=== PATIENT | female | born 1980 | race African-American/Black ===

== ENCOUNTER 2017-07-27 04:04 | Emergency (ER) | payer MEDICAID ==
[~2017-07-27] VITALS: Ht 165.1 cm; Wt 59.9 kg
[2017-07-27 05:16] LABS: Basophils # (auto) 0.1 uL; Basophils % (auto) 0.6 % (0.0-2.0); Eosinophils # (auto) 0 uL; Eosinophils % (auto) 0.2 % (0.0-7.0); Hematocrit 33.6 % (36.0-46.0); Hemoglobin 11.3 g/dL (12.2-16.2); Lymphocytes # (auto) 1.9 uL; Lymphocytes % (auto) 20.9 % (10.0-50.0); Mean Corpuscular Hemoglobin 33.9 pg (28.0-32.0); Mean Corpuscular Hgb Conc. 33.5 g/dL (32.0-36.0); Monocytes # (auto) 0.5 uL; Neutrophils # (auto) 6.5 uL; Neutrophils % (auto) 72.3 % (37.0-80.0); Nucleated Red Blood Cells % 0.1 %; Platelet Count (auto) 380 10^3/uL (140-450); Red Cell Distribution Width 13.4 % (11.8-14.3); White Blood Cell 8.9 10^3/uL (4.4-10.8)
[2017-07-27 05:35] LABS: Albumin 2.3 g/dL (3.4-5.0); BUN/Creatinine Ratio 16.2; Calcium 8.5 mg/dL (8.5-10.1); Magnesium 2.1 mg/dL (1.6-2.6); Potassium 3.5 mmol/L (3.5-5.1)
[2017-07-27 05:38] LABS: Total Protein 7.6 g/dL (6.4-8.2)
[2017-07-27 08:01] VITALS: BP 123/88
[2017-07-27] MEDS ORDERED: KETOROLAC TROMETH 30 MG/ML 1ML VIAL ONE (08:18)
[2017-07-27] MEDS ORDERED: ONDANSETRON HCL 4 MG/2 ML VIAL ONE (08:19)
[2017-07-27] MEDS ORDERED: ONDANSETRON HCL 4 MG/2 ML VIAL IV ONE (08:30)
[2017-07-27] MEDS ORDERED: KETOROLAC TROMETH 30 MG/ML 1ML VIAL IV ONE (08:30)
[2017-07-27] MEDS ORDERED: SODIUM CHLORIDE 0.9% 1,000 ML IV ONE (08:30)
== END 2017-07-27 11:28 | disposition home or self-care (01) ==
LOC: ER 04:13
DX: E43 Unspecified severe protein-calorie malnutrition (principal); Z68.22 Body mass index [BMI] 22.0-22.9, adult; R11.2 Nausea with vomiting, unspecified; R19.7 Diarrhea, unspecified; Z98.890 Other specified postprocedural states
CPT/HCPCS: 36415; 74176; 80053; 82150; 83690; 83735; 84702; 85025; 96361; 96374; 96375; 99285; J1885; J2405; J7030

== ENCOUNTER 2020-01-27 12:23 | Emergency (ER) | payer MEDICAID ==
[~2020-01-27] VITALS: Ht 162.6 cm; Wt 49.9 kg
[2020-01-27 12:48] LABS: Basophils # (auto) 0.1 10 ^3/uL (0-0.2); Basophils % (auto) 0.5 % (0.0-2.0); Eosinophils # (auto) 0.1 10 ^3/uL (0-0.8); Eosinophils % (auto) 0.5 % (0.0-7.0); Hemoglobin 9.6 g/dL (12.2-16.2); Lymphocytes # (auto) 2.3 10 ^3/uL (0.4-5.4); Lymphocytes % (auto) 20.1 % (10.0-50.0); Mean Corpuscular Hgb Conc. 32.1 g/dL (32.0-36.0); Mean Corpuscular Volume 96.6 fL (80.0-100.0); Monocytes # (auto) 0.8 10 ^3/uL (0-1.3); Monocytes % (auto) 6.7 % (0.0-12.0); Neutrophils # (auto) 8.2 10 ^3/uL (1.6-8.6); Neutrophils % (auto) 72.2 % (37.0-80.0); Platelet Count (auto) 382 10^3/uL (140-450); Red Blood Cells 3.11 10^6/uL (4.0-5.20); Red Cell Distribution Width 17.3 % (11.8-14.3); White Blood Cell 11.3 10^3/uL (4.4-10.8)
[2020-01-27 13:08] LABS: Alanine Aminotransferase 40 U/L (13-56); Albumin 2.7 g/dL (3.4-5.0); Anion Gap 9 (5-15); Blood Alcohol < 3.0 mg/dL (0-5); Blood Urea Nitrogen 4 mg/dL (7-18); Calcium 8.5 mg/dL (8.5-10.1); Carbon Dioxide 26 mmol/L (21-32); Chloride 102 mmol/L (98-107); Glucose 84 mg/dL (74-106); Potassium 3.9 mmol/L (3.5-5.1); Sodium 137 mmol/L (136-145)
[2020-01-27 13:10] LABS: Acetaminophen 4.6 ug/mL (10-30); Salicylate < 1.7 mg/dL (2.8-20.0)
[2020-01-27 13:11] LABS: Alkaline Phosphatase 153 U/L (45-117); Aspartate Aminotransferase 143 U/L (15-37); BUN/Creatinine Ratio 6.3; Bilirubin, Total 1.3 mg/dL (0.2-1.0); GFR African American 134 mL/min; GFR Non-African American 110 mL/min; Total Protein 7.9 g/dL (6.4-8.2)
[2020-01-27 17:00] VITALS: BP 98/63
== END 2020-01-27 19:36 | disposition home or self-care (01) ==
LOC: EDBD 12:23 → ER 12:23
DX: R45.851 Suicidal ideations (principal)
CPT/HCPCS: 36415; 80053; 80320; 80329; 85025

== ENCOUNTER 2020-07-01 15:50 | Inpatient (IN) | payer OTHER, MEDICAID ==
[~2020-07-01] VITALS: Ht 170.2 cm; Wt 93.8 kg
[2020-07-01] MEDS ORDERED: SODIUM CHLORIDE 0.9% 1,000 ML IVB ONE (16:15)
[2020-07-01] MEDS ORDERED: cefTRIAXone 1GM/50ML D5W 50 ML IV ONE (16:15)
[2020-07-01 17:00] LABS: Basophils # (auto) 0 10 ^3/uL (0-0.2); Eosinophils # (auto) 0 10 ^3/uL (0-0.8); Hemoglobin 7.3 g/dL (12.2-16.2); Monocytes # (auto) 1.4 10 ^3/uL (0-1.3); Monocytes % (auto) 9.6 % (0.0-12.0)
[2020-07-01 17:01] LABS: Basophils % (auto) 0.3 % (0.0-2.0); Hematocrit 23.3 % (36.0-46.0); Lymphocytes # (auto) 2.6 10 ^3/uL (0.4-5.4); Lymphocytes % (auto) 17.3 % (10.0-50.0); Mean Corpuscular Hemoglobin 35.1 pg (28.0-32.0); Mean Corpuscular Hgb Conc. 31.6 g/dL (32.0-36.0); Mean Corpuscular Volume 111.1 fL (80.0-100.0); Neutrophils # (auto) 10.8 10 ^3/uL (1.6-8.6); Neutrophils % (auto) 72.8 % (37.0-80.0); Nucleated Red Blood Cells % 0.2 %; Platelet Count (auto) 318 10^3/uL (140-450); Red Blood Cells 2.09 10^6/uL (4.0-5.20); White Blood Cell 14.8 10^3/uL (4.4-10.8)
[2020-07-01 17:05] LABS: Red Cell Distribution Width 27.1 % (11.8-14.3)
[2020-07-01 17:07] LABS: Alanine Aminotransferase 18 U/L (13-56); Albumin 1.4 g/dL (3.4-5.0); Anion Gap 12 (5-15); Blood Urea Nitrogen 10 mg/dL (7-18); Calcium 6.9 mg/dL (8.5-10.1); Carbon Dioxide 19 mmol/L (21-32); Chloride 104 mmol/L (98-107); Glucose 116 mg/dL (74-106); Potassium 3.5 mmol/L (3.5-5.1); Sodium 135 mmol/L (136-145)
[2020-07-01 17:10] LABS: Lactic Acid w/Reflex 7.4 mmol/L (0.4-2.0)
[2020-07-01 17:15] LABS: Alkaline Phosphatase 131 U/L (45-117); Aspartate Aminotransferase 115 U/L (15-37); Bilirubin, Total 3.5 mg/dL (0.2-1.0); GFR African American 44 mL/min; GFR Non-African American 37 mL/min; Total Protein 6.9 g/dL (6.4-8.2)
[2020-07-01] MEDS ORDERED: SODIUM CHLORIDE 0.9% 1,000 ML IV ONE (17:45)
[2020-07-01] MEDS: NOREPINEPHRINE 8 MG/250ML KIT 250 ML IV SCH (19:20)
[2020-07-01 22:27] LABS: Urine Bacteria NONE SEEN /hpf (None Seen); Urine Blood 2+ /uL (Negative); Urine Hyaline Cast MANY /lpf (0 - 2); Urine Mucus FEW (None Seen); Urine Specific Gravity 1.023 (1.001-1.035); Urine WBC 28 /hpf (0 - 5); Urine WBC Clumps PRESENT /hpf (None Seen)
[2020-07-01 22:34] LABS: Amphetamine Screen, Urine NEGATIVE (NEGATIVE); Barbiturate Scree,Urine NEGATIVE (NEGATIVE); Benzodiazephine Screen, Urine NEGATIVE (NEGATIVE); Cannabinoid Screen, Urine NEGATIVE (NEGATIVE); Cocaine Screen, Urine NEGATIVE (NEGATIVE); Opiate Scree,Urine NEGATIVE (NEGATIVE); Phencyclidine Screen, Urine NEGATIVE (NEGATIVE)
[2020-07-02] VITALS (66 sets, daily range): BP systolic 84–111; BP diastolic 44–63
[2020-07-02] MEDS ORDERED: MORPHINE SULF INJ 2 MG/ML SYRINGE 1ML IV PRN (00:45)
[2020-07-02] MEDS ORDERED: SODIUM CHLORIDE 0.9% 1,000 ML IV SCH (00:45)
[2020-07-02] MEDS ORDERED: NITROGLYCERIN 0.4 MG SL TAB SL PRN (00:45)
--- NOTE | 2020-07-02 02:45 | NUR ---
RECIEVED PATIENT BY SEAN FROM ER. PLACED IN ICU BED 107. NEW EKG PADS AND LEADS APPLIED. O2 SAT HOOKED UP. LEVOPHED AT 8 MCG. NS AT 100CC/HR. HAS 2 PERIPHERAL IVS. 20G IN RAC AND 20G IN LEFT FOREARM. BOTH SHOW NO REDNESS, SWELLING OR DRNG. BLACK INDEPENDENTLY. AMELIA. SPEECH SLOW. ORIENTED TO SELF AND FAMILY. ANSWERING YES TO ALL QUIESTIONS ASKED OF HER. SHE IS NOT GIVING DETAILS OF DATES , TIMES AND HOW SHE GOT HERE. SHE JUST REMEMBERS BEING WEAK. LACTIC ACID IS HIGH AND IS COMING DOWN. HISTORY OF ANEMIA, HG IS 7.3. CALLED CHRISTIANO TO INFORM HIM OF WHERE SHE WAS AND HER CURRENT CONDITION. PASSWORD SET UP. SOME HISTORY AND CURRENT MEDICATION LIST OBTAINED FROM HIM.
[2020-07-02] MEDS ORDERED: SUCR1TAB22 OR (03:53)
[2020-07-02] MEDS ORDERED: GABA250S2 PO (03:56)
[2020-07-02] MEDS ORDERED: AMIT25TA9 PO (03:57)
[2020-07-02] MEDS ORDERED: CYCL7.5T45 PO (03:58)
--- NOTE | 2020-07-02 04:00 | NUR ---
ORIENTED TO HERSELF, THE FACT THAT SHE IS IN THE HOSPITAL. KEEPS SAYING "YES " TO EVERYTHING. SOFIA
--- NOTE | 2020-07-02 04:07 | NUR ---
AM LABS DRAWN
[2020-07-02 04:19] LABS: Basophils # (auto) 0.1 10 ^3/uL (0-0.2); Basophils % (auto) 0.5 % (0.0-2.0); Eosinophils # (auto) 0 10 ^3/uL (0-0.8); Eosinophils % (auto) 0.2 % (0.0-7.0); Hematocrit 23.6 % (36.0-46.0); Hemoglobin 7.3 g/dL (12.2-16.2); Lymphocytes # (auto) 5.5 10 ^3/uL (0.4-5.4); Mean Corpuscular Hemoglobin 35.4 pg (28.0-32.0); Mean Corpuscular Hgb Conc. 30.8 g/dL (32.0-36.0); Mean Corpuscular Volume 114.9 fL (80.0-100.0); Monocytes # (auto) 1.3 10 ^3/uL (0-1.3); Monocytes % (auto) 7.5 % (0.0-12.0); Neutrophils # (auto) 10.8 10 ^3/uL (1.6-8.6); Neutrophils % (auto) 60.8 % (37.0-80.0); Nucleated Red Blood Cells % 0.2 %; Platelet Count (auto) 311 10^3/uL (140-450); Red Blood Cells 2.05 10^6/uL (4.0-5.20); Red Cell Distribution Width 27.4 % (11.8-14.3); White Blood Cell 17.7 10^3/uL (4.4-10.8)
[2020-07-02 04:42] LABS: Albumin 1.4 g/dL (3.4-5.0); Calcium 6.6 mg/dL (8.5-10.1); Magnesium 2.1 mg/dL (1.6-2.6); Potassium 3.5 mmol/L (3.5-5.1)
[2020-07-02 04:45] LABS: BUN/Creatinine Ratio 9.4; Bilirubin, Total 3.5 mg/dL (0.2-1.0); Phosphorus 3.1 mg/dL (2.5-4.90)
[2020-07-02] MEDS: PIPERACILLIN-TAZOB 3.375GM 100 ML IV SCH ×3 (05:28→21:33)
--- NOTE | 2020-07-02 05:30 | NUR ---
ORIENTED TO SELF AND THAT SHE IS IN THE HOSPITAL. SPIT A SMALL AMOUNT OF COFFEE GROUND ON TO THE RAIL OF THE BED AND FLOOR.
[2020-07-02] MEDS: ONDANSETRON HCL 4 MG/2 ML VIAL IV PRN (06:38)
--- NOTE | 2020-07-02 06:50 | NUR ---
ZOFRAN FOR NAUSEA. VOMITED A SMALL AMOUNT OF COFFEE GROUND
[2020-07-02] MEDS ORDERED: HEPARIN SODIUM (PORCINE) 5000 UNITS/ML 1ML VIAL IV SCH (10:00)
[2020-07-02] MEDS: PANTOPRAZOLE 40 MG/10 ML VIAL INJ IV SCH ×2 (10:12→21:33)
[2020-07-02] MEDS: D5W/LACTATED RINGERS 1,000 ML IV SCH ×2 (10:13→18:29)
--- NOTE | 2020-07-02 10:26 | NUR ---
Resumed care at 0725, orders reviewed and ongoing assessments being done. Upon arrival in bed asleep but easily awaken. Was able to state name only and not speaking in sentences. Only answering yes to all questions. Very weak and lethargic. Oriented to staff, place, situation and plan of care. Dr. Martinez phoned in at 0827. Discussed case and reviewed data. New orders obtained. Collected urine and sent to lab. for culture. Dr. Shafer in for GI consult. At bedside and discussed case. Lab work ordered. Maintaining NPO at this time and IVF running at 150/hour. PICC line nurse at bedside to insert a Midline. Spoke with Jose earlier and updated on plan of care.
--- NOTE | 2020-07-02 10:40 | NUR ---
Midline Placement: Patient educated on need for midline placement. All risks and benefits explained and all questions and concerns addresses prior to procedure. 18g/10cm midline inserted via left brachial vein using Ultrasound. Sterile technique utilized. Blood return obtained from the single lumen and flushed easily with NS using proper technique. Midline secured with saline lock; biodisc and occlusive dressing applied. Primary RN notified. Midline lot # [id number]
[2020-07-02 11:29] LABS: % Iron Saturation 88.3 % (15-50)
[2020-07-02 11:54] LABS: Folate (Folic Acid) 3.01 ng/mL (5.38-24)
[2020-07-02] MEDS ORDERED: CYANOCOBALAMIN (B-12) 1000 MCG/1 ML VIAL SUBCUT ONE (12:00)
[2020-07-02] MEDS ORDERED: FOLIC ACID 1 MG in D5W 5% 50 ML INJ ONE (12:00)
[2020-07-02] MEDS ORDERED: THIAMINE 100mg/ml INJ (200mg/2ml VIAL) IV ONE (12:15)
[2020-07-02] MEDS: SODIUM FERR GLUC 62.5MG/5ML 125 MG in SODIUM CHL 0.9% 100 ML IV SCH (12:30)
[2020-07-02] MEDS: NOREPINEPHRINE 8 MG/250ML KIT 250 ML IV SCH (14:12)
[2020-07-02] MEDS: MORPHINE SULF INJ 2 MG/ML SYRINGE 1ML IV PRN (14:18)
--- NOTE | 2020-07-02 14:57 | NUR ---
Dr. Allison resumed care and rounded at 1159 am. Discussed case at bedside and reviewed plan of care. Dr. Allison called and spoke to Jose. New orders obtained and carried out. Midline was inserted to left upper arm by Beth DOSHI, tolerated procedure well. Has been sleeping most of the shift. Medicated with Morphine 1 mg IVP at 1414. Moaning and guarding abdomen. When asked if in pain she shook her head yes. Still no speaking in sentences, only a few words at a time.
[2020-07-02 17:24] LABS: Beta HCG, Quantitative < 1 mlU/mL (1-3); Thyroid Stimulating Hormone 0.58 uIU/mL (0.358-3.74)
--- NOTE | 2020-07-02 18:38 | NUR ---
Was transported to radiology at [address] scan of the abdomen secondary to pain. Escorted by Edna DOSHI. Returned to unit at 1546 without incident. Is now awake and able to make needs known. Remains weak but is able to hold a conversation and able to use the call light. Reviewed the need for hospitalization and plan of care. No nausea at this time and remains on Levophed for hemodynamic stability. She expressed that she does not want us speaking with her Jose Johnson and would prefer us to contact her sister Elsy Aranda [phone]. Jose just phoned and made him aware of her wishes.
--- NOTE | 2020-07-02 19:40 | NUR ---
OPENING NOTE REPORT RECEIVED FROM OCTAVIA DOSHI. PATIENT IS A/OX4 AT THIS TIME, ABLE TO ANSWER ALL QUESTIONS APPROPRIATELY. PATIENT IS CONNECTED TO CONTINUOUS BEDSIDE MONITORS. HEART RATE IN LOW 100'S, SPO2 95% ON ROOM AIR. IV TO LEFT UPPER ARM MIDLINE RUNNING D5WLR @150ML/HR AND LEVOPHED AT 8MCG/MIN. PERIPHERAL IV TO LEFT FOREARM RUNNING NS TKO @10ML/HR. PHYSICAL ASSESSMENT DONE-SEE INTERVENTIONS. LEUNG DRAINING DARK HUY URINE TO GRAVITY. PATIENT DENIES ANY PAIN OR DISTRESS AT THIS TIME. POC DISCUSSED WITH PATIENT. WILL MONITOR BP CLOSELY.
--- NOTE | 2020-07-02 20:46 | NUR ---
AM SERUM GLUCOSE 66 - FINGER STICK 168
[2020-07-03] VITALS (96 sets, daily range): BP systolic 89–115; BP diastolic 51–78
[2020-07-03] MEDS: D5W/LACTATED RINGERS 1,000 ML IV SCH ×3 (00:44→14:36)
--- NOTE | 2020-07-03 00:52 | NUR ---
PAGED HOSPITALIST HOSPITALIST PAGED REGARDING: PATIENT C/O ITCHING. PATIENT STATES, "IT FEELS LIKE SOMETHING IS CRAWLING ON MY HEAD AND CHEST". PATIENT IS RESTLESS AND KEEPS SCRATCHING HEAD AND ABDOMINAL AREA. PATIENT REQUESTS, "CAN I HAVE SOMETHING TO HELP THE ITCHING?". NO CURRENT ORDERS. AWAITING CALL BACK FROM .
--- NOTE | 2020-07-03 00:55 | NUR ---
MD CALLED BACK SPOKE WITH HOSPITALIST . UPDATED MD ON PATIENT STATUS AND PATIENT C/O CONSTANT ITCHING. NEW TELEPHONE ORDER RECEIVED FOR BENADRYL 50MG PO ONE TIME. ORDER READ BACK AND VERIFIED, WILL CARRY OUT ORDER.
[2020-07-03] MEDS ORDERED: diphenhdrAMINE HCL 25 MG CAP PO ONE (01:00)
[2020-07-03] MEDS: ONDANSETRON HCL 4 MG/2 ML VIAL IV PRN ×2 (01:07→15:30)
--- NOTE | 2020-07-03 01:37 | NUR ---
BLADDER SCAN PATIENT URINE IS DARK HUY IN COLOR, VERY LITTLE URINE NOTED IN LEUNG BAG. BLADDER SCAN PERFORMED, ONLY 41ML DETECTED. PATIENT DENIES ANY FEELINGS OF FULLNESS OR DISTENTION. WILL CONTINUE TO MONITOR CLOSELY.
--- NOTE | 2020-07-03 01:51 | NUR ---
ROUNDED: COVERING ASSIGNED RN FOR BREAK. PATIENT DENIES ANY NEEDS AT THIS TIME. DENIES PAIN, NO PAIN BEHAVIORS IDENTIFIED. DOES NOT WANT THE LIGHTS TURNED OFF. EVEN AND UNLABORED BREATHING. NO SIGNS OF DISTRESS, VSS. WILL ENDORSE CARE BACK TO ASSIGNED RN
--- NOTE | 2020-07-03 02:46 | NUR ---
HOSPITALIST PAGED HOSPITALIST PAGED REGARDING: PATIENT STILL FEELING ITCHY, SCRATCHING NON STOP. WILL WAIT FOR MD TO CALL BACK.
--- NOTE | 2020-07-03 02:51 | NUR ---
MD CALLED BACK SPOKE WITH MD GEORGE. MD UPDATED ON PATIENT STATUS AND PATIENT COMPLAINT OF CONSTANT ITCHING. NEW ORDER TO RESTART PATIENT HOME DOSE OF GABAPENTIN 600MG TID, STARTING NOW. ORDER READ BACK AND VERIFIED, WILL CARRY OUT ORDER.
[2020-07-03] MEDS: GABAPENTIN 300 MG CAP PO SCH ×4 (03:09→21:53)
--- NOTE | 2020-07-03 04:30 | NUR ---
AM CARE PATIENT GIVEN COMPLETE BED BATH USING CHG WIPES. ALL NEW LINEN AND GOWN PROVIDED TO PATIENT. PATIENT WAS ABLE TO ASSIST WITH TURNING. SKIN REASSESSED AT THIS TIME, NO CHANGES NOTED, SKIN ALL INTACT.
[2020-07-03 04:35] LABS: Basophils # (auto) 0.1 10 ^3/uL (0-0.2); Basophils % (auto) 0.4 % (0.0-2.0); Eosinophils # (auto) 0.1 10 ^3/uL (0-0.8); Mean Corpuscular Hemoglobin 35.3 pg (28.0-32.0); Monocytes # (auto) 1.5 10 ^3/uL (0-1.3); Monocytes % (auto) 8.8 % (0.0-12.0); Neutrophils % (auto) 59.7 % (37.0-80.0); Nucleated Red Blood Cells % 0.1 %; White Blood Cell 17.2 10^3/uL (4.4-10.8)
[2020-07-03 04:37] LABS: Eosinophils % (auto) 0.9 % (0.0-7.0); Hematocrit 20.6 % (36.0-46.0); Lymphocytes # (auto) 5.2 10 ^3/uL (0.4-5.4); Lymphocytes % (auto) 30.2 % (10.0-50.0); Mean Corpuscular Hgb Conc. 31.7 g/dL (32.0-36.0); Mean Corpuscular Volume 111.6 fL (80.0-100.0); Neutrophils # (auto) 10.3 10 ^3/uL (1.6-8.6); Platelet Count (auto) 287 10^3/uL (140-450); Red Blood Cells 1.84 10^6/uL (4.0-5.20)
[2020-07-03 04:43] LABS: Hemoglobin 6.5 g/dL (12.2-16.2); Red Cell Distribution Width 26.6 % (11.8-14.3)
[2020-07-03 04:54] LABS: Lactic Acid w/Reflex 3.4 mmol/L (0.4-2.0)
[2020-07-03 04:55] LABS: Potassium 2.6 mmol/L (3.5-5.1)
[2020-07-03 04:58] LABS: Albumin 1.3 g/dL (3.4-5.0); BUN/Creatinine Ratio 15.2; Bilirubin, Total 3.3 mg/dL (0.2-1.0); Calcium 6.6 mg/dL (8.5-10.1); Total Protein 6.8 g/dL (6.4-8.2)
--- NOTE | 2020-07-03 05:08 | NUR ---
PAGED PAGED HOSPITALIST REGARDING CRITICAL HEMOGLOBIN AND POTASSIUM LEVELS. AWAITING CALL BACK.
[2020-07-03] MEDS: PIPERACILLIN-TAZOB 3.375GM 100 ML IV SCH ×3 (05:36→21:53)
--- NOTE | 2020-07-03 06:07 | NUR ---
MEDICATION HELD 0600 GABAPENTIN HELD. PATIENT WAS RESTARTED ON GABAPENTIN AT 0300 THIS AM.
--- NOTE | 2020-07-03 06:11 | NUR ---
RE-PAGED HOSPITALIST REGARDING PATIENTS CRITICAL HGB AND POTASSIUM LEVELS. STILL AWAITING FOR A CALL BACK.
--- NOTE | 2020-07-03 06:19 | NUR ---
HOSPITALIST CALLED BACK SPOKE WITH . UPDATED MD ON CRITICAL LAB VALUES. MD AWARE THAT PATIENT IS A JEHOVAH WITNESS AND HAS REFUSED ANY BLOOD PRODUCT. PATIENT SIGNED BLOOD PRODUCT REFUSAL FORM, WITNESSED BY GLENDA JACKSON. MD MADE AWARE OF CRITICAL POTASSIUM LEVEL OF 2.6. NEW ORDER RECEIVED FOR 80MEQ K-RIDER IV. ORDER READ BACK AND VERIFIED. ALSO MENTIONED TO MD THAT TOTAL URINE OUTPUT FOR SHIFT WAS 200ML. PER MD, "LET'S WAIT UNTIL HER ELECTROLYTES ARE REPLACED AND SEE IF OUTPUT IMPROVES".
[2020-07-03] MEDS: POTASSIUM CHL 20MEQ/100ML 100 ML IV SCH ×4 (06:42→13:25)
--- NOTE | 2020-07-03 07:15 | NUR ---
CLOSING REPORT ENDORSED TO OCTAVIA COWAN PATIENT ON 2MCG/MIN OF LEVO, D5WLR AT 150ML/HR. K RIDER RUNNING THROUGH LEFT FOREARM IV. PATIENT SLEEPING, NO SIGNS OF DISTRESS.
--- NOTE | 2020-07-03 08:00 | NUR ---
Opening Shift Note Assumed care of patient, laying in bed, eyes closed, arousable to shaking, patient was given Benadryl IV at 0100. No S/S of distress/SOB or pain. See interventions for complete assessment. Bed locked on low position, side rails up x2, bed alarms on at all times, call trimble within reach, instructed on POC and to call for assist PRN, will continue to monitor for changes Q1hr and PRN.
[2020-07-03] MEDS: PANTOPRAZOLE 40 MG/10 ML VIAL INJ IV SCH ×2 (09:25→21:53)
[2020-07-03] MEDS: THIAMINE 100mg/ml INJ (200mg/2ml VIAL) IV SCH (09:26)
[2020-07-03] MEDS: CYANOCOBALAMIN (B-12) 1000 MCG/1 ML VIAL SUBCUT SCH ×2 (10:00→10:14)
[2020-07-03] MEDS: FOLIC ACID 1 MG in D5W 5% 50 ML INJ SCH (10:11)
--- NOTE | 2020-07-03 10:26 | NUR ---
Patient refused B12 injection, unable to waste med on the pyxiNoreen hamm [facility] ED informed.
--- NOTE | 2020-07-03 11:43 | NUR ---
Dr Shafer at bedside, updated on patient's status. Patient seen and examined. Will carry our new orders.
[2020-07-03] MEDS ORDERED: POTASSIUM CHL 20 Meq TABLET PO ONE (12:30)
--- NOTE | 2020-07-03 12:50 | NUR ---
Dr Clemons at bedside. Updated on patient's status. Patient seen and examined. Will carry out new orders.
--- NOTE | 2020-07-03 12:55 | NUR ---
Per Dr Clemons patient can be transferred to TRAE once off Levophed drip.
[2020-07-03] MEDS: SODIUM FERR GLUC 62.5MG/5ML 125 MG in SODIUM CHL 0.9% 100 ML IV SCH (13:26)
--- NOTE | 2020-07-03 15:00 | NUR ---
Patient started throwing up after finishing lunch at 1400, will keep patient NPO at this time and give Zofran PRN. Will continue to monitor.
--- NOTE | 2020-07-03 16:00 | NUR ---
Levophed turned off, will continue to monitor.
--- NOTE | 2020-07-03 18:45 | NUR ---
Patient's urine output 150ml for the past 12 hours, paged Dr Goode and called back, will carry out new orders.
[2020-07-03] MEDS ORDERED: ALBUMIN 25% 50 ML IV ONE (19:00)
[2020-07-03 19:11] LABS: BUN/Creatinine Ratio 18.9; Potassium 3.9 mmol/L (3.5-5.1)
--- NOTE | 2020-07-03 19:30 | NUR ---
OPENING NOTE REPORT RECEIVED FROM OCTAVIA DOSHI PATIENT IS A/OX4 CONNECTED TO CONTINUOUS MONITORS. PATIENT IS ON ROOM AIR WITH SPO2 >95%, NO SIGNS OF DISTRESS NOTED. MIDLINE TO LEFT UPPER ARM RUNNING D5WLR AT 100ML/HR. IV TO LEFT FOREARM RUNNING NS TKO AT 10ML/HR. BOTH IV SITES ARE PATENT AND ASYMPTOMATIC. LEUNG DRAINING DARK HUY URINE TO GRAVITY. PHYSICAL ASSESSMENT DONE-SEE INTERVENTIONS. CALL LIGHT WITHIN REACH.
[2020-07-04] VITALS (42 sets, daily range): BP systolic 93–112; BP diastolic 49–73
[2020-07-04] MEDS: D5W/LACTATED RINGERS 1,000 ML IV SCH ×2 (00:25→11:44)
[2020-07-04] MEDS: ALBUMIN 25% 50 ML IV SCH ×3 (03:16→21:09)
--- NOTE | 2020-07-04 04:30 | NUR ---
AM CARE PATIENT WAS GIVEN COMPLETE BED BATH AND LINEN CHANGE. PATIENT CLEANED WITH CHG WIPES. FACE CLEANED WITH WARM SOAPY WASH CLOTH. COMPLETE LINEN CHANGE PROVIDED ALONG WITH GOWN. PATIENT ABLE TO ASSIST WITH TURNS. SKIN REASSESSED AT THIS TIME, NO CHANGE AT THIS TIME.
[2020-07-04 04:57] LABS: Basophils # (auto) 0 10 ^3/uL (0-0.2); Eosinophils # (auto) 0.1 10 ^3/uL (0-0.8); Hematocrit 18.1 % (36.0-46.0); Neutrophils # (auto) 7.2 10 ^3/uL (1.6-8.6); Nucleated Red Blood Cells % 0.3 %; Red Blood Cells 1.67 10^6/uL (4.0-5.20)
[2020-07-04 04:59] LABS: Basophils % (auto) 0.3 % (0.0-2.0); Eosinophils % (auto) 0.6 % (0.0-7.0); Lymphocytes # (auto) 2.7 10 ^3/uL (0.4-5.4); Lymphocytes % (auto) 24.3 % (10.0-50.0); Mean Corpuscular Hemoglobin 35.2 pg (28.0-32.0); Mean Corpuscular Hgb Conc. 32.6 g/dL (32.0-36.0); Mean Corpuscular Volume 108.2 fL (80.0-100.0); Monocytes # (auto) 1.2 10 ^3/uL (0-1.3); Monocytes % (auto) 10.4 % (0.0-12.0); Neutrophils % (auto) 64.4 % (37.0-80.0); Platelet Count (auto) 240 10^3/uL (140-450); White Blood Cell 11.2 10^3/uL (4.4-10.8)
[2020-07-04 05:01] LABS: Hemoglobin 5.9 g/dL (12.2-16.2); Red Cell Distribution Width 25.3 % (11.8-14.3)
[2020-07-04 05:15] LABS: Albumin 1.6 g/dL (3.4-5.0); Calcium 7.1 mg/dL (8.5-10.1); Potassium 3.4 mmol/L (3.5-5.1)
[2020-07-04 05:17] LABS: BUN/Creatinine Ratio 17.3; Bilirubin, Total 3.3 mg/dL (0.2-1.0); Total Protein 6.4 g/dL (6.4-8.2)
--- NOTE | 2020-07-04 05:21 | NUR ---
CRITICAL HGB PATIENT HAS A CRITICAL HEMOGLOBIN LEVEL OF 5.9. PATIENT IS A JEHOVAH WITNESS WITH A SIGNED REFUSAL FOR ANY BLOOD PRODUCTS. NO ACTIVE BLEED NOTED, VITALS STABLE.
[2020-07-04] MEDS: PIPERACILLIN-TAZOB 3.375GM 100 ML IV SCH ×3 (05:28→21:08)
[2020-07-04] MEDS: GABAPENTIN 300 MG CAP PO SCH ×3 (05:29→21:12)
--- NOTE | 2020-07-04 05:50 | NUR ---
REPORT/SBAR CALLED AND GAVE REPORT TO GLENAD REGAN TO ASSUME CARE OF PATIENT. ALL QUESTIONS ANSWERED.
--- NOTE | 2020-07-04 06:03 | NUR ---
ICU patient trans to TRAE URSULA MONTOYA transferred to room 264 via gurney on campus monitor and portable 02. All patient medications and personal belongings transferred with patient to receiving floor. Patient care transferred to GLENDA Fulton.
--- NOTE | 2020-07-04 06:10 | NUR ---
Received report from Fabiola DOSHI. Pt brought to room 264 and connected to unit monitor. Pt introduced to Primary RN Kirstin and CHEVY Harman. No S/S of distress at this time. Will continue to monitor.
[2020-07-04] MEDS: MORPHINE SULF INJ 2 MG/ML SYRINGE 1ML IV PRN (07:07)
--- NOTE | 2020-07-04 07:07 | NUR ---
Pt states pain 8/10 to lower back. Morphine given. Will continue to monitor.
--- NOTE | 2020-07-04 07:15 | NUR ---
START OF SHIFT RECEIVED PATIENT AWAKE AND PREPARED FOR BREAKFAST SITTING UP IN BED, PAIN RELIEVED BY MEDICATION; STILL SLIGHT ITCHY FEELING NO RASH, TRAY GIVEN AND STARTED EATING. O2 SAT GOOD ON ROOM AIR, ALERT AND COOPERATIVE.
--- NOTE | 2020-07-04 07:30 | NUR ---
Pt remains stable. Resting in bed watching TV. Report given to AM shift, care endorsed.
[2020-07-04] MEDS: PANTOPRAZOLE 40 MG/10 ML VIAL INJ IV SCH ×2 (10:17→21:08)
[2020-07-04] MEDS: THIAMINE 100mg/ml INJ (200mg/2ml VIAL) IV SCH (10:23)
[2020-07-04] MEDS: FOLIC ACID 1 MG in D5W 5% 50 ML INJ SCH (10:39)
[2020-07-04] MEDS ORDERED: POTASSIUM EFFERVESENT TAB 25 MEQ PO ONE (10:45)
[2020-07-04] MEDS ORDERED: diphenhdrAMINE HCL 25 MG CAP PO SCH (11:30)
[2020-07-04] MEDS: Ensure HIGH Protein Chocolate 8oz Bottle PO SCH ×3 (12:00→22:00)
[2020-07-04] MEDS: SODIUM FERR GLUC 62.5MG/5ML 125 MG in SODIUM CHL 0.9% 100 ML IV SCH (12:44)
[2020-07-04] MEDS: diphenhdrAMINE HCL 50 MG/1 ML VL IV SCH ×2 (13:45→17:32)
--- NOTE | 2020-07-04 15:00 | NUR ---
RN NOTES PATIENT RESTING COMFORTABLY AFTER BENADRYL GIVEN IV ORDERED FOR ITCHING, NO RASH NOTED ON SKIN, PATIENT ALLOWED TO SLEEP, ATE LITTLE AT LUNCH.
--- NOTE | 2020-07-04 18:30 | NUR ---
SHIFT SUMMARY PATIENT RESTING MOSTLY AFTER BENADRYL FOR ITCHING, REMAINS TO HAVE POOR APPETITE AND WOULD ONLY TAKE ICE CHIPS, TURNS TO SIDE WITH SOME HELP, MONITOR SHOW SINUS TACHYCARDIA 110-120 EVEN WHEN ASLEEP, O2 SATURATION GOOD ON ROOM AIR, IV'S INTACT AND PATENT.
[2020-07-05] VITALS: BP 103/52
[2020-07-05] MEDS: ONDANSETRON HCL 4 MG/2 ML VIAL IV PRN ×2 (01:30→03:16)
[2020-07-05] MEDS: guaiFENesin-DM 100/10mg/5ml SYR PO PRN ×2 (02:00→03:16)
[2020-07-05 04:00] VITALS: BP 90/46
[2020-07-05] MEDS: D5W/LACTATED RINGERS 1,000 ML IV SCH ×3 (04:30→12:54)
[2020-07-05 05:58] LABS: Albumin 1.9 g/dL (3.4-5.0); Calcium 7.2 mg/dL (8.5-10.1); Potassium 3.4 mmol/L (3.5-5.1)
[2020-07-05] MEDS: diphenhdrAMINE HCL 50 MG/1 ML VL IV SCH ×4 (06:00→18:00)
[2020-07-05] MEDS: Ensure HIGH Protein Chocolate 8oz Bottle PO SCH ×4 (06:00→21:30)
[2020-07-05 06:02] LABS: BUN/Creatinine Ratio 15.4; Bilirubin, Total 4.7 mg/dL (0.2-1.0); Total Protein 6.4 g/dL (6.4-8.2)
[2020-07-05] MEDS: PIPERACILLIN-TAZOB 3.375GM 100 ML IV SCH ×3 (06:26→21:30)
[2020-07-05] MEDS: GABAPENTIN 300 MG CAP PO SCH ×3 (06:26→21:42)
[2020-07-05 07:16] LABS: Basophils # (auto) 0.1 10 ^3/uL (0-0.2); Basophils % (auto) 0.4 % (0.0-2.0); Eosinophils # (auto) 0.1 10 ^3/uL (0-0.8); Eosinophils % (auto) 0.7 % (0.0-7.0); Lymphocytes # (auto) 2.6 10 ^3/uL (0.4-5.4); Lymphocytes % (auto) 18.7 % (10.0-50.0); Mean Corpuscular Hemoglobin 35.8 pg (28.0-32.0); Mean Corpuscular Hgb Conc. 33.4 g/dL (32.0-36.0); Mean Corpuscular Volume 107.3 fL (80.0-100.0); Monocytes # (auto) 1.4 10 ^3/uL (0-1.3); Monocytes % (auto) 9.9 % (0.0-12.0); Neutrophils # (auto) 9.9 10 ^3/uL (1.6-8.6); Neutrophils % (auto) 70.3 % (37.0-80.0); Nucleated Red Blood Cells % 0.5 %; Platelet Count (auto) 260 10^3/uL (140-450); Red Blood Cells 1.68 10^6/uL (4.0-5.20)
[2020-07-05 07:17] LABS: Red Cell Distribution Width 25.4 % (11.8-14.3)
[2020-07-05 08:00] VITALS: BP 99/50
--- NOTE | 2020-07-05 08:00 | NUR ---
OPENING SHIFT NOTE Received report from NOC RNKirstin. Assume care of patient. Received patient lying in bed, connected to bedside monitor with alarms in place. Patient is A&Ox4, but slow to respond. Patient c/o pain 7/10 to back and will medicate appropriately. Patient with no other s/s of distress noted. Patient on 2L NC with O2 sats 100%. Left upper arm midline #18 patent with IV antibiotics infusing. Guthrie draining clear wayne urine. Bed in lowest position, rails x3 up and call light within reach. Updated on plan of care. Will continue to monitor.
--- NOTE | 2020-07-05 08:13 | NUR ---
Pt remains flat affect during this shift. Emesis at 0115 100ml bile. Pt bathed and linens changed. Denied nausea but was coughing so much she vomited. MD paged for orders, cough medicine ordered. Pt refusing Benadryl stating something happens to her when she gets it but does not say what is happening. Pt also refused PM gabapentin and ensure drink. Report given to AM shift, care endorsed.
[2020-07-05] MEDS: MORPHINE SULF INJ 2 MG/ML SYRINGE 1ML IV PRN ×2 (09:23→18:28)
[2020-07-05] MEDS: FOLIC ACID 1 MG in D5W 5% 50 ML INJ SCH (10:37)
[2020-07-05] MEDS: THIAMINE 100mg/ml INJ (200mg/2ml VIAL) IV SCH (10:38)
[2020-07-05] MEDS: PANTOPRAZOLE 40 MG/10 ML VIAL INJ IV SCH ×2 (10:38→21:30)
[2020-07-05 12:00] VITALS: BP 102/56
[2020-07-05] MEDS: SODIUM FERR GLUC 62.5MG/5ML 125 MG in SODIUM CHL 0.9% 100 ML IV SCH (12:02)
--- NOTE | 2020-07-05 12:23 | NUR ---
MD Dr Clemons at bedside to see patient.
[2020-07-05] MEDS ORDERED: PARoxetine 20 MG TAB PO ONE (12:30)
[2020-07-05] MEDS ORDERED: POTASSIUM CHL 20 Meq TABLET PO ONE (12:30)
[2020-07-05] MEDS ORDERED: POTASSIUM EFFERVESENT TAB 25 MEQ PO ONE (13:00)
--- NOTE | 2020-07-05 14:00 | NUR ---
MEDICATIONS Held 1400 Gabapentin. Patient sleeping and difficult to wake. Previous dose taken late. Patient still with effervescent potassium at bedside that she hasn't completed. Will continue to monitor.
--- NOTE | 2020-07-05 14:10 | NUR ---
Nutrition Assessment Notes Please refer to link for full assessment notes. Est Energy needs: 9207-0258 kcals (23-25 kcal/kgBW) Est Protein needs: 57-71 gms/day (0.8-1.0 gm/kgBW) Will continue to monitor and reassess prn. Addendum: 07/05/20 at [address] Amended: Links added.
[2020-07-05 16:00] VITALS: BP 93/50
--- NOTE | 2020-07-05 19:00 | NUR ---
RECEIVED REPORT FROM NURSE SOLORIO TO RESUME CARE OF PATIENT. PATIENT HAS BEEN DOWNGRADED TO TELEMETRY TODAY AWAITING BED PLACEMENT.
--- NOTE | 2020-07-05 19:01 | NUR ---
CLOSING SHIFT NOTE Patient sitting up in bed finishing up dinner tray. Patient is tele downgrade, awaiting bed placement. HSS/CN aware. Patient has been receiving Morphine prn for pain throughout shift. Patient with no c/o emesis/nausea during day. Patient has orders to discontinue gaxiola, but patient refused until physical therapy starts working with her. PT attempted but patient declined due to sleepiness. Will endorse removal to PETROS RN. Report to be given to Jessica MORRELL RN.
--- NOTE | 2020-07-05 19:45 | NUR ---
Opening Shift Note Assumed care of patient, awake and alert and oriented x4 in bed lying comfortably. No S/S of distress/SOB or pain 0/10. Instructed on POC and that she is downgraded to telemetry awaiting bed placement and to call for assist PRN, will continue to monitor for changes Q1hr and PRN.
[2020-07-05 20:00] VITALS: BP 102/53
--- NOTE | 2020-07-05 22:10 | NUR ---
GAVE REPORT TO NURSE BIRCH TO RESUME CARE OF PATIENT. TRANSFERRED PATIENT TO TELEMETRY BED AND PLACED PATIENT ON TELE BOX #63. PATIENT IN NO APPARENT CARDIAC OR RESPIRATORY DISTRESS OR COMPLAINTS OF PAIN OR ANY DISCOMFORT. PATIENT HAS LEUNG DRAINING TEA COLORED URINE TO GRAVITY. SALINE LOCK PATIENT IV ACCESS MIDLINE TO FRITZ. ALL BELONGINGS WITH PATIENT. PATIENT TRANSFERRED TO ROOM 272B ACCOMPANIED WITH BRADLEY.
--- NOTE | 2020-07-05 22:30 | NUR ---
TRAE pt transferred to floor URSULA MONTOYA transfered to 272B via rney on bias cutting machine operator #[id number]. All patient medications and personal belongings transfered with patient to receiving floor. Patient care transfered to QUETA DOSHI.
[2020-07-06] MEDS: diphenhdrAMINE HCL 50 MG/1 ML VL IV SCH ×3 (00:48→11:41)
[2020-07-06 05:00] VITALS: BP 98/59
[2020-07-06] MEDS: D5W/LACTATED RINGERS 1,000 ML IV SCH ×2 (05:21→22:18)
[2020-07-06] MEDS: MORPHINE SULF INJ 2 MG/ML SYRINGE 1ML IV PRN ×4 (05:55→22:57)
[2020-07-06] MEDS: PIPERACILLIN-TAZOB 3.375GM 100 ML IV SCH ×3 (06:29→22:19)
[2020-07-06] MEDS: GABAPENTIN 300 MG CAP PO SCH ×3 (06:29→22:19)
[2020-07-06] MEDS: Ensure HIGH Protein Chocolate 8oz Bottle PO SCH ×4 (07:05→22:19)
[2020-07-06 09:00] VITALS: BP 99/59
[2020-07-06] MEDS: PANTOPRAZOLE 40 MG/10 ML VIAL INJ IV SCH (09:09)
[2020-07-06] MEDS: THIAMINE 100mg/ml INJ (200mg/2ml VIAL) IV SCH (09:09)
[2020-07-06] MEDS: PARoxetine 20 MG TAB PO SCH (09:10)
--- NOTE | 2020-07-06 09:10 | NUR ---
Scheduled medications given per order. Patient requested medication for back pain. Will medicate. Addendum: 07/06/20 at 09 by ELIESER OSPINA RN RN Patient medicated for 03/17 back pain. Patient stable at this time.
[2020-07-06] MEDS ORDERED: LACTULOSE 20Gm/30ML SOLN PO PRN (10:00)
[2020-07-06] MEDS: FOLIC ACID 1 MG in D5W 5% 50 ML INJ SCH (11:41)
--- NOTE | 2020-07-06 12:05 | NUR ---
Patient resting comfortably in bed with eyes closed. No distress noted. Patient stable.
--- NOTE | 2020-07-06 12:25 | NUR ---
Patient stable with Dr. Clemons at bedside.
[2020-07-06 13:00] VITALS: BP 100/59
--- NOTE | 2020-07-06 14:05 | NUR ---
Scheduled medications given per order. Patient stable at this time.
--- NOTE | 2020-07-06 16:00 | NUR ---
Patient resting comfortably in bed with no distress noted. Patient stable.
[2020-07-06 17:00] VITALS: BP 89/56
--- NOTE | 2020-07-06 18:24 | NUR ---
Patient medicated for 6/10 back pain. Patient stable at this time.
--- NOTE | 2020-07-06 18:47 | NUR ---
Patient resting quietly in bed; states pain is slowly subsiding. Patient stable throughout shift.
[2020-07-06 22:00] VITALS: BP 108/66
[2020-07-07 05:00] VITALS: BP 99/45
[2020-07-07] MEDS: MORPHINE SULF INJ 2 MG/ML SYRINGE 1ML IV PRN ×2 (05:37→09:28)
[2020-07-07] MEDS: PIPERACILLIN-TAZOB 3.375GM 100 ML IV SCH ×3 (05:55→21:57)
[2020-07-07] MEDS: GABAPENTIN 300 MG CAP PO SCH ×3 (05:56→21:58)
[2020-07-07] MEDS: Ensure HIGH Protein Chocolate 8oz Bottle PO SCH ×4 (05:56→21:57)
[2020-07-07 07:01] LABS: Hematocrit 19.1 % (36.0-46.0); Mean Corpuscular Hgb Conc. 32.8 g/dL (32.0-36.0); Mean Corpuscular Volume 109.9 fL (80.0-100.0); Platelet Count (auto) 315 10^3/uL (140-450); Red Blood Cells 1.74 10^6/uL (4.0-5.20); White Blood Cell 20.3 10^3/uL (4.4-10.8)
[2020-07-07 07:16] LABS: Potassium 3.3 mmol/L (3.5-5.1)
[2020-07-07 07:21] LABS: Albumin 1.6 g/dL (3.4-5.0); BUN/Creatinine Ratio 14.6; Bilirubin, Total 4.8 mg/dL (0.2-1.0); Calcium 7.2 mg/dL (8.5-10.1); Total Protein 6.5 g/dL (6.4-8.2)
[2020-07-07 07:23] LABS: Red Cell Distribution Width 25.9 % (11.8-14.3)
[2020-07-07 07:27] LABS: Hemoglobin 6.3 g/dL (12.2-16.2)
[2020-07-07 07:28] LABS: Basophils % (manual) 0 (0.0-2.0); Blast Cells 0; Myelocytes % 0; Promyelocytes % 0; Reactive Lymphocytes 0
--- NOTE | 2020-07-07 07:50 | NUR ---
Patient eating breakfast at this time. Requested medication for back pain. Explained that pain med was given at 0537; due prn q4h. Patient stable at this time.
[2020-07-07 08:00] VITALS: BP 110/60
[2020-07-07 08:05] LABS: Band Neutrophils % (manual) 1; Eosinophils % (manual) 2 (0-7); Lymphocytes % (manual) 19 (10.0-50.0); Metamyelocytes % 1; Monocytes % (manual) 5 (0-12)
[2020-07-07] MEDS: FOLIC ACID 1 MG TAB PO SCH (09:26)
[2020-07-07] MEDS: PARoxetine 20 MG TAB PO SCH (09:26)
[2020-07-07] MEDS: PANTOPRAZOLE 40 MG TAB PO SCH (09:26)
[2020-07-07] MEDS: THIAMINE HCL 100 MG TAB PO SCH (09:27)
--- NOTE | 2020-07-07 09:29 | NUR ---
Scheduled medications and pain medication given per order. Patient resting quietly in bed at this time. Stable.
--- NOTE | 2020-07-07 10:40 | NUR ---
Received call back from Dr. Clemons. Doctor informed of critical lab: hgb 6.3. No new order given (pt is [facility]).
[2020-07-07 12:00] VITALS: BP 104/57
[2020-07-07] MEDS ORDERED: SODIUM FERR GLUC 62.5MG/5ML 125 MG in SODIUM CHL 0.9% 100 ML IV ONE (12:15)
[2020-07-07] MEDS ORDERED: MORPHINE SULF INJ 2 MG/ML SYRINGE 1ML IV PRN (12:15)
--- NOTE | 2020-07-07 12:15 | NUR ---
Patient stable with Dr. Clemons at bedside.
[2020-07-07] MEDS: D5W/LACTATED RINGERS 1,000 ML IV SCH (14:30)
--- NOTE | 2020-07-07 14:44 | NUR ---
Scheduled IV abx and po medications given per order. Patient resting comfortably in bed at this time.
--- NOTE | 2020-07-07 15:42 | NUR ---
assessment Patient is a 39 year old female who is alert and oriented. Prior to admission patient lived home with family and functioned with assistance. Per patient she will return home to her prior living arrangements post discharge and family will transport her home. Patient informed me her Prosper helps her when needed. Patient has no safety concerns regarding returning home on discharge. I will continue to monitor and follow up as appropriate for any post discharge needs. I informed patient she has a right to speak to a social security assessor regarding all care. I informed patient she has a right to participate in any and all discharge planning. Patient does not have a POA and advanced directive. I have offered patient information on POA and advanced directives. I informed the patient the advantages and benefits of having an Advanced Directive. Patient verbalized understanding and agreed to discharge plan. Addendum: 07/07/20 at 1544 by Kimberlee WHALEN Amended: Links added.
[2020-07-07 16:00] VITALS: BP 95/54
[2020-07-07] MEDS ORDERED: IOHEXOL 300 MG/ML 100ML BOTTLE IJ ONE (16:03)
--- NOTE | 2020-07-07 18:00 | NUR ---
Scheduled medication given per order. Patient resting comfortably in bed with no distress noted. Patient stable throughout shift.
[2020-07-07] MEDS: DOCUSATE SOD 100 MG CAP PO SCH (21:58)
[2020-07-07] MEDS: traMADol HCL 50 MG TAB PO PRN (21:59)
[2020-07-07 22:00] VITALS: BP 92/61
[2020-07-08 05:30] VITALS: BP 104/55
[2020-07-08 05:57] LABS: Hematocrit 20.1 % (36.0-46.0); Mean Corpuscular Hemoglobin 35.2 pg (28.0-32.0); Mean Corpuscular Hgb Conc. 32.1 g/dL (32.0-36.0); Mean Corpuscular Volume 109.6 fL (80.0-100.0); Platelet Count (auto) 389 10^3/uL (140-450); Red Blood Cells 1.83 10^6/uL (4.0-5.20); White Blood Cell 24.1 10^3/uL (4.4-10.8)
[2020-07-08] MEDS: Ensure HIGH Protein Chocolate 8oz Bottle PO SCH ×4 (06:07→21:42)
[2020-07-08] MEDS: PIPERACILLIN-TAZOB 3.375GM 100 ML IV SCH ×2 (06:07→14:06)
[2020-07-08] MEDS: D5W/LACTATED RINGERS 1,000 ML IV SCH (06:07)
[2020-07-08 06:08] LABS: Red Cell Distribution Width 25.1 % (11.8-14.3)
[2020-07-08] MEDS: GABAPENTIN 300 MG CAP PO SCH ×3 (06:08→21:42)
[2020-07-08 06:10] LABS: Hemoglobin 6.5 g/dL (12.2-16.2)
[2020-07-08 06:17] LABS: Albumin 1.5 g/dL (3.4-5.0); Calcium 7.3 mg/dL (8.5-10.1); Potassium 3.1 mmol/L (3.5-5.1)
[2020-07-08 06:20] LABS: BUN/Creatinine Ratio 10.6; Bilirubin, Total 4.4 mg/dL (0.2-1.0); Total Protein 6.5 g/dL (6.4-8.2)
[2020-07-08 07:08] LABS: Basophils % (manual) 0 (0.0-2.0); Blast Cells 0; Eosinophils % (manual) 0 (0-7); Metamyelocytes % 0; Promyelocytes % 0; Reactive Lymphocytes 0
[2020-07-08 07:17] LABS: Band Neutrophils % (manual) 4; Lymphocytes % (manual) 30 (10.0-50.0); Monocytes % (manual) 4 (0-12); Myelocytes % 1
--- NOTE | 2020-07-08 08:00 | NUR ---
OPENING SHIFT NOTE ASSUMED CARE OF PATIENT AWAKE AND ALERT. NO S/S OF DISTRESS NOTED OR COMPLAINTS OF PAIN. PATIENT UPDATED ON POC FOR THE DAY AND ALL QUESTIONS ANSWERED. BED IS IN LOWEST, LOCKED POSITION WITH SIDE RAILS UP X2 AND CALL LIGHT WITHIN REACH. WILL CONTINUE TO MONITOR Q1H AND PRN.
[2020-07-08 08:51] VITALS: BP 94/51
[2020-07-08] MEDS: THIAMINE HCL 100 MG TAB PO SCH (09:52)
[2020-07-08] MEDS: FOLIC ACID 1 MG TAB PO SCH (09:52)
[2020-07-08] MEDS: DOCUSATE SOD 100 MG CAP PO SCH ×2 (09:52→21:42)
[2020-07-08] MEDS: PANTOPRAZOLE 40 MG TAB PO SCH (09:52)
[2020-07-08] MEDS: PARoxetine 20 MG TAB PO SCH (09:52)
--- NOTE | 2020-07-08 11:54 | NUR ---
Nutrition Followup Note Wt: 70.3 kg Pt`s sleeping with no family by bedside. per records pt with septic shock on ABX. pt with no distress noted currently on regular diet with ensure HP qid with inadequate PO of 50% x 3 per RN doc Est Energy needs: 3713-3795 kcals (23-25 kcal/kgBW), Est Protein needs: 57-71 gms/day (1.0-1.3gm/kgBW r/t hypoalb). Will continue to monitor and reassess prn. Reassessed Labs: CA 7.3 L, YIFAN 4.4 H ALB 1.5 L, CA 7.3 L BM: Pt has no BM reported per Rn note Skin: BS 17 mod risk, full details in residential caregiver note PES: 1) Inadequate oral intake aeb ave 42% PO intake r/t pt with a poor appetite 2) Altered nutrition related lab values aeb hypocalcemia, hyperbilirubinemia, elev LFTs, severe hypoalbuminemia r/t current medical condition Comments: Will continue to monitor PO intake, skin status. F/u mod 3-5 days Rec: 1) If albumin continues trending down consider Prostat 1 pkt BID. 2) Continue current plan of care
[2020-07-08] MEDS ORDERED: POTASSIUM CHL 20 Meq TABLET PO ONE (12:00)
[2020-07-08] MEDS ORDERED: SODIUM FERR GLUC 62.5MG/5ML 125 MG in SODIUM CHL 0.9% 100 ML IV SCH (12:00)
[2020-07-08 13:00] VITALS: BP 104/56
[2020-07-08] MEDS ORDERED: MEROPENEM 1GM IVPB 100 ML IV ONE (16:15)
[2020-07-08 16:28] VITALS: BP 100/57
[2020-07-08] MEDS: MEROPENEM 1GM IVPB 100 ML IV SCH (21:41)
[2020-07-08] MEDS: traMADol HCL 50 MG TAB PO PRN (21:51)
[2020-07-08 22:00] VITALS: BP 98/53
[2020-07-09 05:00] VITALS: BP 109/58
[2020-07-09] MEDS: MEROPENEM 1GM IVPB 100 ML IV SCH ×3 (06:19→21:07)
[2020-07-09] MEDS: GABAPENTIN 300 MG CAP PO SCH ×3 (06:19→21:07)
[2020-07-09] MEDS: Ensure HIGH Protein Chocolate 8oz Bottle PO SCH ×4 (06:19→21:08)
[2020-07-09] MEDS: traMADol HCL 50 MG TAB PO PRN ×2 (06:20→13:11)
[2020-07-09 06:55] LABS: Red Blood Cells 1.85 10^6/uL (4.0-5.20)
[2020-07-09 06:58] LABS: Calcium 7.7 mg/dL (8.5-10.1); Potassium 3.2 mmol/L (3.5-5.1)
[2020-07-09 06:59] LABS: Hematocrit 20.7 % (36.0-46.0); Mean Corpuscular Hgb Conc. 31.3 g/dL (32.0-36.0); Mean Corpuscular Volume 111.8 fL (80.0-100.0); Platelet Count (auto) 310 10^3/uL (140-450); White Blood Cell 28.5 10^3/uL (4.4-10.8)
[2020-07-09 07:01] LABS: INR 1.77 (0.9-1.15); Partial Thromboplastin Time 53.2 sec (23.0-31.2)
[2020-07-09 07:02] LABS: BUN/Creatinine Ratio 9.3
[2020-07-09 07:05] LABS: % Iron Saturation 112.5 % (15-50)
[2020-07-09 07:35] LABS: Red Cell Distribution Width 24.5 % (11.8-14.3)
[2020-07-09 07:46] LABS: Hemoglobin 6.5 g/dL (12.2-16.2)
[2020-07-09 07:48] LABS: Basophils % (manual) 0 (0.0-2.0); Blast Cells 0; Promyelocytes % 0
--- NOTE | 2020-07-09 08:00 | NUR ---
Opening Shift Note Assumed care of patient, awake, alert and oriented X4. No S/S of distress/SOB or pain. Tele# [id number], sinus tachycardia @ 104 bpm. Left upper arm midline patent, saline locked, with dressing clean, dry and intact. Patient has a flat affect, but responds to questions appropriately. Instructed on POC and to call for assist PRN, verbalized understanding. Bed locked, in lowest position, call light within reach, will continue to monitor for changes Q1hr and PRN
[2020-07-09 09:04] VITALS: BP 104/59
[2020-07-09 09:11] LABS: Band Neutrophils % (manual) 8; Eosinophils % (manual) 1 (0-7); Lymphocytes % (manual) 14 (10.0-50.0); Metamyelocytes % 2; Monocytes % (manual) 5 (0-12); Myelocytes % 3; Reactive Lymphocytes 2
[2020-07-09] MEDS: SPIRONOLACTONE 25 MG TAB PO SCH (10:58)
[2020-07-09] MEDS: THIAMINE HCL 100 MG TAB PO SCH (10:59)
[2020-07-09] MEDS: PANTOPRAZOLE 40 MG TAB PO SCH (10:59)
[2020-07-09] MEDS: PARoxetine 20 MG TAB PO SCH (10:59)
[2020-07-09] MEDS: DOCUSATE SOD 100 MG CAP PO SCH ×2 (10:59→21:07)
--- NOTE | 2020-07-09 11:30 | NUR ---
ROUNDS Dr Janey Grande at bedside for rounds, new orders received and followed through. Patient updated on plan of care, verbalized understanding.
[2020-07-09] MEDS ORDERED: POTASSIUM CHL 20 Meq TABLET PO ONE (11:45)
--- NOTE | 2020-07-09 11:55 | NUR ---
WOUND CARE NOTE: PATIENT RECENTLY OBTAINED A SKIN TEAR TO EACH LOWER BUTTOCK AFTER USING BED LUNA. PATIENT HAS A 0.5 X 0.5 CM PARTIAL THICKNESS SKIN TEAR TO EACH LOWER BUTTOCK, WITH PINK WOUND BED, LIGHT RED PERIWOUND, SCANT SEROUS DRAINAGE. PATIENT HAS CURRENT KRISTIN SCORE OF 18. PATIENT CAN SELF TURN/REPOSITION SELF, AMBULATE WITH NO ASSISTANCE BY STAFF. RECOMMEND: BID APPLICATION WITH ZGUARD, OPTIFOAM GENTLE DRESSINGS TO COVER AN PROTECT, GENTLE USE OF BEDPAN, PATIENT UP ON COMMODE OR BATHROOM OVER BEDPAN USE. SKIN/WOUND CARE PLAN IMPLEMENTED. WOUND CARE TEAM WILL CONTINUE TO MONITOR. Addendum: 07/09/20 at 1717 by Vicenta Trevizo RN Amended: Links added.
[2020-07-09 12:33] VITALS: BP 92/66
[2020-07-09] MEDS: FOLIC ACID 1 MG in D5W 5% 50 ML INJ SCH (12:55)
[2020-07-09 16:43] VITALS: BP 92/57
--- NOTE | 2020-07-09 19:12 | NUR ---
Care endorsed to GLENDA Raman, night nurse.
--- NOTE | 2020-07-09 19:15 | NUR ---
Opening note Assumed care of patient, patient is alert and orientated x4. No sob or distress noted. Bed is locked in lowest position, Side rails up x2. Patient is laying in bed watching TV. spoke to patient regarding her urine output. Patient has not voided any urine since this morning per day shift report. Did an assessment on patient, bladder is non distended, no pain or uncomfortableness for patient. Performed a bladder scan patient has 375 ml in bladder. Will report to hospitalist. Will continue to monitor q1hr and PRN.
[2020-07-09] MEDS: ONDANSETRON HCL 4 MG/2 ML VIAL IV PRN (19:51)
--- NOTE | 2020-07-09 20:00 | NUR ---
Per patient last bowel movement was on 06/30 Spoke to patient regarding her bowel movement. Patient states last bowel movement was on 06/30. Patient is currently taking colace bid. Offered patient lactoluse scheduled Q6HR. Patient stated she does not want right now, maybe tomorrow she will want take it. Will continue to monitor patient q1hr and PRN.
--- NOTE | 2020-07-09 21:30 | NUR ---
Paged hospitalist Paged hospitalist regarding bladder scan 375 mls. patient is asymptomatic no bladder distention or complaints of pain. Will await call back, and continue to monitor patient.
--- NOTE | 2020-07-09 21:58 | NUR ---
Hospitalist paged back Hospitalist paged back and ordered a gaxiola to be inserted. Will carry out new orders, and continue to monitor patient.
[2020-07-09 22:00] VITALS: BP 103/51
--- NOTE | 2020-07-09 22:00 | NUR ---
Spoke to patient regarding gaxiola catheter Patient was asleep, Woke her up and explained that the doctor ordered a gaxiola catheter due to her lack of urine production, patient states "I want to sleep right now, lets do it in the morning." Educated patient on importance of a gaxiola catheter, Patient states she is not in pain, and states "her bladder is fine" Will retry again after she gets some rest. Patient shows no signs of distress and is asymptomatic. Will continue to monitor q1hr and PRN.
--- NOTE | 2020-07-10 00:56 | NUR ---
Repositioned patient Repositioned patient to right side, with a pillow to her left side. Offered patient the bedpan at this time. Patient states she has no need to use the bedpan right now. Answered more questions about possible insertion of Guthrie catheter. Patient says she will think about it some more. Patient does not want Guthrie at this time. Patient states no pain or discomfort in her blader. No bladder distention noted. No tenderness or swelling during palpation of bladder. Will continue to monitor.
--- NOTE | 2020-07-10 04:30 | NUR ---
Patient voided Patient informed about gaxiola catheter, patient stated she wanted to void using the bedpan. Put patient on the bed martinez. Patient voided 455 mls of dark yellow urine. No bladder distention noted. Patient tolerated well. Patient states she does not need or want a gaxiola at this time. Will let day shift RN know. Will continue to monitor.
--- NOTE | 2020-07-10 04:33 | NUR ---
Urine specimen collected Urine specimen collected and sent through bullet to Lab.
[2020-07-10 04:50] LABS: Urine Bacteria NONE SEEN /hpf (None Seen); Urine Blood TRACE /uL (Negative); Urine Specific Gravity 1.021 (1.001-1.035); Urine WBC 5 /hpf (0 - 5)
[2020-07-10 05:00] VITALS: BP 98/55
[2020-07-10] MEDS: Ensure HIGH Protein Chocolate 8oz Bottle PO SCH ×4 (06:07→21:59)
[2020-07-10] MEDS: MEROPENEM 1GM IVPB 100 ML IV SCH ×3 (06:07→22:04)
[2020-07-10] MEDS: GABAPENTIN 300 MG CAP PO SCH ×3 (06:08→22:04)
--- NOTE | 2020-07-10 07:18 | NUR ---
closing note endorsed care to day shift RN. no sob or distress noted.
[2020-07-10 07:22] LABS: Hematocrit 20.5 % (36.0-46.0); Mean Corpuscular Hemoglobin 35.3 pg (28.0-32.0); Mean Corpuscular Hgb Conc. 31.7 g/dL (32.0-36.0); Mean Corpuscular Volume 111.3 fL (80.0-100.0); Platelet Count (auto) 122 10^3/uL (140-450); Red Blood Cells 1.85 10^6/uL (4.0-5.20); White Blood Cell 29.4 10^3/uL (4.4-10.8)
[2020-07-10 07:29] LABS: Red Cell Distribution Width 23.2 % (11.8-14.3)
[2020-07-10 07:30] LABS: Hemoglobin 6.5 g/dL (12.2-16.2)
[2020-07-10 07:31] LABS: Basophils % (manual) 0 (0.0-2.0); Blast Cells 0; Promyelocytes % 0; Reactive Lymphocytes 0
--- NOTE | 2020-07-10 07:35 | NUR ---
Critical lab of HB 6.5. However, patient has been refusing blood in the past 3 days.
[2020-07-10 07:51] LABS: Potassium 3.5 mmol/L (3.5-5.1)
[2020-07-10 07:59] LABS: Albumin 1.3 g/dL (3.4-5.0); BUN/Creatinine Ratio 14.3; Bilirubin, Total 4.1 mg/dL (0.2-1.0); Calcium 7.6 mg/dL (8.5-10.1); Total Protein 6.4 g/dL (6.4-8.2)
[2020-07-10 08:12] LABS: Band Neutrophils % (manual) 1; Eosinophils % (manual) 1 (0-7); Lymphocytes % (manual) 21 (10.0-50.0); Metamyelocytes % 2; Monocytes % (manual) 3 (0-12); Myelocytes % 2
[2020-07-10 09:00] VITALS: BP 100/65
[2020-07-10] MEDS: SPIRONOLACTONE 25 MG TAB PO SCH (10:06)
[2020-07-10] MEDS: DOCUSATE SOD 100 MG CAP PO SCH ×2 (10:06→22:04)
[2020-07-10] MEDS: PANTOPRAZOLE 40 MG TAB PO SCH (10:06)
[2020-07-10] MEDS: PARoxetine 20 MG TAB PO SCH (10:07)
[2020-07-10] MEDS: THIAMINE HCL 100 MG TAB PO SCH (10:07)
[2020-07-10] MEDS: FOLIC ACID 1 MG in D5W 5% 50 ML INJ SCH (10:08)
[2020-07-10 13:00] VITALS: BP 106/62
[2020-07-10 17:00] VITALS: BP 102/65
--- NOTE | 2020-07-10 19:06 | NUR ---
Opening Shift Note Assumed care of patient after receiving report from GLENDA Walden. Patient is awake and alert with no S/S of distress/SOB or pain. Call light within reach, bed in lowest locked position x2 side rails, HOB semi fowlers. Instructed on POC and to call for assist PRN, will continue to monitor for changes Q1hr and PRN.
--- NOTE | 2020-07-10 22:00 | NUR ---
Ensure given to patient. Patient wanted it left on table and stated she would drink it later.
[2020-07-10 22:07] VITALS: BP 93/48
[2020-07-11 04:38] VITALS: BP 103/61
[2020-07-11] MEDS: GABAPENTIN 300 MG CAP PO SCH ×3 (05:51→21:33)
[2020-07-11] MEDS: MEROPENEM 1GM IVPB 100 ML IV SCH ×3 (05:51→21:33)
[2020-07-11] MEDS: Ensure HIGH Protein Chocolate 8oz Bottle PO SCH (06:12)
[2020-07-11 06:42] LABS: Basophils # (auto) 0.1 10 ^3/uL (0-0.2); Eosinophils # (auto) 0.1 10 ^3/uL (0-0.8)
[2020-07-11 06:45] LABS: Basophils % (auto) 0.5 % (0.0-2.0); Eosinophils % (auto) 0.5 % (0.0-7.0); Hematocrit 20.8 % (36.0-46.0); Lymphocytes # (auto) 4.5 10 ^3/uL (0.4-5.4); Lymphocytes % (auto) 20.4 % (10.0-50.0); Mean Corpuscular Hemoglobin 34.9 pg (28.0-32.0); Mean Corpuscular Hgb Conc. 31.4 g/dL (32.0-36.0); Mean Corpuscular Volume 111.1 fL (80.0-100.0); Monocytes # (auto) 1.9 10 ^3/uL (0-1.3); Monocytes % (auto) 8.3 % (0.0-12.0); Neutrophils # (auto) 15.7 10 ^3/uL (1.6-8.6); Neutrophils % (auto) 70.3 % (37.0-80.0); Nucleated Red Blood Cells % 0.1 %; Red Blood Cells 1.88 10^6/uL (4.0-5.20); White Blood Cell 22.3 10^3/uL (4.4-10.8)
[2020-07-11 06:57] LABS: Hemoglobin 6.6 g/dL (12.2-16.2)
[2020-07-11 07:01] LABS: Potassium 3.5 mmol/L (3.5-5.1)
--- NOTE | 2020-07-11 07:02 | NUR ---
Critical Hgb received from Katia from lab, Hgb now 6.6.
[2020-07-11 07:10] LABS: Albumin 1.3 g/dL (3.4-5.0); BUN/Creatinine Ratio 16.7; Bilirubin, Total 4.4 mg/dL (0.2-1.0); Calcium 7.6 mg/dL (8.5-10.1); Total Protein 6.7 g/dL (6.4-8.2)
[2020-07-11 08:47] LABS: Platelet Count (auto) 298 10^3/uL (140-450)
--- NOTE | 2020-07-11 08:49 | NUR ---
LAB CORRECTION FE FROM LAB CALLED, CORRECTED PLATELET DRAW, VERBALIZED TO USE BLUE TOP TUBE FOR PLATELET DRAW. CORRECT PLATELET COUNT 298
[2020-07-11 09:00] VITALS: BP 103/55
--- NOTE | 2020-07-11 09:25 | NUR ---
REASSESSED BP BP 103/55 HEART RATE 55 Addendum: 07/11/20 at 0957 by KAROLINA HUFFMAN RN HEART RATE 105
[2020-07-11] MEDS: PARoxetine 20 MG TAB PO SCH (09:35)
[2020-07-11] MEDS: DOCUSATE SOD 100 MG CAP PO SCH ×2 (09:35→21:34)
[2020-07-11] MEDS: THIAMINE HCL 100 MG TAB PO SCH (09:35)
[2020-07-11] MEDS: SPIRONOLACTONE 25 MG TAB PO SCH (09:35)
[2020-07-11] MEDS: PANTOPRAZOLE 40 MG TAB PO SCH (09:35)
[2020-07-11] MEDS: FOLIC ACID 1 MG in D5W 5% 50 ML INJ SCH (10:52)
[2020-07-11 11:55] VITALS: BP 100/59
--- NOTE | 2020-07-11 15:20 | NUR ---
Nutrition Followup Note Wt: 72.1 kg Pt`s sleeping with no family by bedside. Per records pt with septic shock on ABX. Pt with no distress noted currently on regular diet with ensure HP qid with inadequate PO of ave 14% x 8 per RN doc. Recommendation: If pt PO intake remains poor, consider supplemental nutrition support Vital AF 1.2 @ 60ml/hr goal rate as tolerated and per MD approval. Est Energy needs: 3914-5252 kcals (23-25 kcal/kgBW), Est Protein needs: 57-71 gms/day (1.0-1.3gm/kgBW r/t hypoalb). Will continue to monitor and reassess prn. Reassessed Labs: CA 7.6 L, YIFAN 4.4 H ALB 1.3 L, Gluc 64 L BM: Pt has no BM today per RN note Skin: BS 13 mod risk, full details in pet care worker note PES: 1) Inadequate oral intake aeb ave 42% PO intake r/t pt with a poor appetite 2) Altered nutrition related lab values aeb hypocalcemia, hyperbilirubinemia, elev LFTs, severe hypoalbuminemia r/t current medical condition Comments: Will continue to monitor PO intake, skin status. F/u mod 3-5 days Rec: 1) If albumin continues trending down consider Prostat 1 pkt BID. 2) Continue current plan of care
[2020-07-11 16:55] VITALS: BP 103/65
--- NOTE | 2020-07-11 19:30 | NUR ---
Opening Shift Note Assumed care of patient, awake and alert. No S/S of distress/SOB or pain. Instructed on POC and to call for assist PRN, will continue to monitor for changes Q1hr and PRN. Patient in the lowest possible position with call light within reach.
--- NOTE | 2020-07-11 19:52 | NUR ---
Patient had a bowel movement. Was cleaned and dressings to sacrum changed and patient was turned to her right side. Will continue to monitor patient.
[2020-07-11 22:00] VITALS: BP 100/55
[2020-07-12 05:00] VITALS: BP 98/67
[2020-07-12] MEDS: MEROPENEM 1GM IVPB 100 ML IV SCH (05:47)
[2020-07-12] MEDS: GABAPENTIN 300 MG CAP PO SCH ×3 (05:47→21:05)
[2020-07-12 06:20] LABS: Mean Corpuscular Hemoglobin 34.6 pg (28.0-32.0); Mean Corpuscular Hgb Conc. 31.4 g/dL (32.0-36.0); Mean Corpuscular Volume 110.5 fL (80.0-100.0); Monocytes # (auto) 1.3 10 ^3/uL (0-1.3); White Blood Cell 22.9 10^3/uL (4.4-10.8)
[2020-07-12 06:46] LABS: Potassium 3.6 mmol/L (3.5-5.1)
[2020-07-12 06:56] LABS: Albumin 1.2 g/dL (3.4-5.0); BUN/Creatinine Ratio 18.4; Bilirubin, Total 4.8 mg/dL (0.2-1.0); Calcium 7.8 mg/dL (8.5-10.1); Platelet Count (auto) 291 10^3/uL (140-450); Red Cell Distribution Width 20.9 % (11.8-14.3); Total Protein 6.4 g/dL (6.4-8.2)
[2020-07-12 06:57] LABS: Eosinophils % (auto) 0.1 % (0.0-7.0); Lymphocytes % (auto) 16.5 % (10.0-50.0); Monocytes % (auto) 6.7 % (0.0-12.0); Neutrophils % (auto) 75.7 % (37.0-80.0)
[2020-07-12 06:58] LABS: Basophils # (auto) 0.2 10 ^3/uL (0-0.2); Eosinophils # (auto) 0 10 ^3/uL (0-0.8); Lymphocytes # (auto) 3.1 10 ^3/uL (0.4-5.4)
[2020-07-12 07:01] LABS: Hemoglobin 6.6 g/dL (12.2-16.2)
[2020-07-12 08:00] VITALS: BP 100/43
--- NOTE | 2020-07-12 10:07 | NUR ---
BED BATH DONE NEW BEDDING APPLIED PATIENT TOLERATED WELL WILL CONTINUE TO MONITOR
[2020-07-12] MEDS: SPIRONOLACTONE 25 MG TAB PO SCH (10:21)
[2020-07-12] MEDS: THIAMINE HCL 100 MG TAB PO SCH (10:21)
[2020-07-12] MEDS: DOCUSATE SOD 100 MG CAP PO SCH ×2 (10:21→21:04)
[2020-07-12] MEDS: PANTOPRAZOLE 40 MG TAB PO SCH (10:22)
[2020-07-12] MEDS: PARoxetine 20 MG TAB PO SCH (10:22)
[2020-07-12] MEDS: FOLIC ACID 1 MG in D5W 5% 50 ML INJ SCH (10:47)
[2020-07-12 12:24] VITALS: BP 92/53
[2020-07-12] MEDS: metroNIDAZOLE 500 MG TAB PO SCH ×2 (14:12→21:05)
[2020-07-12 17:24] VITALS: BP 97/58
[2020-07-12] MEDS: FERROUS SULFATE 325 MG TAB PO SCH (18:31)
[2020-07-12 22:00] VITALS: BP 98/61
[2020-07-13 05:00] VITALS: BP 95/54
[2020-07-13] MEDS: GABAPENTIN 300 MG CAP PO SCH ×3 (05:35→22:15)
[2020-07-13] MEDS: metroNIDAZOLE 500 MG TAB PO SCH ×3 (05:35→22:15)
[2020-07-13 06:01] LABS: Basophils # (auto) 0.2 10 ^3/uL (0-0.2); Basophils % (auto) 0.7 % (0.0-2.0); Eosinophils # (auto) 0.1 10 ^3/uL (0-0.8); Eosinophils % (auto) 0.4 % (0.0-7.0); Neutrophils # (auto) 18.9 10 ^3/uL (1.6-8.6)
[2020-07-13 06:04] LABS: Lymphocytes # (auto) 4.3 10 ^3/uL (0.4-5.4); Lymphocytes % (auto) 17.2 % (10.0-50.0); Mean Corpuscular Hemoglobin 34.7 pg (28.0-32.0); Mean Corpuscular Hgb Conc. 31.3 g/dL (32.0-36.0); Monocytes # (auto) 1.6 10 ^3/uL (0-1.3); Monocytes % (auto) 6.2 % (0.0-12.0); Neutrophils % (auto) 75.5 % (37.0-80.0); Nucleated Red Blood Cells % 0.1 %; Platelet Count (auto) 74 10^3/uL (140-450); White Blood Cell 25.1 10^3/uL (4.4-10.8)
[2020-07-13 06:13] LABS: Red Cell Distribution Width 20.3 % (11.8-14.3)
[2020-07-13 06:16] LABS: Hemoglobin 6.2 g/dL (12.2-16.2)
--- NOTE | 2020-07-13 06:21 | NUR ---
Critical Lab Value Lab notified that patient's hemoglobin is now 6.2. Zaheer hospitalist at this time. Addendum: 07/13/20 at 0631 by ANGELES ELENA RN RN Spoke to hospitalist and made aware of critical lab value at this time.
--- NOTE | 2020-07-13 08:00 | NUR ---
Opening Shift Note Assumed care of patient, awake, alert and sitting in a high-fowlers position eating breakfast upon entering the room. No S/S of distress/SOB or pain. Patient presents lethargic with a flat affect. Sclera's are yellow and skin is warm and dry to the touch. Bruising noted on the abdomen. Patient states that the markings "were not there before", pain noted on the left side upon palpation. Non-pitting edema noted bilaterally on the feet. Patient instructed on POC and to call for assist PRN. Patient verbalized understanding. Bed is in lowest position and the call light is within reach. Will continue to monitor for changes Q1hr and PRN.
[2020-07-13] MEDS: FERROUS SULFATE 325 MG TAB PO SCH ×2 (08:05→18:53)
[2020-07-13 09:00] VITALS: BP 100/51
[2020-07-13] MEDS: PANTOPRAZOLE 40 MG TAB PO SCH (09:52)
[2020-07-13] MEDS: levoFLOXacin 500 MG TAB PO SCH (09:52)
[2020-07-13] MEDS: PARoxetine 20 MG TAB PO SCH (09:52)
[2020-07-13] MEDS: FOLIC ACID 1 MG TAB PO SCH (09:52)
[2020-07-13] MEDS: SPIRONOLACTONE 25 MG TAB PO SCH (09:52)
[2020-07-13] MEDS: DOCUSATE SOD 100 MG CAP PO SCH ×2 (09:52→22:14)
[2020-07-13] MEDS: THIAMINE HCL 100 MG TAB PO SCH (09:53)
[2020-07-13] MEDS ORDERED: FLUCONAZOLE 100 MG TAB PO ONE (11:15)
--- NOTE | 2020-07-13 11:15 | NUR ---
Dr. Clemons at bedside Dr. Clemons at bedside discussing the plan of care with the patient. Doctor encouraged the patient to work with PT and advised that if she was unable to walk he would have to send her to a rehab facility. Patient verbalized understanding. Doctor reported he would call the to update him on the patient's status. Will continue to monitor.
--- NOTE | 2020-07-13 11:30 | NUR ---
Tele Box Sent to ICU
[2020-07-13 12:23] LABS: Hematocrit 20.3 % (36.0-46.0); Mean Corpuscular Hgb Conc. 30.3 g/dL (32.0-36.0)
[2020-07-13 12:25] LABS: Mean Corpuscular Hemoglobin 33.8 pg (28.0-32.0); Mean Corpuscular Volume 111.3 fL (80.0-100.0); Red Blood Cells 1.82 10^6/uL (4.0-5.20)
[2020-07-13 12:26] LABS: Red Cell Distribution Width 20.7 % (11.8-14.3)
[2020-07-13 12:30] LABS: Platelet Count (auto) 215 10^3/uL (140-450)
[2020-07-13 12:32] LABS: White Blood Cell 25.9 10^3/uL (4.4-10.8)
[2020-07-13 12:36] LABS: Basophils % (manual) 0 (0.0-2.0); Blast Cells 0; Eosinophils % (manual) 0 (0-7); Hemoglobin 6.2 g/dL (12.2-16.2); Metamyelocytes % 0; Myelocytes % 0; Promyelocytes % 0; Reactive Lymphocytes 0
[2020-07-13 13:00] VITALS: BP 101/65
[2020-07-13 13:18] LABS: Band Neutrophils % (manual) 6; Lymphocytes % (manual) 11 (10.0-50.0); Monocytes % (manual) 2 (0-12)
--- NOTE | 2020-07-13 14:34 | NUR ---
Pt would benefit from discharge home with FWW, 3-in-1 commode and home health PT upon discharge from hospital.
--- NOTE | 2020-07-13 15:28 | NUR ---
RE-ASSESSMENT Per consult DC planning. Patient has informed me she has been depressed. Patient informed me she was depressed about her weight so she had a gastric bypass. After the surgery she started having complications and has had medical problems since. Patient stated that all her medical problems is affecting her quality of life and that makes her depressed. i have given patient some therapy exercises for depression. I have provided patient with a list of local therapist. Patient has agreed to see a therapist on discharge. Patient wants to return home with her family on discharge. Patient verbalized understanding and agreed to discharge plan home. Addendum: 07/13/20 at 1534 by Kimberlee Nuñez Amended: Links added.
[2020-07-13 16:41] VITALS: BP 99/46
[2020-07-13] MEDS: Pro-Stat SF 30ml Vanilla PO SCH (18:00)
--- NOTE | 2020-07-13 19:20 | NUR ---
Opening Shift Note Assumed care of patient, awake, alert and sitting in a high-fowlers position. No S/S of distress/SOB or pain. Patient presents lethargic with a flat affect. Patient instructed on POC and to call for assist PRN. Patient verbalized understanding. Bed locked in lowest position and the call light is within reach. Will continue to monitor for changes Q1hr and PRN.
[2020-07-13 21:54] VITALS: BP 88/57
[2020-07-14] MEDS: metroNIDAZOLE 500 MG TAB PO SCH ×3 (05:36→21:43)
[2020-07-14] MEDS: GABAPENTIN 300 MG CAP PO SCH ×3 (05:37→21:42)
[2020-07-14 06:24] LABS: Basophils % (auto) 0.6 % (0.0-2.0)
[2020-07-14 06:27] LABS: Basophils # (auto) 0.1 10 ^3/uL (0-0.2); Eosinophils # (auto) 0.1 10 ^3/uL (0-0.8); Eosinophils % (auto) 0.2 % (0.0-7.0); Hematocrit 19.1 % (36.0-46.0); Lymphocytes # (auto) 4.1 10 ^3/uL (0.4-5.4); Lymphocytes % (auto) 15.5 % (10.0-50.0); Monocytes # (auto) 1.1 10 ^3/uL (0-1.3); Monocytes % (auto) 4.1 % (0.0-12.0); Neutrophils # (auto) 20.9 10 ^3/uL (1.6-8.6); Neutrophils % (auto) 79.6 % (37.0-80.0); Red Blood Cells 1.71 10^6/uL (4.0-5.20)
[2020-07-14 07:19] LABS: White Blood Cell 23.9 10^3/uL (4.4-10.8)
[2020-07-14 07:20] LABS: Platelet Count (auto) 237 10^3/uL (140-450)
[2020-07-14 07:23] LABS: Mean Corpuscular Hemoglobin 34.2 pg (28.0-32.0); Mean Corpuscular Hgb Conc. 31.4 g/dL (32.0-36.0); Mean Corpuscular Volume 108.7 fL (80.0-100.0)
--- NOTE | 2020-07-14 07:35 | NUR ---
Opening Shift Note Assumed care of patient. Patient resting comfortably, woken for morning assessment. No S/S of distress/SOB or pain. Patient positioned on her right side. Sacrum Optifoam in place with minimal drainage noted. Patient positioned in high lomeli's position to eat breakfast. Instructed on POC and to call for assist PRN. Patient verbalized understanding. Bed is in lowest position and the call light is within reach of the patient. Will continue to monitor for changes Q1hr and PRN.
[2020-07-14] MEDS: Pro-Stat SF 30ml Vanilla PO SCH ×2 (08:00→18:00)
[2020-07-14] MEDS: FERROUS SULFATE 325 MG TAB PO SCH ×2 (08:01→17:41)
[2020-07-14] MEDS: PARoxetine 20 MG TAB PO SCH (10:01)
[2020-07-14] MEDS: SPIRONOLACTONE 25 MG TAB PO SCH (10:02)
[2020-07-14] MEDS: levoFLOXacin 500 MG TAB PO SCH (10:02)
[2020-07-14] MEDS: PANTOPRAZOLE 40 MG TAB PO SCH (10:02)
[2020-07-14] MEDS: DOCUSATE SOD 100 MG CAP PO SCH ×2 (10:02→21:42)
[2020-07-14] MEDS: FOLIC ACID 1 MG TAB PO SCH (10:02)
[2020-07-14] MEDS: FLUCONAZOLE 100 MG TAB PO SCH (10:02)
[2020-07-14] MEDS: THIAMINE HCL 100 MG TAB PO SCH (10:03)
--- NOTE | 2020-07-14 12:03 | NUR ---
Nutrition Followup Note Wt: 70.3 kg Pt`s sleeping with no family by bedside. Per records pt with septic shock on ABX. Pt with no distress noted currently on regular diet with ensure HP qid with improved but inadequate PO of ave 42% x6 per RN doc. Refer to nutrition recommendations noted below under Comments. Est Energy needs: 3227-5908 kcals (23-25 kcal/kgBW), Est Protein needs: 57-71 gms/day (1.0-1.3gm/kgBW r/t hypoalb). Will continue to monitor and reassess prn. Reassessed Labs: CA 7.8 L, ALB 1.2 L, Gluc 65 L BM: Pt has no BM today per RN note Skin: BS 14 mod risk, full details in respiratory care program director note PES: 1) Inadequate oral intake aeb ave 42% PO intake r/t pt with a poor appetite 2) Altered nutrition related lab values aeb hypocalcemia, hyperbilirubinemia, elev LFTs, severe hypoalbuminemia r/t current medical condition Comments: Will continue to monitor PO intake, skin status. F/u mod 3-5 days Rec: 1) If albumin continues trending down consider Prostat 1 pkt BID. 2) If pt PO intake remains poor, consider supplemental nutrition support Vital AF 1.2 @ 60ml/hr goal rate as tolerated and per MD approval. 3) Continue current plan of care
--- NOTE | 2020-07-14 12:25 | NUR ---
Dr. Clemons at bedside Dr. Clemons at bedside discussing the POC with the patient. Doctor requesting to give transfusion. Patient refused treatment. Patient questioned on living conditions and her plan for discharge. Patient response is minimal. Patient appears lethargic and weak. Educated on social service assistance and that contact would be made with her regarding her POC. Patient verbalized understanding. Will continue to monitor.
[2020-07-14 13:00] VITALS: BP 107/56
--- NOTE | 2020-07-14 14:30 | NUR ---
Bladder scan Patient reported she had not voided since yesterday morning. 367ml noted by the bladder scanner. Straight catheter was inserted using sterile technique to evacuate the bladder with 300ml of dark brown urine removed. Patient tolerated the procedure well. Pallavi care was also performed at this time. Small skin tears noted on the inner portions of the thigh during skin care. Cream was applied and pictures will be documented.
--- NOTE | 2020-07-14 15:08 | NUR ---
Spoke with patient's Spoke with patient's regarding a note of the patient's hospital stay for a court date dismissal. Requesting proof of length of stay and doctors reason for keeping her admitted. Spoke with Dr. Clemons and he sated will be able to write a note tomorrow morning. Will endorse to second shift supervisor.
--- NOTE | 2020-07-14 15:22 | NUR ---
D/C Planning Per social service consult for walker and bedside commode. Faxed clinical information to [facility] requesting for walker and bedside commode to be deliver to bedside. Per Clementine with [facility] medical equipment will be deliver between 3:30-6:00pm.
[2020-07-14 17:17] VITALS: BP 102/50
[2020-07-14 22:00] VITALS: BP 89/45
[2020-07-15 05:00] VITALS: BP 98/48
[2020-07-15] MEDS: GABAPENTIN 300 MG CAP PO SCH ×3 (05:55→22:10)
[2020-07-15] MEDS: metroNIDAZOLE 500 MG TAB PO SCH (05:55)
--- NOTE | 2020-07-15 05:55 | NUR ---
Called/paged Cory METAL FURNACE OPERATOR called re bladder scan 258. Waiting for call back. Continue care.
[2020-07-15 05:59] LABS: Basophils # (auto) 0.1 10 ^3/uL (0-0.2); Hematocrit 18.4 % (36.0-46.0)
[2020-07-15 06:01] LABS: Basophils % (auto) 0.3 % (0.0-2.0); Eosinophils # (auto) 0.1 10 ^3/uL (0-0.8); Eosinophils % (auto) 0.3 % (0.0-7.0); Lymphocytes # (auto) 3.8 10 ^3/uL (0.4-5.4); Lymphocytes % (auto) 15.1 % (10.0-50.0); Mean Corpuscular Hemoglobin 34.7 pg (28.0-32.0); Mean Corpuscular Hgb Conc. 30.8 g/dL (32.0-36.0); Mean Corpuscular Volume 112.4 fL (80.0-100.0); Monocytes # (auto) 0.9 10 ^3/uL (0-1.3); Monocytes % (auto) 3.7 % (0.0-12.0); Neutrophils # (auto) 20.4 10 ^3/uL (1.6-8.6); Neutrophils % (auto) 80.6 % (37.0-80.0); Platelet Count (auto) 135 10^3/uL (140-450); Red Blood Cells 1.63 10^6/uL (4.0-5.20); White Blood Cell 25.3 10^3/uL (4.4-10.8)
[2020-07-15 06:11] LABS: Red Cell Distribution Width 20.5 % (11.8-14.3)
[2020-07-15 06:13] LABS: Hemoglobin 5.7 g/dL (12.2-16.2)
[2020-07-15 09:00] VITALS: BP 98/49
[2020-07-15] MEDS: DOCUSATE SOD 100 MG CAP PO SCH ×2 (09:01→22:09)
[2020-07-15] MEDS: FERROUS SULFATE 325 MG TAB PO SCH (09:02)
[2020-07-15] MEDS: FOLIC ACID 1 MG TAB PO SCH (09:03)
[2020-07-15] MEDS: FLUCONAZOLE 100 MG TAB PO SCH (09:04)
[2020-07-15] MEDS: levoFLOXacin 500 MG TAB PO SCH (09:04)
[2020-07-15] MEDS: PANTOPRAZOLE 40 MG TAB PO SCH (09:05)
[2020-07-15] MEDS: THIAMINE HCL 100 MG TAB PO SCH (09:05)
[2020-07-15] MEDS: PARoxetine 20 MG TAB PO SCH (09:05)
[2020-07-15] MEDS: Pro-Stat SF 30ml Vanilla PO SCH ×2 (09:06→18:00)
--- NOTE | 2020-07-15 10:35 | NUR ---
ROUNDING Dr Kaci rosales on patient. Verified ok to administer spirolactone.
[2020-07-15] MEDS ORDERED: PIPERACILLIN-TAZOB 3.375GM 100 ML IV ONE (10:45)
[2020-07-15] MEDS: SPIRONOLACTONE 25 MG TAB PO SCH (10:45)
[2020-07-15] MEDS ORDERED: SODIUM FERR GLUC 62.5MG/5ML 125 MG in SODIUM CHL 0.9% 100 ML IV ONE (10:45)
[2020-07-15] MEDS ORDERED: PANTOPRAZOLE 40 MG/10 ML VIAL INJ IV ONE (10:45)
[2020-07-15] MEDS: ONDANSETRON HCL 4 MG/2 ML VIAL IV PRN (10:52)
--- NOTE | 2020-07-15 11:11 | NUR ---
Order read back to discontinue midline, start peripheral line. Orders will be carried out. Dr Clemons called patient's and updated as requested by patient.
--- NOTE | 2020-07-15 11:15 | NUR ---
Unable to obtain IV access. Will call charge nurse or have fellow staff member attempt. Medications will be administer once IV inserted.
[2020-07-15 13:00] VITALS: BP 94/43
[2020-07-15] MEDS: PIPERACILLIN-TAZOB 3.375GM 100 ML IV SCH ×2 (14:00→22:30)
--- NOTE | 2020-07-15 14:00 | NUR ---
Call again placed to chargeback specialist to assist in obtaining IV access. Still unable to administer medications at this time.
--- NOTE | 2020-07-15 16:00 | NUR ---
MD PAGED Patient denies voiding through out shift. Unable to collect UA at this time. Patient reports at home she only void 2-3x per day. Bladder scan completed showing <200 ml. Call placed to Dr Clemons and updated. Per MD, labs will be followed up in morning to check kidney function.
[2020-07-15 17:09] VITALS: BP 94/58
[2020-07-15] MEDS: SODIUM FERR GLUC 62.5MG/5ML 125 MG in SODIUM CHL 0.9% 100 ML IV SCH (20:49)
[2020-07-15 22:00] VITALS: BP 98/53
[2020-07-16 03:38] LABS: Urine Amorphous Crystal FEW /hpf (None Seen); Urine Bacteria MANY /hpf (None Seen); Urine Blood 3+ /uL (Negative); Urine Hyaline Cast MOD /lpf (0 - 2); Urine Mucus FEW (None Seen); Urine Specific Gravity 1.028 (1.001-1.035); Urine WBC 44 /hpf (0 - 5); Urine WBC Clumps PRESENT /hpf (None Seen)
[2020-07-16 05:00] VITALS: BP 92/47
[2020-07-16] MEDS: PIPERACILLIN-TAZOB 3.375GM 100 ML IV SCH (05:50)
[2020-07-16] MEDS: GABAPENTIN 300 MG CAP PO SCH (05:50)
[2020-07-16 05:51] LABS: Basophils # (auto) 0.1 10 ^3/uL (0-0.2); Eosinophils # (auto) 0.1 10 ^3/uL (0-0.8); Hematocrit 19.1 % (36.0-46.0); Neutrophils # (auto) 19.2 10 ^3/uL (1.6-8.6); Nucleated Red Blood Cells % 0.1 %
[2020-07-16 06:01] LABS: Basophils % (auto) 0.6 % (0.0-2.0); Eosinophils % (auto) 0.5 % (0.0-7.0); Lymphocytes # (auto) 4.2 10 ^3/uL (0.4-5.4); Lymphocytes % (auto) 16.5 % (10.0-50.0); Mean Corpuscular Hgb Conc. 30.4 g/dL (32.0-36.0); Mean Corpuscular Volume 115.3 fL (80.0-100.0); Monocytes # (auto) 1.6 10 ^3/uL (0-1.3); Monocytes % (auto) 6.3 % (0.0-12.0); Neutrophils % (auto) 76.1 % (37.0-80.0); Red Blood Cells 1.66 10^6/uL (4.0-5.20); White Blood Cell 25.2 10^3/uL (4.4-10.8)
[2020-07-16 06:08] LABS: Platelet Count (auto) 239 10^3/uL (140-450)
[2020-07-16 06:09] LABS: Hemoglobin 5.8 g/dL (12.2-16.2)
[2020-07-16 06:14] LABS: Potassium 3.4 mmol/L (3.5-5.1)
[2020-07-16 06:26] LABS: Albumin 1.2 g/dL (3.4-5.0); BUN/Creatinine Ratio 15.9; Calcium 7.4 mg/dL (8.5-10.1); Total Protein 6.5 g/dL (6.4-8.2)
--- NOTE | 2020-07-16 07:30 | NUR ---
Opening Shift Note Assumed care of patient, awake and alert. No S/S of distress/SOB or pain. Instructed on POC and to call for assist PRN, will continue to monitor for changes Q1hr and PRN. Bed is locked and in lowest position. Call light within reach.
[2020-07-16] MEDS: Pro-Stat SF 30ml Vanilla PO SCH ×2 (08:00→18:00)
[2020-07-16 09:00] VITALS: BP 87/43
[2020-07-16] MEDS: THIAMINE HCL 100 MG TAB PO SCH (09:54)
[2020-07-16] MEDS: DOCUSATE SOD 100 MG CAP PO SCH ×2 (09:54→21:45)
[2020-07-16] MEDS: SPIRONOLACTONE 25 MG TAB PO SCH (09:55)
[2020-07-16] MEDS: PARoxetine 20 MG TAB PO SCH (09:55)
[2020-07-16] MEDS: FLUCONAZOLE 100 MG TAB PO SCH (09:55)
[2020-07-16] MEDS ORDERED: PANTOPRAZOLE 40 MG/10 ML VIAL INJ IV SCH (10:00)
[2020-07-16] MEDS ORDERED: PPN PER PHARMACY 0 ML IV SCH (11:30)
[2020-07-16] MEDS ORDERED: MEROPENEM 1GM IVPB 100 ML IV ONE (11:30)
[2020-07-16 12:15] LABS: Magnesium 2.1 mg/dL (1.6-2.6); Phosphorus 1.1 mg/dL (2.5-4.90)
[2020-07-16 12:19] LABS: Pre Albumin < 3.0 mg/dL (20.0-40.0); Triglycerides 219 mg/dL (< 150)
[2020-07-16] MEDS: SODIUM FERR GLUC 62.5MG/5ML 125 MG in SODIUM CHL 0.9% 100 ML IV SCH (12:33)
[2020-07-16 13:00] VITALS: BP 90/47
[2020-07-16] MEDS ORDERED: POTASSIUM PHOSPHATE 44 MEQ in D5W 5% 250 ML IV ONE (14:00)
[2020-07-16] MEDS: FOLIC ACID 1 MG TAB PO SCH (15:16)
--- NOTE | 2020-07-16 15:57 | NUR ---
WOUND CARE NOTE: Wound care in to see patient for reevaluation of wounds. Patient continue resting in bed in Rm. 272B. Patient is awake, alert and oriented. She's in no stated pain at this time and she appears to be in no pain using Layton Nixon Faces Pain Scale. She's able to assist in turning and repositioning however bedside nurse reported that lately she noticed "patient is withdrawn and refused turning". Skin/wound assessment done with the assistance of patient's nurse, GLENDA Bruce. Patient's Rt. buttocks and bilateral posterior thighs display multi open partial thickness skin tear. Skin tears are red, no drainage/odor noted. Cleansed wounds, new photograph taken and changed the dressing as ordered. All wound stats can be found in nurse intervention wound assessment part. Repositioned patient for comfort facing her Rt. side, redistributed pressure points with pillows. Patient tolerated well. GLENDA Bruce at bedside. RECOMMENDATION: Continuation of all wound care orders MD prescribed,continue with skin/wound plan of care, continue monitoring by wound care while patient is hospitalized. Addendum: 07/16/20 at 1745 by Ally Powell RN Amended: Links added.
[2020-07-16 17:00] VITALS: BP 115/57
[2020-07-16 17:14] LABS: INR 2.51 (0.9-1.15); Partial Thromboplastin Time 61.8 sec (23.0-31.2)
--- NOTE | 2020-07-16 17:30 | NUR ---
PICC LINE PHONE CALL RECEIVED FROM PICC LINE RN STATING INR OF 2.[address] PICC LINE[address] PATIENT WILL BE CONTINUED TO BE MONITORED. MD WILL BE NOTIFIED.
[2020-07-16] MEDS: SUCRALFATE 1 GM/10 ML ORAL SUSP PO SCH ×2 (19:02→21:43)
[2020-07-16] MEDS ORDERED: PPN PER PHARMACY IV NR ×8 (20:00)
[2020-07-16] MEDS: ALBUMIN 25% 50 ML IV SCH (20:50)
[2020-07-16] MEDS: MEROPENEM 1GM IVPB 100 ML IV SCH (20:50)
[2020-07-16] MEDS: PANTOPRAZOLE 40 MG/10 ML VIAL INJ IV SCH (21:44)
[2020-07-16 22:00] VITALS: BP 85/46
[2020-07-17] MEDS: ALBUMIN 25% 50 ML IV SCH ×2 (02:13→12:40)
[2020-07-17] MEDS: MEROPENEM 1GM IVPB 100 ML IV SCH ×3 (04:07→19:35)
[2020-07-17 05:00] VITALS: BP 100/58
[2020-07-17] MEDS: SUCRALFATE 1 GM/10 ML ORAL SUSP PO SCH ×4 (06:43→21:05)
--- NOTE | 2020-07-17 07:30 | NUR ---
Opening Shift Note Assumed care of patient, awake and alert. Patient stated chest tightness and IV site discomfort. Patient has PPN running at IV site. IV site assessed no sign of swelling or redness. Patient has Latex allergy. PPN stopped, pharmacy notified. Will notify MD of patients complains and will continue to monitor. Patient placed on 2L NC. Instructed on POC and to call for assist PRN, will continue to monitor for changes Q1hr and PRN. Bed is locked and in lowest position. Call light within reach.
[2020-07-17] MEDS: Pro-Stat SF 30ml Vanilla PO SCH ×2 (08:00→17:46)
--- NOTE | 2020-07-17 08:35 | NUR ---
PATIENT STATED SHE WAS HAVING CHEST TIGHTNESS AND IV SITE DISCOMFORT FOR PPN SITE. PATIENT ON 2L NC FOR CHEST TIGHTNESS. PATIENT DENIES ANY SOB OR CHEST PAIN. PATIENT STATES THE DISCOMFORTS FEEL SIMILAR TO LATEX ALLERGY. CONTACTED PHARMACY REGARDING STOPPING PPN DUE TO LATEX ALLERGY CONCERN. PHARMACIST WILL CONTACT COMPANY TO SEE IF THERE IS A BAG AVAILABLE WITHOUT LATEX. WILL NOTIFY MD OF PATIENTS COMPLAINS AND STOPPING PPN FOR PATIENT ALLERGY SAFETY. WILL CONTINUE TO MONITOR.
[2020-07-17 09:17] VITALS: BP 91/52
[2020-07-17] MEDS: DOCUSATE SOD 100 MG CAP PO SCH ×2 (10:00→21:05)
[2020-07-17 10:36] LABS: Potassium 3.7 mmol/L (3.5-5.1)
[2020-07-17 10:37] LABS: Basophils # (auto) 0.2 10 ^3/uL (0-0.2); Basophils % (auto) 0.8 % (0.0-2.0); Eosinophils # (auto) 0.1 10 ^3/uL (0-0.8); Eosinophils % (auto) 0.3 % (0.0-7.0); Hematocrit 20.2 % (36.0-46.0); Lymphocytes # (auto) 3.2 10 ^3/uL (0.4-5.4); Lymphocytes % (auto) 15.1 % (10.0-50.0); Mean Corpuscular Hgb Conc. 30.6 g/dL (32.0-36.0); Mean Corpuscular Volume 111.2 fL (80.0-100.0); Monocytes # (auto) 1.4 10 ^3/uL (0-1.3); Monocytes % (auto) 6.6 % (0.0-12.0); Neutrophils # (auto) 16.3 10 ^3/uL (1.6-8.6); Neutrophils % (auto) 77.2 % (37.0-80.0); Nucleated Red Blood Cells % 0.1 %; Platelet Count (auto) 183 10^3/uL (140-450); Red Blood Cells 1.81 10^6/uL (4.0-5.20); White Blood Cell 21.1 10^3/uL (4.4-10.8)
[2020-07-17 10:44] LABS: Albumin 1.6 g/dL (3.4-5.0); BUN/Creatinine Ratio 12.3; Bilirubin, Total 4.5 mg/dL (0.2-1.0); Calcium 7.5 mg/dL (8.5-10.1); Magnesium 2.2 mg/dL (1.6-2.6); Phosphorus 2.1 mg/dL (2.5-4.90)
[2020-07-17 10:45] LABS: Hemoglobin 6.2 g/dL (12.2-16.2); Red Cell Distribution Width 21.2 % (11.8-14.3)
[2020-07-17] MEDS ORDERED: ALBUMIN 25% 50 ML IV SCH (11:00)
[2020-07-17] MEDS: THIAMINE HCL 100 MG TAB PO SCH (11:06)
[2020-07-17] MEDS: FOLIC ACID 1 MG TAB PO SCH (11:11)
[2020-07-17] MEDS: PARoxetine 20 MG TAB PO SCH (11:13)
[2020-07-17] MEDS: SPIRONOLACTONE 25 MG TAB PO SCH (11:15)
[2020-07-17] MEDS: PANTOPRAZOLE 40 MG/10 ML VIAL INJ IV SCH ×2 (11:18→21:05)
--- NOTE | 2020-07-17 12:03 | NUR ---
Midline Placement: Patient educated on need for midline placement. All risks and benefits explained and all questions and concerns addresses prior to procedure. 4Fr 20cm midline inserted via right basilic vein using Ultrasound. Sterile technique utilized. Blood return obtained from the single umen and flushed easily with NS using proper technique. Midline secured with saline lock; biodisc and occlusive dressing applied. Primary RN notified. Midline lot #[id number]. Internal length 20cm External length 0cm
[2020-07-17 12:38] VITALS: BP 98/46
[2020-07-17] MEDS: ONDANSETRON HCL 4 MG/2 ML VIAL IV PRN (12:57)
--- NOTE | 2020-07-17 13:00 | NUR ---
PPN [facility] PHARMACIST CALLED REGARDING PPN AND LATEX ALLERGY. [facility] STATED THERE IS NO LATEX BASED ON MANUFACTURES ON PPN BAG AND IV LINE. PHARMACIST [facility] WILL SEND NEW PPN LINE AND PATIENT WILL BE PLACED IN PPN.
[2020-07-17] MEDS ORDERED: DEXTROSE (50%) 50ML SYRG IV SCH (13:15)
--- NOTE | 2020-07-17 13:30 | NUR ---
PPN PLACED PATIENT ON PPN BASED ON PHARMACY PROTOCOL. PLACED NEW LINE FOR PPN. PPN PLACED IN RIGHT UPPER ARM MIDLINE. PATIENT MONITORED FOR LATEX ALLERGY AND COMPLAINS OF DISCOMFORT WHILE ON PPN. PATIENT DENIED ANY SOB, CHEST TIGHTNESS, RASH OR PAIN AT MIDLINE SITE. WILL CONTINUE TO MONITOR PATIENT.
--- NOTE | 2020-07-17 13:50 | NUR ---
AIR MATTRESS: Air mattress ordered at [place] [facility],LASHONDA 1946, Reference# [id number]. Call [facility] at [phone] if needed to follow up Addendum: 07/17/20 at 1352 by Ally Powell RN Amended: Links added.
[2020-07-17] MEDS: SODIUM FERR GLUC 62.5MG/5ML 125 MG in SODIUM CHL 0.9% 100 ML IV SCH (13:54)
--- NOTE | 2020-07-17 14:13 | NUR ---
Nutrition Followup Note Wt: 73.4 kg Pt was alert and oriented at time of rounds. Pt reports appetite is ok, reports nausea and vomiting. Pt is with a regular diet with 58% po intake / per RN note. Pt was with inadequate po intake per MD note which is why pt was receiving TPN. Last TPN order was 62ml/hr providing 756 kcal and 70g protein, 576 NPCs. TPN is on hold d/t to pt with a possible allergic reaction d/t latex allergy. Est Energy needs: 9118-5896 kcals (23-25 kcal/kgBW), Est Protein needs: 57-71 gms/day (1.0-1.3gm/kgBW r/t hypoalb). Will continue to monitor and reassess prn. Reassessed Labs: GLUC 73L, Alb 1.2L, T Bili 5.0H, Ca 7.4L BM: Pt with 5 BMs today per RN note Skin: BS 13 mod risk, full details in floor care technician note PES: 1) Inadequate oral intake aeb ave 42% PO intake r/t pt with a poor appetite 2) Altered nutrition related lab values aeb hypocalcemia, hyperbilirubinemia, elev LFTs, severe hypoalbuminemia r/t current medical condition Comments: Will continue to monitor PO intake, skin status. F/u mod 3-5 days Rec: 1) Continue with regular diet as tolerated 2) Consider restarting TPN if medically feasible d/t to allergy 3) Continue current plan of care
--- NOTE | 2020-07-17 16:20 | NUR ---
UNABLE TO COLLECT URINE SAMPLE DUE TO IT BEING MIXED WITH LOOSE STOOL. PATIENT DRESSING CHANGED ON RIGHT AND LEFT BUTTOCKS PER WOUND CARE ORDER. WILL CONTINUE TO MONITOR PATIENT.
[2020-07-17] MEDS: HYDROcodone-ACET 5/325MG TAB PO PRN ×2 (16:32→21:12)
[2020-07-17 16:59] VITALS: BP 93/53
[2020-07-17] MEDS: InsuLIN REG 1unit/0.01ml Soln (100units/ml) SC SCH ×2 (17:46→23:09)
[2020-07-17] MEDS: ACCU-CHEK COMFORT CURVE STRIP VI SCH ×2 (17:46→23:09)
[2020-07-17] MEDS ORDERED: TPN PER PHARMACY 0 ML IV SCH (18:00)
--- NOTE | 2020-07-17 19:40 | NUR ---
Opening Shift Note Assumed care of patient, AOx4. No S/S of distress/SOB. Fall and safety precautions in place. Call light within reach and able to use. Instructed on POC and to call for assist PRN, patient verbalized understanding and in agreement. Will continue to monitor for changes Q1hr and PRN.
--- NOTE | 2020-07-17 19:50 | NUR ---
REFUSED PPN / ALLERGY UPON ENTERING ROOM TO ADMINISTER PPN, PATIENT STATES THAT MEDICATION HAS BEEN MAKING HER ITCHY. PATIENT STATES SHE HAS AN ALLERGY TO LATEX AND THAT MEDICATION/BAG CONTAINS LATEX. PATIENT STATES SHE DOES NOT WANT PPN. ATTEMPTED TO CALL IN-HOUSE PHARMACY, NO ANSWER. ON-CALL HOSP PAGED TO NOTIFY. AWAITING CALL BACK. WILL CONTINUE TO MONITOR.
[2020-07-17] MEDS ORDERED: PPN PER PHARMACY IV NR ×16 (20:00→23:00)
[2020-07-17 21:29] VITALS: BP 95/54
--- NOTE | 2020-07-17 22:09 | NUR ---
ON-CALL HOSP CALL BACK RECEIVED CALL BACK FROM ON-CALL HOSP AT THIS TIME. UPDATED BOTTLE SELECTOR ON PATIENT STATUS, PATIENT ITCHING DUE TO LATEX ALLERGY CAUSED BY PPN. BOTTLE SELECTOR ORDERED BENADRYL, READ BACK AND VERIFIED (SEE NEW ORDERS) AND TO ENCOURAGE PATIENT TO RESUME PPN DESPITE ALLERGY. WILL CARRY OUT. WILL CALL AFTER-HOURS PHARMACY TO REQUEST MEDICATION TO BE RESCHEDULED. WILL CONTINUE TO MONITOR.
--- NOTE | 2020-07-17 22:21 | NUR ---
PPN RESCHEDULED AFTER HOURS PHARMACY CALLED AT THIS TIME, CONNECTED TO [facility]. UPDATED CHERYL ON PATIENT SITUATION AND PPN TO BE RESTARTED AT 2300 (SEE EMAR). WILL CARRY OUT.
[2020-07-17] MEDS: diphenhdrAMINE HCL 25 MG CAP PO PRN (22:28)
[2020-07-18] MEDS: MEROPENEM 1GM IVPB 100 ML IV SCH ×3 (03:14→20:06)
[2020-07-18] MEDS: diphenhdrAMINE HCL 25 MG CAP PO PRN (03:18)
[2020-07-18 05:29] VITALS: BP 91/48
[2020-07-18] MEDS: InsuLIN REG 1unit/0.01ml Soln (100units/ml) SC SCH ×4 (05:32→23:50)
[2020-07-18] MEDS: ACCU-CHEK COMFORT CURVE STRIP VI SCH ×4 (05:32→23:50)
[2020-07-18] MEDS: SUCRALFATE 1 GM/10 ML ORAL SUSP PO SCH ×4 (06:07→21:06)
--- NOTE | 2020-07-18 06:20 | NUR ---
BLOOD SENT TO LAB
[2020-07-18 07:03] LABS: Potassium 3.6 mmol/L (3.5-5.1)
[2020-07-18 07:15] LABS: Albumin 1.6 g/dL (3.4-5.0); BUN/Creatinine Ratio 13.1; Bilirubin, Total 4.4 mg/dL (0.2-1.0); Calcium 7.6 mg/dL (8.5-10.1); Magnesium 2.4 mg/dL (1.6-2.6); Phosphorus 1.7 mg/dL (2.5-4.90); Total Protein 6.6 g/dL (6.4-8.2)
[2020-07-18] MEDS: Pro-Stat SF 30ml Vanilla PO SCH ×2 (08:00→18:00)
[2020-07-18 09:10] VITALS: BP 93/50
[2020-07-18] MEDS: DOCUSATE SOD 100 MG CAP PO SCH (10:00)
[2020-07-18] MEDS: PANTOPRAZOLE 40 MG/10 ML VIAL INJ IV SCH ×2 (10:34→21:06)
[2020-07-18] MEDS: THIAMINE HCL 100 MG TAB PO SCH (10:34)
[2020-07-18] MEDS: FOLIC ACID 1 MG TAB PO SCH (10:34)
[2020-07-18] MEDS: SPIRONOLACTONE 25 MG TAB PO SCH (10:34)
[2020-07-18] MEDS: PARoxetine 20 MG TAB PO SCH (10:34)
[2020-07-18] MEDS ORDERED: POTASSIUM PHOSPHATE 22 MEQ in SODIUM CHL 0.9% 100 ML IV ONE ×2 (11:00→16:00)
[2020-07-18] MEDS: SODIUM FERR GLUC 62.5MG/5ML 125 MG in SODIUM CHL 0.9% 100 ML IV SCH (12:07)
[2020-07-18 12:47] VITALS: BP 101/62
--- NOTE | 2020-07-18 14:00 | NUR ---
PATIENT COMPLAIN OF IV SITE TENDERNESS AND BURNING WHEN TRANSFUSING POTASSIUM PHOSPHATE. IV STOPPED AND IV SITE ASSESSED, NO REDNESS OR SWELLING NOTED. IV LINE FLUSHED AND PATIENT STATED IT WAS TENDER TO THE TOUCH. IV MEDICATION CHANGED TO A DIFFERENT IV SITE. LINE FLUSHED WITH NO SIGNS OF INFILTRATION. RATE FOR POTASSIUM PHOSPHATE LOWERED AND PATIENT TOLERATED WELL WITH NO SIGNS OF DISTRESS. WILL CONTINUE TO MONITOR PATIENT.
[2020-07-18 16:20] VITALS: BP 104/94
[2020-07-18] MEDS ORDERED: PPN PER PHARMACY IV NR ×8 (20:00)
[2020-07-18] MEDS: ONDANSETRON HCL 4 MG/2 ML VIAL IV PRN (20:55)
[2020-07-18] MEDS: HYDROcodone-ACET 5/325MG TAB PO PRN (20:56)
[2020-07-18 21:51] VITALS: BP 96/59
[2020-07-19] MEDS: MEROPENEM 1GM IVPB 100 ML IV SCH ×3 (03:19→20:04)
[2020-07-19 05:32] VITALS: BP 99/56
[2020-07-19] MEDS: ACCU-CHEK COMFORT CURVE STRIP VI SCH ×4 (05:43→23:58)
[2020-07-19] MEDS: InsuLIN REG 1unit/0.01ml Soln (100units/ml) SC SCH ×4 (05:46→23:59)
[2020-07-19] MEDS: HYDROcodone-ACET 5/325MG TAB PO PRN (05:46)
[2020-07-19] MEDS: SUCRALFATE 1 GM/10 ML ORAL SUSP PO SCH ×4 (06:00→21:43)
[2020-07-19 06:36] LABS: Potassium 4.2 mmol/L (3.5-5.1)
[2020-07-19 07:03] LABS: Albumin 1.3 g/dL (3.4-5.0); BUN/Creatinine Ratio 17.2; Bilirubin, Total 4.1 mg/dL (0.2-1.0); Magnesium 2.1 mg/dL (1.6-2.6); Phosphorus 2.1 mg/dL (2.5-4.90); Total Protein 6.5 g/dL (6.4-8.2)
--- NOTE | 2020-07-19 07:30 | NUR ---
Opening Shift Note Received report and assumed care of patient,asleep, No S/S of distress/SOB. Fall and safety precautions in place. Call light within reach and able to use. Instructed on POC and to call for assist PRN, will assist and turn patient q 2 hours, Will continue to monitor for changes Q1hr and PRN.
[2020-07-19] MEDS: Pro-Stat SF 30ml Vanilla PO SCH ×2 (08:00→17:57)
[2020-07-19 08:58] VITALS: BP_SYST 137; BP_SYST 94; BP_DIAS 53; BP_DIAS 76
[2020-07-19] MEDS ORDERED: GASTROGRAFIN 120 ML SOL ONE (09:13)
[2020-07-19] MEDS ORDERED: EZ-GAS II GRANULES (RADIOLOGY USE) PO ONE (09:20)
[2020-07-19] MEDS ORDERED: READI-CAT 2 (BARIUM SULF)(VANILLA SMOOTHIE) 450ML ONE (09:56)
[2020-07-19] MEDS: SPIRONOLACTONE 25 MG TAB PO SCH (10:00)
[2020-07-19] MEDS ORDERED: SODIUM PHOSPHATES 20 MEQ in SODIUM CHL 0.9% 100 ML IV ONE (10:00)
--- NOTE | 2020-07-19 10:05 | NUR ---
Pt is off unit for procedure. Will attempt PT treatment later.
--- NOTE | 2020-07-19 10:12 | NUR ---
PATIENT BACK TO ROOM,PER FILLER PICKER PATIENT WONT SWALLOW AND FINISH BARIUM
[2020-07-19] MEDS: PANTOPRAZOLE 40 MG/10 ML VIAL INJ IV SCH ×2 (10:43→21:43)
[2020-07-19] MEDS: FOLIC ACID 1 MG TAB PO SCH (10:43)
[2020-07-19] MEDS: PARoxetine 20 MG TAB PO SCH (10:43)
[2020-07-19] MEDS: THIAMINE HCL 100 MG TAB PO SCH (10:44)
[2020-07-19] MEDS: SODIUM FERR GLUC 62.5MG/5ML 125 MG in SODIUM CHL 0.9% 100 ML IV SCH (12:03)
--- NOTE | 2020-07-19 12:30 | NUR ---
PATIENT OFFERED AND ENCOURAGED TO EAT,PATIENT REFUSED
[2020-07-19 12:42] VITALS: BP 97/48
--- NOTE | 2020-07-19 14:15 | NUR ---
Pt refused PT today stating she has a stomach ache and has no energy to get up. Will attempt again tomorrow.
[2020-07-19 16:59] VITALS: BP 95/58
--- NOTE | 2020-07-19 18:30 | NUR ---
PATIENT OFFERED AND ENCOURAGED TO EAT,PATIENT REFUSED,STATED ONLY WANTS ICE WATER
--- NOTE | 2020-07-19 19:13 | NUR ---
Opening Shift Note Assumed care of patient, awake, alert and oriented x4, on room air with even and unlabored respirations, no S/S of distress/SOB or pain. Bed in lowest locked position, side rails up x2, and call light within reach. Instructed on POC and to call for assist PRN, will continue to monitor for changes Q1hr and PRN.
[2020-07-19] MEDS ORDERED: PPN PER PHARMACY IV SCH ×7 (20:00)
[2020-07-19 22:00] VITALS: BP 100/56
[2020-07-20] MEDS: MEROPENEM 1GM IVPB 100 ML IV SCH ×3 (04:00→20:00)
[2020-07-20 05:00] VITALS: BP 100/53
[2020-07-20] MEDS: InsuLIN REG 1unit/0.01ml Soln (100units/ml) SC SCH ×4 (06:00→23:42)
[2020-07-20] MEDS: ACCU-CHEK COMFORT CURVE STRIP VI SCH ×4 (06:21→23:42)
[2020-07-20] MEDS: SUCRALFATE 1 GM/10 ML ORAL SUSP PO SCH ×4 (06:35→22:14)
[2020-07-20 06:59] LABS: Potassium 4.2 mmol/L (3.5-5.1)
[2020-07-20 07:11] LABS: Albumin 1.3 g/dL (3.4-5.0); BUN/Creatinine Ratio 24.6; Calcium 7.2 mg/dL (8.5-10.1); Magnesium 2.2 mg/dL (1.6-2.6); Phosphorus 2.6 mg/dL (2.5-4.90); Total Protein 6.6 g/dL (6.4-8.2)
[2020-07-20 07:30] LABS: Red Blood Cells 1.73 10^6/uL (4.0-5.20)
--- NOTE | 2020-07-20 07:30 | NUR ---
Opening Shift Note Report received,assumed care of patient,asleep,arousable . AOx4. No S/S of distress/SOB. Fall and safety precautions in place. Call light within reach and able to use. Instructed on POC and to call for assist PRN,patient verbalized understanding,explain importance of turning q 2 hours, Will continue to monitor for changes Q1hr and PRN.
[2020-07-20 07:32] LABS: Hematocrit 19.7 % (36.0-46.0); Mean Corpuscular Hemoglobin 35.9 pg (28.0-32.0); Mean Corpuscular Hgb Conc. 31.3 g/dL (32.0-36.0); Mean Corpuscular Volume 114.4 fL (80.0-100.0); Platelet Count (auto) 161 10^3/uL (140-450); White Blood Cell 22.3 10^3/uL (4.4-10.8)
[2020-07-20 07:35] LABS: Red Cell Distribution Width 21.4 % (11.8-14.3)
[2020-07-20 07:37] LABS: Hemoglobin 6.2 g/dL (12.2-16.2)
[2020-07-20 07:38] LABS: Basophils % (manual) 0 (0.0-2.0); Blast Cells 0; Eosinophils % (manual) 0 (0-7); Metamyelocytes % 0; Myelocytes % 0; Promyelocytes % 0; Reactive Lymphocytes 0
[2020-07-20 07:56] LABS: Band Neutrophils % (manual) 1; Lymphocytes % (manual) 13 (10.0-50.0); Monocytes % (manual) 7 (0-12)
[2020-07-20 09:00] VITALS: BP_SYST 102; BP_SYST 103; BP_DIAS 58
--- NOTE | 2020-07-20 09:50 | NUR ---
MD VISIT DR LUU HERE TO SEE AND EXAMINED PATIENT,RECEIVED ORDER
[2020-07-20] MEDS ORDERED: METOCLOPRAMIDE HCL 5MG/ml INJ 2ml VIAL IV SCH (10:00)
[2020-07-20] MEDS: PANTOPRAZOLE 40 MG/10 ML VIAL INJ IV SCH ×2 (10:11→22:14)
[2020-07-20] MEDS: FOLIC ACID 1 MG TAB PO SCH (10:11)
[2020-07-20] MEDS: THIAMINE HCL 100 MG TAB PO SCH (10:12)
[2020-07-20] MEDS: SPIRONOLACTONE 25 MG TAB PO SCH (10:12)
[2020-07-20] MEDS: PARoxetine 20 MG TAB PO SCH (10:12)
[2020-07-20] MEDS: Pro-Stat SF 30ml Vanilla PO SCH ×2 (10:13→17:34)
--- NOTE | 2020-07-20 11:50 | NUR ---
MD VISIT DR. MEZA HERE TO SEE AND EXAMINED PATIENT,UPDATED WITH PATIENT STATUS,NOT EATING ,REFUSING TO GET OOB WITH P.T. AND EPISODES OD DIARRHEA YESTERDAY AND LAST NIGHT.
[2020-07-20] MEDS ORDERED: FLUCONAZOLE 200MG/100ML 100 ML IV ONE (12:00)
[2020-07-20] MEDS: ACETAMINOPHEN 325 MG TAB PO PRN (12:00)
--- NOTE | 2020-07-20 12:00 | NUR ---
C/O HEAD ACHE AND NAUSEA,MEDICATED WITH ZOFRAN 4 MG IV AND TYLENOL 650 MG PO,SEE eMAR FOR DETAIL.
[2020-07-20] MEDS: ONDANSETRON HCL 4 MG/2 ML VIAL IV PRN (12:01)
[2020-07-20] MEDS: SODIUM FERR GLUC 62.5MG/5ML 125 MG in SODIUM CHL 0.9% 100 ML IV SCH (12:01)
[2020-07-20] MEDS ORDERED: PHYTONADIONE (VIT K)10 MG/ML 1ML VIAL SUBCUT ONE (12:30)
--- NOTE | 2020-07-20 12:49 | NUR ---
Nutrition Followup Note Wt: 73.4 kg Pt was sleeping at time of rounds. pt is currently on regular diet with inadequate PO fo < 505 x 4 per RN doc along with PN support @ 67 ml/hr providing 864 kcals and 80 gm proteins Est Energy needs: 7498-0572 kcals (23-25 kcal/kgBW), Est Protein needs: 57-71 gms/day (1.0-1.3gm/kgBW r/t hypoalb). Will continue to monitor and reassess prn. Reassessed Labs: CA 8.2 L ALB 1.3 L YIFAN 4.0 H BM: Pt with 1 BMs today per RN note Skin: BS 12 high risk, full details in animal caretaker supervisor note PES: 1) Inadequate oral intake aeb ave 42% PO intake r/t pt with a poor appetite 2) Altered nutrition related lab values aeb hypocalcemia, hyperbilirubinemia, elev LFTs, severe hypoalbuminemia r/t current medical condition Comments: Will continue to monitor PO intake, PN tolerance, skin status. F/u mod 2-3 days Rec: 1) advance PN support to meet > 75% of needs if PO continues to be low. 2) consider ensure enlive 1 carton bid. 3) Continue current plan of care
[2020-07-20 16:49] VITALS: BP 93/57
--- NOTE | 2020-07-20 18:00 | NUR ---
MARITZA CARE DONE,SKIN BARRIER APPLIED,OPTIFOAM TO LEFT BUTT SKIN TEAR AND RIGHT INNER THIGH SKIN TEAR APPLIED. RIGHT UPPER ARM MID LINE SITE BLOODY, DRESSING CHANGED USING ASEPTIC TECHNIQUE,DRESSING DATED.
--- NOTE | 2020-07-20 18:27 | NUR ---
STATUS UNCHANGED NO DISTRESS,NO DISCOMFORT.
[2020-07-20] MEDS ORDERED: PPN PER PHARMACY IV NR ×7 (20:00)
[2020-07-20 22:12] VITALS: BP 103/66
[2020-07-20] MEDS: HYDROcodone-ACET 5/325MG TAB PO PRN (23:41)
[2020-07-21] MEDS: MEROPENEM 1GM IVPB 100 ML IV SCH ×3 (04:00→20:05)
[2020-07-21 05:29] VITALS: BP 125/75
[2020-07-21] MEDS: InsuLIN REG 1unit/0.01ml Soln (100units/ml) SC SCH ×4 (06:00→23:42)
[2020-07-21] MEDS: ACCU-CHEK COMFORT CURVE STRIP VI SCH ×4 (06:06→23:42)
[2020-07-21] MEDS: SUCRALFATE 1 GM/10 ML ORAL SUSP PO SCH ×4 (06:33→21:06)
[2020-07-21 06:41] LABS: Basophils # (auto) 0.2 10 ^3/uL (0-0.2); Eosinophils # (auto) 0.1 10 ^3/uL (0-0.8); Eosinophils % (auto) 0.3 % (0.0-7.0); Hematocrit 21.4 % (36.0-46.0); Lymphocytes # (auto) 3.1 10 ^3/uL (0.4-5.4); Lymphocytes % (auto) 15.6 % (10.0-50.0); Mean Corpuscular Hemoglobin 35.7 pg (28.0-32.0); Mean Corpuscular Hgb Conc. 30.8 g/dL (32.0-36.0); Mean Corpuscular Volume 115.9 fL (80.0-100.0); Monocytes # (auto) 1.8 10 ^3/uL (0-1.3); Monocytes % (auto) 9.3 % (0.0-12.0); Neutrophils # (auto) 14.7 10 ^3/uL (1.6-8.6); Neutrophils % (auto) 73.8 % (37.0-80.0); Nucleated Red Blood Cells % 0.1 %; Platelet Count (auto) 223 10^3/uL (140-450); Red Blood Cells 1.84 10^6/uL (4.0-5.20); White Blood Cell 19.9 10^3/uL (4.4-10.8)
[2020-07-21 06:44] LABS: INR 1.56 (0.9-1.15)
[2020-07-21 06:54] LABS: Red Cell Distribution Width 22.4 % (11.8-14.3)
[2020-07-21 06:57] LABS: Hemoglobin 6.6 g/dL (12.2-16.2)
--- NOTE | 2020-07-21 07:08 | NUR ---
Critical LAB value Received a call from Mirta of laboratory that patient's HGB level is 6.6 still at critical end. Informed that it has gotten better from 6.2 from day prior. Will notify provider today. Will endorse to next shift.
--- NOTE | 2020-07-21 07:30 | NUR ---
Pt. is sleeping comfortably in bed. Bed is onlowest position, TPN and fluids running properly.
[2020-07-21] MEDS: Pro-Stat SF 30ml Vanilla PO SCH ×2 (08:00→17:45)
[2020-07-21 08:32] LABS: Albumin 1.2 g/dL (3.4-5.0); Calcium 7.4 mg/dL (8.5-10.1); Magnesium 2.2 mg/dL (1.6-2.6)
[2020-07-21 08:35] LABS: BUN/Creatinine Ratio 26.6; Bilirubin, Total 3.7 mg/dL (0.2-1.0); Phosphorus 2.6 mg/dL (2.5-4.90); Total Protein 6.5 g/dL (6.4-8.2)
[2020-07-21 09:00] VITALS: BP 101/56
[2020-07-21] MEDS ORDERED: HYOSCYAMINE SULF 0.125 MG ODT TAB PO PRN (10:00)
[2020-07-21] MEDS: THIAMINE HCL 100 MG TAB PO SCH (10:00)
[2020-07-21] MEDS: PANTOPRAZOLE 40 MG/10 ML VIAL INJ IV SCH ×2 (10:00→21:06)
[2020-07-21] MEDS: ONDANSETRON HCL 4 MG/2 ML VIAL IV PRN (11:09)
[2020-07-21] MEDS: FOLIC ACID 1 MG TAB PO SCH (11:37)
[2020-07-21] MEDS: FLUCONAZOLE 200MG/100ML 100 ML IV SCH (11:37)
[2020-07-21] MEDS: PARoxetine 20 MG TAB PO SCH (11:37)
[2020-07-21] MEDS: SPIRONOLACTONE 25 MG TAB PO SCH ×2 (11:38→21:06)
[2020-07-21] MEDS: SODIUM FERR GLUC 62.5MG/5ML 125 MG in SODIUM CHL 0.9% 100 ML IV SCH (12:00)
[2020-07-21] MEDS ORDERED: FUROSEMIDE 40 MG TAB PO ONE (12:45)
[2020-07-21 13:00] VITALS: BP 112/71
[2020-07-21 17:00] VITALS: BP_SYST 103; BP_SYST 126; BP_DIAS 57; BP_DIAS 86
--- NOTE | 2020-07-21 18:11 | NUR ---
Pt. was gotten out of bed to chair with maximum assistance. She stated she felt dizzy at first, but then she was able to tolerate well. She continues to refuse to eat at this time. She will try to stay in chair for 30 minutes.
--- NOTE | 2020-07-21 18:43 | NUR ---
Pt. was only able to tolerated 20 minutes in chair. She was then attempted to get back in bad, but she was unable to bear any weight on her legs. It took 3 people assist to get her back in bed. She then drank 25% of her ensure with ice.
--- NOTE | 2020-07-21 19:30 | NUR ---
Opening Shift Note Assumed care of patient, awake and alert. No S/S of distress/SOB or pain. Instructed on POC and to call for assist PRN, will continue to monitor for changes Q1hr and PRN.
[2020-07-21] MEDS ORDERED: PPN PER PHARMACY IV NR ×7 (20:00)
[2020-07-21] MEDS: diphenhdrAMINE HCL 25 MG CAP PO PRN (21:06)
[2020-07-21 22:00] VITALS: BP 104/61
[2020-07-22] MEDS: MEROPENEM 1GM IVPB 100 ML IV SCH ×3 (03:33→20:01)
[2020-07-22 05:00] VITALS: BP 105/65
[2020-07-22] MEDS: InsuLIN REG 1unit/0.01ml Soln (100units/ml) SC SCH ×4 (06:00→23:50)
[2020-07-22] MEDS: SUCRALFATE 1 GM/10 ML ORAL SUSP PO SCH ×4 (06:19→21:37)
[2020-07-22] MEDS: ACCU-CHEK COMFORT CURVE STRIP VI SCH ×4 (06:19→23:50)
[2020-07-22 07:13] LABS: Mean Corpuscular Hgb Conc. 31.5 g/dL (32.0-36.0); Red Blood Cells 1.81 10^6/uL (4.0-5.20)
[2020-07-22 07:15] LABS: Potassium 3.9 mmol/L (3.5-5.1)
[2020-07-22 07:19] LABS: Hematocrit 20.8 % (36.0-46.0); Mean Corpuscular Hemoglobin 36.3 pg (28.0-32.0); Mean Corpuscular Volume 115.1 fL (80.0-100.0); Platelet Count (auto) 206 10^3/uL (140-450); White Blood Cell 20.6 10^3/uL (4.4-10.8)
[2020-07-22 07:25] LABS: Albumin 1.2 g/dL (3.4-5.0); BUN/Creatinine Ratio 26.2; Bilirubin, Total 3.6 mg/dL (0.2-1.0); Calcium 7.6 mg/dL (8.5-10.1); Magnesium 2.4 mg/dL (1.6-2.6); Phosphorus 2.4 mg/dL (2.5-4.90); Total Protein 6.4 g/dL (6.4-8.2)
--- NOTE | 2020-07-22 07:30 | NUR ---
Assumed care of Pt. She is awake and alert at this time, complaining of abdominal pain. She was given Serena, but she vomited it. She was then given Zofran. Will notify physician and request to get pain medication IV.
[2020-07-22 07:35] LABS: Red Cell Distribution Width 23.1 % (11.8-14.3)
[2020-07-22 07:39] LABS: Hemoglobin 6.6 g/dL (12.2-16.2)
[2020-07-22 07:40] LABS: Basophils % (manual) 0 (0.0-2.0); Myelocytes % 0
[2020-07-22 07:41] LABS: Blast Cells 0; Promyelocytes % 0; Reactive Lymphocytes 0
[2020-07-22] MEDS: HYDROcodone-ACET 5/325MG TAB PO PRN (07:45)
[2020-07-22] MEDS: ONDANSETRON HCL 4 MG/2 ML VIAL IV PRN (07:51)
[2020-07-22] MEDS: Pro-Stat SF 30ml Vanilla PO SCH ×2 (08:00→17:29)
[2020-07-22 08:15] LABS: Band Neutrophils % (manual) 6; Eosinophils % (manual) 1 (0-7); Lymphocytes % (manual) 12 (10.0-50.0); Metamyelocytes % 1; Monocytes % (manual) 6 (0-12)
[2020-07-22 09:00] VITALS: BP 106/63
[2020-07-22] MEDS ORDERED: HYDROmorphone HCL 2 MG/ML VL IV PRN (09:30)
--- NOTE | 2020-07-22 10:30 | NUR ---
Assumed care of patient Received report from GLENDA Mcpherson. Patient is awake, alert and oriented x4. No signs or symptoms of distress noted at this time. Will continue to monitor Q1 hour and PRN.
[2020-07-22] MEDS: PANTOPRAZOLE 40 MG/10 ML VIAL INJ IV SCH ×2 (12:04→21:37)
[2020-07-22] MEDS: FLUCONAZOLE 200MG/100ML 100 ML IV SCH (12:04)
[2020-07-22] MEDS: PARoxetine 20 MG TAB PO SCH (12:06)
[2020-07-22] MEDS: SPIRONOLACTONE 25 MG TAB PO SCH ×2 (12:07→21:38)
[2020-07-22] MEDS: THIAMINE HCL 100 MG TAB PO SCH (12:07)
[2020-07-22] MEDS: FUROSEMIDE 40 MG TAB PO SCH (12:07)
[2020-07-22] MEDS: FOLIC ACID 1 MG TAB PO SCH (12:08)
[2020-07-22] MEDS ORDERED: SODIUM PHOSP 20MEQ(15MMOL) IN NS 100 ML IV ONE (12:30)
--- NOTE | 2020-07-22 12:43 | NUR ---
Nutrition Followup Note Wt: 73.4 kg Pt was sleeping at time of rounds. pt is currently on regular diet with inadequate PO fo < 50% x 2days per RN doc along with PN support @ 67 ml/hr providing 864 kcals and 80 gm proteins Est Energy needs: 9656-4142 kcals (23-25 kcal/kgBW), Est Protein needs: 57-71 gms/day (1.0-1.3gm/kgBW r/t hypoalb). Will continue to monitor and reassess prn. Reassessed Labs: ALB 1.2 L, CA 7.6 L, YIFAN 3.6 H BM: Pt with 1 BMs today per RN note Skin: BS 9 high risk, full details in caregiver assisted living note PES: 1) Inadequate oral intake aeb ave 42% PO intake r/t pt with a poor appetite 2) Altered nutrition related lab values aeb hypocalcemia, hyperbilirubinemia, elev LFTs, severe hypoalbuminemia r/t current medical condition Comments: Will continue to monitor PO intake, PN tolerance, skin status. F/u mod 2-3 days Rec: 1) advance PN support to meet > 75% of needs if PO continues to be low. 2) consider ensure enlive 1 carton bid. 3) Continue current plan of care
--- NOTE | 2020-07-22 12:55 | NUR ---
Dr. Shafer at bedside MD discussing plan of care with patient and this RN. Patient to have EGD tomorrow. Patient states she needs to talk to her first. Will continue to monitor Q1 hour and PRN.
[2020-07-22] MEDS: SODIUM FERR GLUC 62.5MG/5ML 125 MG in SODIUM CHL 0.9% 100 ML IV SCH (13:55)
[2020-07-22] MEDS: METOCLOPRAMIDE HCL 5MG/ml INJ 2ml VIAL IV SCH ×2 (13:55→21:37)
[2020-07-22 16:12] VITALS: BP 98/65
--- NOTE | 2020-07-22 19:13 | NUR ---
Closing Note Report given to limousine rental clerk RN. No signs or symptoms of distress noted at this time.
[2020-07-22] MEDS ORDERED: PPN PER PHARMACY IV NR ×7 (20:00)
[2020-07-22 21:00] VITALS: BP 109/64
[2020-07-23] MEDS: MEROPENEM 1GM IVPB 100 ML IV SCH ×3 (04:22→20:43)
[2020-07-23] MEDS: SUCRALFATE 1 GM/10 ML ORAL SUSP PO SCH ×4 (04:54→22:15)
[2020-07-23 05:00] VITALS: BP 113/68
[2020-07-23] MEDS: ACCU-CHEK COMFORT CURVE STRIP VI SCH ×3 (05:37→17:42)
[2020-07-23] MEDS: METOCLOPRAMIDE HCL 5MG/ml INJ 2ml VIAL IV SCH ×3 (05:37→22:15)
[2020-07-23] MEDS: InsuLIN REG 1unit/0.01ml Soln (100units/ml) SC SCH ×3 (06:00→17:43)
[2020-07-23 06:49] LABS: Basophils # (auto) 0.1 10 ^3/uL (0-0.2); Eosinophils # (auto) 0.1 10 ^3/uL (0-0.8)
[2020-07-23 06:51] LABS: Basophils % (auto) 0.5 % (0.0-2.0); Eosinophils % (auto) 0.4 % (0.0-7.0); Hematocrit 22.4 % (36.0-46.0); Lymphocytes # (auto) 3.1 10 ^3/uL (0.4-5.4); Lymphocytes % (auto) 16.7 % (10.0-50.0); Mean Corpuscular Hemoglobin 36.3 pg (28.0-32.0); Mean Corpuscular Volume 117.3 fL (80.0-100.0); Monocytes # (auto) 1.7 10 ^3/uL (0-1.3); Monocytes % (auto) 9.1 % (0.0-12.0); Neutrophils # (auto) 13.4 10 ^3/uL (1.6-8.6); Neutrophils % (auto) 73.3 % (37.0-80.0); Nucleated Red Blood Cells % 0.1 %; Platelet Count (auto) 212 10^3/uL (140-450); Red Blood Cells 1.91 10^6/uL (4.0-5.20); White Blood Cell 18.3 10^3/uL (4.4-10.8)
[2020-07-23 07:00] LABS: Red Cell Distribution Width 23.3 % (11.8-14.3)
[2020-07-23 07:05] LABS: INR 1.46 (0.9-1.15)
--- NOTE | 2020-07-23 07:05 | NUR ---
paged hospitalist regarding pt's critical lab value. awaiting callback
[2020-07-23 07:10] LABS: Albumin 1.1 g/dL (3.4-5.0); Calcium 7.6 mg/dL (8.5-10.1); Magnesium 2.3 mg/dL (1.6-2.6); Potassium 3.7 mmol/L (3.5-5.1)
[2020-07-23 07:15] LABS: BUN/Creatinine Ratio 30.8; Bilirubin, Total 2.9 mg/dL (0.2-1.0); Phosphorus 2.8 mg/dL (2.5-4.90); Total Protein 6.2 g/dL (6.4-8.2)
[2020-07-23 07:24] LABS: Pre Albumin 4.4 mg/dL (20.0-40.0)
--- NOTE | 2020-07-23 07:34 | NUR ---
endorsed care to day RN, no sign of pain/distress at this time
[2020-07-23] MEDS: Pro-Stat SF 30ml Vanilla PO SCH ×2 (08:00→18:00)
--- NOTE | 2020-07-23 08:00 | NUR ---
Opening Shift Note Assumed care of patient, awake and alert. No S/S of distress/SOB or pain. Patient has generalized weakness and poor appetite. bilateral upper/lower extremity noted. Patient is a maximum assist with ADL's, on specialty mattress. Instructed on POC and to call for assist PRN, will continue to monitor for changes Q1hr and PRN.
[2020-07-23 09:00] VITALS: BP 108/64
[2020-07-23] MEDS: PANTOPRAZOLE 40 MG/10 ML VIAL INJ IV SCH ×2 (09:56→22:15)
[2020-07-23] MEDS: FLUCONAZOLE 200MG/100ML 100 ML IV SCH (09:57)
[2020-07-23] MEDS: FUROSEMIDE 40 MG TAB PO SCH (10:00)
[2020-07-23] MEDS: FOLIC ACID 1 MG TAB PO SCH (10:00)
[2020-07-23] MEDS: SPIRONOLACTONE 25 MG TAB PO SCH ×2 (10:00→22:15)
[2020-07-23] MEDS: THIAMINE HCL 100 MG TAB PO SCH (10:00)
[2020-07-23] MEDS: PARoxetine 20 MG TAB PO SCH (10:00)
--- NOTE | 2020-07-23 10:30 | NUR ---
Patient refused EGD. DR. Soni murillo.
--- NOTE | 2020-07-23 11:30 | NUR ---
WOUND CARE NOTE: IN TO SEE PATIENT AT THIS TIME FOR SKIN INTEGRITY MONITORING. PATIENT HAS CURRENT KRISTIN SCORE OF 11. PATIENT RESTING ON SPECIALTY AIR MATTRESS. SHE IS ABLE TO ASSIST WITH HER TURNING/REPOSITIONING, BUT IS VERY WEAK, REQUIRING MAX ASSIST FOR HER ADL'S. PATIENT TURNED TO RIGHT SIDE. HER MASD WITH SKIN EROSION LOOKS MUCH IMPROVED WITH DARK RED SKIN, MULTIPLE PINK, INTACT SCARS, AND MILD SKIN EROSION TO LEFT BUTTOCK. NEW WOUND PHOTO TAKEN AT THIS TIME FOR REFERENCE. PATIENT REPOSITIONED ONTO RIGHT SIDE, REDISTRIBUTING PRESSURE POINTS WITH PILLOWS/WEDGES. NO OTHER SKIN INTEGRITY ISSUES SEEN AT THIS TIME. RECOMMEND: CONTINUATION WITH ALL WOUND CARE ORDERS PREVIOUSLY PRESCRIBED BY MD. WOUND CARE TEAM WILL CONTINUE TO MONITOR. Addendum: 07/23/20 at 1217 by Vicenta Trevizo RN Amended: Links added.
[2020-07-23] MEDS: SODIUM FERR GLUC 62.5MG/5ML 125 MG in SODIUM CHL 0.9% 100 ML IV SCH (12:58)
[2020-07-23 13:00] VITALS: BP 101/61
[2020-07-23] MEDS: ONDANSETRON HCL 4 MG/2 ML VIAL IV PRN (16:58)
[2020-07-23] MEDS: HYDROmorphone HCL 2 MG/ML VL IV PRN ×2 (16:59→22:37)
[2020-07-23 17:15] VITALS: BP 101/64
[2020-07-23] MEDS ORDERED: PPN PER PHARMACY IV NR ×8 (20:00)
[2020-07-23 21:00] VITALS: BP_SYST 103; BP_SYST 142; BP_DIAS 55; BP_DIAS 77
[2020-07-24] MEDS: ACCU-CHEK COMFORT CURVE STRIP VI SCH ×4 (00:18→17:45)
[2020-07-24] MEDS: MEROPENEM 1GM IVPB 100 ML IV SCH ×3 (03:54→21:11)
[2020-07-24 05:00] VITALS: BP 105/51
[2020-07-24] MEDS: SUCRALFATE 1 GM/10 ML ORAL SUSP PO SCH ×4 (06:25→21:13)
[2020-07-24] MEDS: METOCLOPRAMIDE HCL 5MG/ml INJ 2ml VIAL IV SCH ×3 (06:25→21:12)
[2020-07-24] MEDS: InsuLIN REG 1unit/0.01ml Soln (100units/ml) SC SCH ×4 (06:43→17:46)
--- NOTE | 2020-07-24 06:43 | NUR ---
Closing Note Patient lying in bed, awake and alert. No s/s of distress. Call light within reach. Will endorse care to dayshift RN.
[2020-07-24 06:44] LABS: Basophils # (auto) 0.1 10 ^3/uL (0-0.2); Basophils % (auto) 0.6 % (0.0-2.0); Hemoglobin 7.3 g/dL (12.2-16.2); Lymphocytes # (auto) 3.1 10 ^3/uL (0.4-5.4)
[2020-07-24 06:46] LABS: Eosinophils # (auto) 0 10 ^3/uL (0-0.8); Eosinophils % (auto) 0.2 % (0.0-7.0); Hematocrit 22.9 % (36.0-46.0); Lymphocytes % (auto) 16.8 % (10.0-50.0); Mean Corpuscular Hemoglobin 37.1 pg (28.0-32.0); Mean Corpuscular Hgb Conc. 31.8 g/dL (32.0-36.0); Mean Corpuscular Volume 116.9 fL (80.0-100.0); Monocytes # (auto) 1.5 10 ^3/uL (0-1.3); Monocytes % (auto) 8.2 % (0.0-12.0); Neutrophils # (auto) 13.5 10 ^3/uL (1.6-8.6); Neutrophils % (auto) 74.2 % (37.0-80.0); Nucleated Red Blood Cells % 0.1 %; Platelet Count (auto) 193 10^3/uL (140-450); Red Blood Cells 1.96 10^6/uL (4.0-5.20); White Blood Cell 18.2 10^3/uL (4.4-10.8)
[2020-07-24 06:53] LABS: Red Cell Distribution Width 22.5 % (11.8-14.3)
[2020-07-24 07:03] LABS: Potassium 3.9 mmol/L (3.5-5.1)
[2020-07-24 07:18] LABS: Albumin 1.1 g/dL (3.4-5.0); BUN/Creatinine Ratio 32.7; Bilirubin, Total 2.8 mg/dL (0.2-1.0); Calcium 7.7 mg/dL (8.5-10.1); Magnesium 2.1 mg/dL (1.6-2.6); Phosphorus 2.8 mg/dL (2.5-4.90); Total Protein 6.5 g/dL (6.4-8.2)
[2020-07-24] MEDS: Pro-Stat SF 30ml Vanilla PO SCH ×2 (08:00→18:00)
--- NOTE | 2020-07-24 08:00 | NUR ---
Opening Shift Note Assumed care of patient, comfortably resting in bed. Breath sounds even and unlabored. No S/S of distress/SOB or pain. TPN running at 71mls/hr. Patient has generalized weakness and poor appetite. Bilateral upper/lower extremity edema noted. Patient is a maximum assist with ADL's, on specialty mattress. Instructed on POC and to call for assist PRN, will continue to monitor for changes Q1hr and PRN. Addendum: 07/25/20 at 1431 by Dariana Falcon RN *PPN
--- NOTE | 2020-07-24 08:30 | NUR ---
BM Patient had a bowel movement, cleansed patient and changed bed linen with help from BRADLEY Mitchell. Patient tolerated well. Will continue to monitor.
[2020-07-24 09:00] VITALS: BP 107/63
[2020-07-24] MEDS: FLUCONAZOLE 200MG/100ML 100 ML IV SCH (10:32)
[2020-07-24] MEDS: PANTOPRAZOLE 40 MG/10 ML VIAL INJ IV SCH ×2 (10:32→21:12)
[2020-07-24] MEDS: SPIRONOLACTONE 25 MG TAB PO SCH ×2 (10:33→21:13)
[2020-07-24] MEDS: THIAMINE HCL 100 MG TAB PO SCH (10:33)
[2020-07-24] MEDS: FOLIC ACID 1 MG TAB PO SCH (10:33)
[2020-07-24] MEDS: PARoxetine 20 MG TAB PO SCH (10:34)
[2020-07-24] MEDS: FUROSEMIDE 40 MG TAB PO SCH (10:34)
--- NOTE | 2020-07-24 12:05 | NUR ---
Nutrition Followup Note Wt: 73.4 kg Pt was sleeping at time of rounds. pt is currently on regular diet with inadequate PO fo < 50% x 2days per RN doc along with PN support @ 67 ml/hr providing 864 kcals and 80 gm proteins Nutrition Followup Notes Pt wt is 93.7 kg Pt was sleeping when rounded this morning. Pt is with a Full Liquid diet, appetite is inadequate aeb ave 6% PO intake over 5 meals per RN doc. Pt is also with TPN @ 71ml/hr providing 964 kcals, 80g protein and 644 NPCs. PN support meets 54-59% of est energy needs and 113-140% of est protein needs. Est Energy needs: 1346-0105 kcals (23-25 kcal/kgBW), Est Protein needs: 57-71 gms/day (1.0-1.3gm/kgBW r/t hypoalb). Will continue to monitor and reassess prn. Labs: ALB 1.1 L, CA 7.7 L, YIFAN 2.8 BM: Pt with BM every 7-10 hrs today per RN note Skin: BS 12 high risk, full details in child care nurse note PES: 1) Inadequate oral intake aeb ave 42% PO intake r/t pt with a poor appetite 2) Altered nutrition related lab values aeb hypocalcemia, hyperbilirubinemia, elev LFTs, severe hypoalbuminemia r/t current medical condition Comments: Will continue to monitor PO intake, PN tolerance, skin status. F/u mod 2-3 days Rec: 1) advance PN support to meet > 75% of needs if PO continues to be low. 2) consider ensure enlive 1 carton bid. 3) Continue current plan of care
--- NOTE | 2020-07-24 12:11 | NUR ---
Dr. Shafer at bedside, encouraging patient to eat and updating on POC.
[2020-07-24] MEDS: SODIUM FERR GLUC 62.5MG/5ML 125 MG in SODIUM CHL 0.9% 100 ML IV SCH (12:24)
[2020-07-24 13:00] VITALS: BP 117/68
[2020-07-24] MEDS: HYDROmorphone HCL 2 MG/ML VL IV PRN (15:11)
[2020-07-24 17:00] VITALS: BP 112/63
--- NOTE | 2020-07-24 18:47 | NUR ---
Closing shift note Patient is comfortably resting in bed, breath sounds even and unlabored. No s/s of distress noted/stated. Bed at lowest locked position and call light within reach. Will endorse care to NOC RN.
[2020-07-24] MEDS ORDERED: PPN PER PHARMACY IV NR ×8 (20:00)
--- NOTE | 2020-07-24 21:15 | NUR ---
Patient reporting 3/10 back pain to this RN, patient refusing ordered Dilaudid at this time, requesting ordered Tylenol, will administer as ordered and continue to monitor.
[2020-07-24] MEDS: ACETAMINOPHEN 325 MG TAB PO PRN (21:16)
--- NOTE | 2020-07-24 22:00 | NUR ---
Blood pressure 93/56 mmHg with 105 heart rate. Holding ordered Spirolactone at this time, hospitalist paged to notify, awaiting call back at this time.
--- NOTE | 2020-07-24 22:09 | NUR ---
Return call from dining car conductor hospitalist Mara Raya HTML DEVELOPER, no new orders received, will continue care.
[2020-07-24 22:10] VITALS: BP 93/56
[2020-07-25] MEDS: ACCU-CHEK COMFORT CURVE STRIP VI SCH ×5 (00:01→23:30)
[2020-07-25] MEDS: HYDROmorphone HCL 2 MG/ML VL IV PRN ×4 (02:07→21:27)
[2020-07-25] MEDS: MEROPENEM 1GM IVPB 100 ML IV SCH ×3 (04:40→21:25)
[2020-07-25 05:00] VITALS: BP 97/59
[2020-07-25] MEDS: InsuLIN REG 1unit/0.01ml Soln (100units/ml) SC SCH ×4 (06:00→17:28)
--- NOTE | 2020-07-25 06:39 | NUR ---
Closing Note Patient lying in bed, awake and alert. No s/s of distress. Call light within reach. Will endorse care to dayshift RN.
[2020-07-25] MEDS: METOCLOPRAMIDE HCL 5MG/ml INJ 2ml VIAL IV SCH ×3 (06:43→21:25)
[2020-07-25] MEDS: SUCRALFATE 1 GM/10 ML ORAL SUSP PO SCH ×4 (06:44→21:26)
--- NOTE | 2020-07-25 06:56 | NUR ---
Regarding lab draw Attempted lab draw from patient's midline, had difficulty withdrawing blood. Blood sugar reading attempted from blood pulled from line, glucometer showing patient's blood sugar well over 300. Blood sugar reading from finger poke at 97. Replanting Machine Crewman willing to accept blood, but made aware blood draw likely inaccurate and will need to be drawn again. Replanting Machine Crewman verbalized understanding. Daystr RN aware.
[2020-07-25 07:50] LABS: Basophils # (auto) 0.2 10 ^3/uL (0-0.2); Basophils % (auto) 1.4 % (0.0-2.0); Mean Corpuscular Volume 120.3 fL (80.0-100.0)
[2020-07-25 07:52] LABS: Eosinophils # (auto) 0.1 10 ^3/uL (0-0.8); Eosinophils % (auto) 0.4 % (0.0-7.0); Hemoglobin 7.1 g/dL (12.2-16.2); Lymphocytes # (auto) 3.5 10 ^3/uL (0.4-5.4); Lymphocytes % (auto) 20.8 % (10.0-50.0); Mean Corpuscular Hemoglobin 37.4 pg (28.0-32.0); Mean Corpuscular Hgb Conc. 31.1 g/dL (32.0-36.0); Monocytes # (auto) 1.2 10 ^3/uL (0-1.3); Monocytes % (auto) 6.9 % (0.0-12.0); Neutrophils # (auto) 11.9 10 ^3/uL (1.6-8.6); Neutrophils % (auto) 70.5 % (37.0-80.0); Nucleated Red Blood Cells % 0.2 %; Platelet Count (auto) 128 10^3/uL (140-450); Red Blood Cells 1.91 10^6/uL (4.0-5.20); White Blood Cell 16.9 10^3/uL (4.4-10.8)
[2020-07-25 07:59] LABS: Red Cell Distribution Width 23.7 % (11.8-14.3)
[2020-07-25] MEDS: Pro-Stat SF 30ml Vanilla PO SCH ×2 (08:00→18:09)
[2020-07-25 08:05] LABS: Calcium 7.3 mg/dL (8.5-10.1); Magnesium 2.5 mg/dL (1.6-2.6); Potassium 4.9 mmol/L (3.5-5.1)
[2020-07-25 08:10] LABS: BUN/Creatinine Ratio 29.4; Bilirubin, Total 2.4 mg/dL (0.2-1.0); Phosphorus 4.9 mg/dL (2.5-4.90); Total Protein 6.2 g/dL (6.4-8.2)
[2020-07-25 09:00] VITALS: BP 103/60
[2020-07-25] MEDS: PANTOPRAZOLE 40 MG/10 ML VIAL INJ IV SCH ×2 (11:00→21:25)
[2020-07-25] MEDS: FLUCONAZOLE 200MG/100ML 100 ML IV SCH (11:00)
[2020-07-25] MEDS: FOLIC ACID 1 MG TAB PO SCH (11:00)
[2020-07-25] MEDS: THIAMINE HCL 100 MG TAB PO SCH (11:01)
[2020-07-25] MEDS: SPIRONOLACTONE 25 MG TAB PO SCH ×2 (11:01→21:26)
[2020-07-25] MEDS: FUROSEMIDE 40 MG TAB PO SCH (11:02)
[2020-07-25] MEDS: PARoxetine 20 MG TAB PO SCH (11:02)
[2020-07-25] MEDS: SODIUM FERR GLUC 62.5MG/5ML 125 MG in SODIUM CHL 0.9% 100 ML IV SCH (13:00)
[2020-07-25 13:06] VITALS: BP 102/56
[2020-07-25 13:49] LABS: Albumin 1.1 g/dL (3.4-5.0); Potassium 4.4 mmol/L (3.5-5.1)
[2020-07-25 13:51] LABS: BUN/Creatinine Ratio 26.8
[2020-07-25 13:54] LABS: Bilirubin, Total 2.7 mg/dL (0.2-1.0); Phosphorus 2.8 mg/dL (2.5-4.90); Total Protein 6.8 g/dL (6.4-8.2)
--- NOTE | 2020-07-25 14:29 | NUR ---
Opening Shift Note Assumed care of patient, comfortably resting in bed. Breath sounds even and unlabored. No S/S of distress/SOB or pain. Patient has generalized weakness and poor appetite. Bilateral upper/lower extremity edema noted. Patient is a maximum assist with ADL's, on specialty mattress. Instructed on POC and to call for assist PRN, will continue to monitor for changes Q1hr and PRN.
--- NOTE | 2020-07-25 15:32 | NUR ---
BM Patient had a small bowel movement, cleansed patient and changed bed linen with help from BRADLEY Mitchell. Patient tolerated well. Will continue to monitor.
[2020-07-25 17:16] VITALS: BP_SYST 134; BP_SYST 160; BP_DIAS 66; BP_DIAS 70
[2020-07-25] MEDS ORDERED: POTASSIUM PHOSPHATE IV ONE (20:00)
[2020-07-25] MEDS ORDERED: D5W 5% IV ONE (20:00)
[2020-07-25] MEDS ORDERED: PPN PER PHARMACY IV NR ×7 (20:00)
[2020-07-25 21:35] VITALS: BP 106/60
--- NOTE | 2020-07-25 22:05 | NUR ---
Patient transferred to room 274 A without incident. All belongings with patient in new room. Patient tolerated well. Will continue care.
[2020-07-26] MEDS: HYDROmorphone HCL 2 MG/ML VL IV PRN ×2 (02:02→11:59)
--- NOTE | 2020-07-26 03:00 | NUR ---
IV removal and insertion IV DC'd with clean sterile technique, catheter fully intact. Pressure dressing applied to site. Patient tolerated well. IV access obtained, via clean sterile technique by inserting 22 gauge catheter to patient's right wrist after one attempt by Mary DOSHI. IV secured properly. No trauma to site. Patient tolerated well. Addendum: 07/26/20 at 0323 by DENYS GARCIA RN RN CORRECTION: Preious IV accidentally discontinued by patient while sleep. Catheter noted to be intact and pressure dressing applied to site.
[2020-07-26] MEDS: MEROPENEM 1GM IVPB 100 ML IV SCH ×2 (04:00→12:52)
[2020-07-26 04:39] VITALS: BP 109/63
[2020-07-26] MEDS: InsuLIN REG 1unit/0.01ml Soln (100units/ml) SC SCH ×3 (06:00→12:55)
[2020-07-26] MEDS: ACCU-CHEK COMFORT CURVE STRIP VI SCH ×2 (06:10→12:55)
[2020-07-26] MEDS: SUCRALFATE 1 GM/10 ML ORAL SUSP PO SCH ×4 (06:10→20:56)
[2020-07-26] MEDS: METOCLOPRAMIDE HCL 5MG/ml INJ 2ml VIAL IV SCH ×3 (06:10→20:55)
--- NOTE | 2020-07-26 06:56 | NUR ---
Closing Note Patient lying in bed, eyes closed, respirations even and unlabored, appears asleep. Patient awakens to name and touch. No s/s of distress. Call light within reach. Will endorse care to dayshift RN.
[2020-07-26 07:31] LABS: Basophils # (auto) 0.1 10 ^3/uL (0-0.2); Basophils % (auto) 0.8 % (0.0-2.0); Eosinophils # (auto) 0.1 10 ^3/uL (0-0.8); Neutrophils # (auto) 12.3 10 ^3/uL (1.6-8.6)
[2020-07-26 07:32] LABS: Eosinophils % (auto) 0.7 % (0.0-7.0); Hematocrit 28.1 % (36.0-46.0); Hemoglobin 8.3 g/dL (12.2-16.2); Lymphocytes # (auto) 3.6 10 ^3/uL (0.4-5.4); Lymphocytes % (auto) 20.2 % (10.0-50.0); Mean Corpuscular Hemoglobin 36.9 pg (28.0-32.0); Mean Corpuscular Hgb Conc. 29.6 g/dL (32.0-36.0); Mean Corpuscular Volume 124.8 fL (80.0-100.0); Monocytes # (auto) 1.8 10 ^3/uL (0-1.3); Monocytes % (auto) 9.8 % (0.0-12.0); Neutrophils % (auto) 68.5 % (37.0-80.0); Nucleated Red Blood Cells % 0.2 %; Platelet Count (auto) 118 10^3/uL (140-450); Red Blood Cells 2.25 10^6/uL (4.0-5.20); White Blood Cell 17.9 10^3/uL (4.4-10.8)
[2020-07-26 07:46] LABS: Albumin 1.1 g/dL (3.4-5.0); Calcium 7.7 mg/dL (8.5-10.1); Magnesium 2.4 mg/dL (1.6-2.6); Potassium 4.5 mmol/L (3.5-5.1)
[2020-07-26 07:49] LABS: BUN/Creatinine Ratio 28.3; Bilirubin, Total 2.8 mg/dL (0.2-1.0); Total Protein 6.8 g/dL (6.4-8.2)
[2020-07-26 08:36] VITALS: BP 93/64
[2020-07-26] MEDS: Pro-Stat SF 30ml Vanilla PO SCH ×2 (08:41→17:58)
--- NOTE | 2020-07-26 08:42 | NUR ---
Patient resting comfortably in bed with no complaint of pain at this time. Patient stable.
[2020-07-26] MEDS: THIAMINE HCL 100 MG TAB PO SCH (11:13)
[2020-07-26] MEDS: PANTOPRAZOLE 40 MG/10 ML VIAL INJ IV SCH (11:13)
[2020-07-26] MEDS: FOLIC ACID 1 MG TAB PO SCH (11:14)
[2020-07-26] MEDS: FLUCONAZOLE 200MG/100ML 100 ML IV SCH (11:14)
[2020-07-26] MEDS: PARoxetine 20 MG TAB PO SCH (11:14)
[2020-07-26] MEDS: FUROSEMIDE 40 MG TAB PO SCH ×2 (11:15→11:58)
[2020-07-26] MEDS: SPIRONOLACTONE 25 MG TAB PO SCH ×4 (11:15→21:10)
--- NOTE | 2020-07-26 11:15 | NUR ---
Scheduled medications given per order. Patient stable.
--- NOTE | 2020-07-26 12:00 | NUR ---
Patient medicated for 7/10 back pain. Patient stable.
--- NOTE | 2020-07-26 12:55 | NUR ---
Checked blood sugar: 102 mg/dl - no coverage required. Scheduled IV abx given as well. Patient stable.
[2020-07-26 13:00] VITALS: BP 105/67
--- NOTE | 2020-07-26 13:10 | NUR ---
Patient stable with Dr. Trimble at bedside.
--- NOTE | 2020-07-26 13:35 | NUR ---
Scheduled IVP med given per order. Patient stable.
--- NOTE | 2020-07-26 14:49 | NUR ---
Nutrition Followup Note Wt: 93.1 kg Pt was awake very weak, lethargic and unable to respond well to any questions at time of rounds. Pt is currently on regular diet with inadequate PO intake aeb ave 10% x 2days per RN doc. Pt is also with PN support @ 70 ml/hr providing 964 kcals, 80 gm proteins and 644 NPCs. PN support meets 54-59% of est energy needs and 113-140% of est protein needs. Est Energy needs: 8535-0496 kcals (23-25 kcal/kgBW), Est Protein needs: 57-71 gms/day (1.0-1.3gm/kgBW r/t hypoalb). Will continue to monitor and reassess prn. Labs: ALB 1.1 L, CA 7.7 L, YIFAN 2.8, Gluc 68 L, AST 197 H BM: Pt with incontinence per RN note Skin: BS 16 mod risk, full details in doggy daycare activities director note PES: 1) Inadequate oral intake aeb ave 42% PO intake r/t pt with a poor appetite 2) Altered nutrition related lab values aeb hypocalcemia, hyperbilirubinemia, elev LFTs, severe hypoalbuminemia r/t current medical condition Comments: Will continue to monitor PO intake, PN tolerance, skin status. F/u mod 2-3 days Rec: 1) Advance PN support to meet > 75% of needs if PO continues to be low. 2) Consider ensure enlive 1 carton bid. 3) Continue current plan of care
[2020-07-26 16:18] VITALS: BP 97/61
--- NOTE | 2020-07-26 17:59 | NUR ---
Scheduled medication given per order. Patient sitting in bed; ready to eat dinner. Patient stable.
[2020-07-26] MEDS: SODIUM FERR GLUC 62.5MG/5ML 125 MG in SODIUM CHL 0.9% 100 ML IV SCH (19:59)
[2020-07-26] MEDS ORDERED: PPN PER PHARMACY IV NR ×8 (20:00)
[2020-07-26] MEDS: PANTOPRAZOLE 40 MG TAB PO SCH (20:56)
[2020-07-26] MEDS: ACETAMINOPHEN 325 MG TAB PO PRN (20:57)
[2020-07-26 21:00] VITALS: BP 102/67
--- NOTE | 2020-07-27 02:20 | NUR ---
end of shift note endorse pt care to date night caregiver Allison RN pt [id number], no s/s of distress or sob
--- NOTE | 2020-07-27 02:23 | NUR ---
Opening Shift Note Assumed care of patient, awake and alert. No S/S of distress/SOB or pain. Patient incontinence of urine, linen change done and patient cleaned. Instructed on POC and to call for assist PRN, will continue to monitor for changes Q1hr and PRN. bed in low position and call light within reach.
[2020-07-27] MEDS: ACETAMINOPHEN 325 MG TAB PO PRN (03:40)
--- NOTE | 2020-07-27 03:56 | NUR ---
patient incontinence of urine. patient cleaned and zgaurd applied sacrum. fall precautions in place
[2020-07-27 05:00] VITALS: BP 112/59
[2020-07-27] MEDS: METOCLOPRAMIDE HCL 5MG/ml INJ 2ml VIAL IV SCH (05:34)
[2020-07-27] MEDS: SUCRALFATE 1 GM/10 ML ORAL SUSP PO SCH ×2 (06:25→10:42)
--- NOTE | 2020-07-27 07:10 | NUR ---
report given to dayshift rn patient denies sob distress or pain. awake and alert
[2020-07-27 07:49] LABS: Hemoglobin 7.8 g/dL (12.2-16.2); Lymphocytes # (auto) 2.8 10 ^3/uL (0.4-5.4); Monocytes # (auto) 1.1 10 ^3/uL (0-1.3); Neutrophils # (auto) 11.7 10 ^3/uL (1.6-8.6); White Blood Cell 15.8 10^3/uL (4.4-10.8)
[2020-07-27 07:57] LABS: Basophils # (auto) 0.1 10 ^3/uL (0-0.2); Basophils % (auto) 0.9 % (0.0-2.0); Eosinophils # (auto) 0.1 10 ^3/uL (0-0.8); Eosinophils % (auto) 0.6 % (0.0-7.0); Hematocrit 24.7 % (36.0-46.0); Lymphocytes % (auto) 17.8 % (10.0-50.0); Mean Corpuscular Hemoglobin 38.1 pg (28.0-32.0); Mean Corpuscular Hgb Conc. 31.6 g/dL (32.0-36.0); Mean Corpuscular Volume 120.5 fL (80.0-100.0); Neutrophils % (auto) 73.7 % (37.0-80.0); Nucleated Red Blood Cells % 0.2 %; Red Blood Cells 2.05 10^6/uL (4.0-5.20)
[2020-07-27 07:58] LABS: Potassium 4.1 mmol/L (3.5-5.1)
[2020-07-27 08:03] LABS: Red Cell Distribution Width 23.4 % (11.8-14.3)
[2020-07-27 08:07] LABS: Albumin 1.1 g/dL (3.4-5.0); BUN/Creatinine Ratio 27.9; Bilirubin, Total 2.9 mg/dL (0.2-1.0); Calcium 7.8 mg/dL (8.5-10.1); Total Protein 6.6 g/dL (6.4-8.2)
[2020-07-27] MEDS: Pro-Stat SF 30ml Vanilla PO SCH (08:10)
--- NOTE | 2020-07-27 08:10 | NUR ---
Patient resting comfortably in bed with no complaint of any pain. Patient stable.
[2020-07-27 09:00] VITALS: BP 118/63
[2020-07-27] MEDS: SPIRONOLACTONE 25 MG TAB PO SCH (09:22)
[2020-07-27] MEDS: PARoxetine 20 MG TAB PO SCH (09:23)
[2020-07-27] MEDS: THIAMINE HCL 100 MG TAB PO SCH (09:23)
[2020-07-27] MEDS: PANTOPRAZOLE 40 MG TAB PO SCH (09:23)
[2020-07-27] MEDS: FOLIC ACID 1 MG TAB PO SCH (09:24)
[2020-07-27] MEDS: FUROSEMIDE 40 MG TAB PO SCH (09:24)
--- NOTE | 2020-07-27 09:25 | NUR ---
Scheduled medications given per order. Patient resting comfortably in bed with no distress noted. Patient stable at this time.
[2020-07-27] MEDS ORDERED: FLUCONAZOLE 100 MG TAB PO SCH (10:00)
[2020-07-27] MEDS ORDERED: FLUC100T34 PO (10:03)
[2020-07-27] MEDS ORDERED: THIA100T10 PO (10:03)
[2020-07-27] MEDS ORDERED: FER325T PO (10:03)
[2020-07-27] MEDS ORDERED: SPIR25TA88 PO (10:03)
[2020-07-27] MEDS ORDERED: SUCR1TAB22 PO (10:03)
[2020-07-27] MEDS ORDERED: PAR20T PO (10:03)
[2020-07-27] MEDS ORDERED: FURO40TA4 PO (10:03)
--- NOTE | 2020-07-27 10:06 | NUR ---
D/C Planning Per social service consult for home health for physical therapy. [facility], [facility] and [facility]. Per Martha with [facility] patient has been accepted and service to start within 24-48hrs upon d.c day.
--- NOTE | 2020-07-27 10:43 | NUR ---
Scheduled medication given per order. Patient stable at this time.
--- NOTE | 2020-07-27 12:25 | NUR ---
Scheduled IV medication given per order. Patient resting quietly in bed with no distress noted. Patient stable.
[2020-07-27] MEDS: SODIUM FERR GLUC 62.5MG/5ML 125 MG in SODIUM CHL 0.9% 100 ML IV SCH (12:26)
[2020-07-27 13:00] VITALS: BP 118/70
[2020-07-27 13:30] VITALS: BP 118/70
--- NOTE | 2020-07-27 14:55 | NUR ---
Discharge instructions Both written and verbal discharge instructions given to patient. Also encouraged patient to eat more to maintain and improve strength, explained the importance of moving and participating in physical therapy. Patient verbalized understanding of instructions. Midline and peripheral IV removed intact with minimal bleeding; sites covered with gauze. Patient tolerated well. All belongings with patient.
--- NOTE | 2020-07-27 15:05 | NUR ---
Discharge Pictures taken of wounds. Patient discharged to home in stable condition. DME taken home included walker and bedside commode.
== END 2020-07-27 16:00 | disposition home health service (06) | DRG 871 ==
LOC: ER 15:50 → TELE 15:51 → EDBD 15:51 → ICU WEST 07-02 03:06 → DOU IN ICU 07-04 06:09 → TELE-WESTW 07-05 22:10 → WEST WING 07-14 04:26
PROVIDERS: ADMIT Internal Medicine; ATTEND Internal Medicine
PROC: 3E0336Z Introduction of Nutritional Substance into Peripheral Vein, Percutaneous Approach (ICD-10-PCS; principal; 2020-07-17)
DX: A41.9 Sepsis, unspecified organism (principal); E43 Unspecified severe protein-calorie malnutrition; G92 Toxic encephalopathy; N17.0 Acute kidney failure with tubular necrosis; R65.21 Severe sepsis with septic shock; B37.49 Other urogenital candidiasis; D68.9 Coagulation defect, unspecified; J90 Pleural effusion, not elsewhere classified; J98.11 Atelectasis; D50.9 Iron deficiency anemia, unspecified; D63.8 Anemia in other chronic diseases classified elsewhere; F10.10 Alcohol abuse, uncomplicated; F32.9 Major depressive disorder, single episode, unspecified; K21.9 Gastro-esophageal reflux disease without esophagitis; K59.00 Constipation, unspecified; K72.90 Hepatic failure, unspecified without coma; Z90.49 Acquired absence of other specified parts of digestive tract; Z98.84 Bariatric surgery status; G62.9 Polyneuropathy, unspecified; R16.0 Hepatomegaly, not elsewhere classified; I95.9 Hypotension, unspecified; Z91.040 Latex allergy status; K70.31 Alcoholic cirrhosis of liver with ascites; D69.6 Thrombocytopenia, unspecified; E87.6 Hypokalemia; Z20.828 Contact with and (suspected) exposure to other viral communicable diseases
CPT/HCPCS: 36415; 36600; 51702; 70450; 71045; 74176; 74177; 74246; 76705; 80048; 80053; 80307; 80320; 81001; 82040; 82140; 82248; 82607; 82728; 82746; 82805; 82962; 83010; 83540; 83550; 83605; 83615; 83690; 83735; 84100; 84443; 84478; 84484; 84702; 85007; 85025; 85027; 85045; 85060; 85610; 85730; 86880; 87040; 87081; 87086; 87088; 87426; 87493; 93005; 93970; 96361; 96365; 97110; 97116; 97530; 99291; C9113; G0378; J0696; J1450; J1756; J1815; J2185; J2405; J2543; J3430; J3480; J7060; J7131

== ENCOUNTER 2020-08-11 16:46 | Inpatient (IN) | payer OTHER, MEDICAID ==
[~2020-08-11] VITALS: Ht 167.6 cm; Wt 93.7 kg
[~2020-08-11 16:46] MED LIST: CYCL7.5T45 PO; FER325T PO; FLUC100T34 PO; FURO40TA4 PO; GABA250S2 PO; PAR20T PO; SPIR25TA88 PO; SUCR1TAB22 OR; SUCR1TAB22 PO; THIA100T10 PO
[2020-08-11] MEDS ORDERED: DEXTROSE 10% 1,000 ML IV ONE (19:15)
[2020-08-11 19:24] LABS: Hematocrit 25.5 % (36.0-46.0); Mean Corpuscular Hemoglobin 34.8 pg (28.0-32.0); Mean Corpuscular Hgb Conc. 31.5 g/dL (32.0-36.0); Mean Corpuscular Volume 110.6 fL (80.0-100.0); Platelet Count (auto) 321 10^3/uL (140-450); Red Blood Cells 2.31 10^6/uL (4.0-5.20); Red Cell Distribution Width 18.5 % (11.8-14.3); White Blood Cell 28.7 10^3/uL (4.4-10.8)
[2020-08-11 19:26] LABS: Basophils % (manual) 0 (0.0-2.0); Blast Cells 0; Metamyelocytes % 0; Myelocytes % 0; Promyelocytes % 0; Reactive Lymphocytes 0
[2020-08-11] MEDS ORDERED: LIDOCAINE 2% JELLY 11ml (GLYDO) ONE (19:36)
[2020-08-11 19:45] LABS: Blood Urea Nitrogen 16 mg/dL (7-18); Calcium 7.4 mg/dL (8.5-10.1); Chloride 113 mmol/L (98-107); Potassium 3.4 mmol/L (3.5-5.1); Sodium 140 mmol/L (136-145)
[2020-08-11] MEDS ORDERED: ONDANSETRON HCL 4 MG/2 ML VIAL IV ONE (19:45)
[2020-08-11] MEDS ORDERED: SODIUM CHLORIDE 0.9% 1,000 ML IV ONE (19:45)
[2020-08-11] MEDS ORDERED: MORPHINE SULFATE 4 MG/ML SYR/VIAL IV ONE (19:45)
[2020-08-11 19:48] LABS: Anion Gap 9 (5-15); BUN/Creatinine Ratio 11.1; Carbon Dioxide 18 mmol/L (21-32); GFR African American 52 mL/min; GFR Non-African American 43 mL/min; Glucose 64 mg/dL (74-106)
[2020-08-11 19:53] LABS: Alanine Aminotransferase 22 U/L (13-56); Alkaline Phosphatase 149 U/L (45-117); Aspartate Aminotransferase 123 U/L (15-37); Bilirubin, Total 5.5 mg/dL (0.2-1.0); Total Protein 7.1 g/dL (6.4-8.2)
[2020-08-11] MEDS ORDERED: LIDOCAINE 2% JELLY 11ml (GLYDO) UR ONE (20:00)
[2020-08-11] MEDS ORDERED: PIPERACILLIN-TAZOB 3.375GM 100 ML IV ONE ×2 (20:15→20:38)
[2020-08-11 20:59] LABS: Band Neutrophils % (manual) 13; Eosinophils % (manual) 2 (0-7); Lymphocytes % (manual) 13 (10.0-50.0); Monocytes % (manual) 8 (0-12)
[2020-08-11] MEDS ORDERED: ONDANSETRON HCL 4 MG/2 ML VIAL IV PRN (23:00)
[2020-08-11] MEDS ORDERED: levoFLOXacin 500MG 100 ML IV ONE (23:00)
[2020-08-11] MEDS ORDERED: LACTULOSE 20Gm/30ML SOLN PO ONE (23:00)
[2020-08-11] MEDS ORDERED: NITROGLYCERIN 0.4 MG SL TAB SL PRN (23:00)
[2020-08-11] MEDS ORDERED: MORPHINE SULF INJ 2 MG/ML SYRINGE 1ML IV PRN (23:00)
[2020-08-11] MEDS ORDERED: POTASSIUM CHL 20 Meq TABLET PO ONE (23:00)
[2020-08-11 23:27] LABS: Urine Amorphous Crystal FEW /hpf (None Seen); Urine Bacteria FEW /hpf (None Seen); Urine Blood Negative /uL (Negative); Urine Hyaline Cast MANY /lpf (0 - 2); Urine Mucus FEW (None Seen); Urine WBC 3 /hpf (0 - 5)
[2020-08-12] MEDS ORDERED: POTASSIUM EFFERVESENT TAB 25 MEQ ONE (01:40)
[2020-08-12] MEDS ORDERED: POTASSIUM EFFERVESENT TAB 25 MEQ PO ONE (01:45)
[2020-08-12] MEDS: DEXTROSE 10% 1,000 ML IV SCH ×2 (01:49→18:39)
[2020-08-12 07:14] LABS: Hemoglobin 8.6 g/dL (12.2-16.2)
[2020-08-12 07:17] LABS: Hematocrit 26.8 % (36.0-46.0); Mean Corpuscular Hemoglobin 34.6 pg (28.0-32.0); Mean Corpuscular Hgb Conc. 32.2 g/dL (32.0-36.0); Mean Corpuscular Volume 107.4 fL (80.0-100.0); Red Blood Cells 2.49 10^6/uL (4.0-5.20); Red Cell Distribution Width 18.2 % (11.8-14.3)
[2020-08-12 07:34] LABS: White Blood Cell 30.7 10^3/uL (4.4-10.8)
[2020-08-12 07:35] LABS: Basophils % (manual) 0 (0.0-2.0); Blast Cells 0; Myelocytes % 0; Promyelocytes % 0; Reactive Lymphocytes 0
[2020-08-12 07:36] LABS: Potassium 3.2 mmol/L (3.5-5.1)
[2020-08-12 07:44] LABS: Albumin 1.1 g/dL (3.4-5.0); BUN/Creatinine Ratio 10.5; Bilirubin, Total 5.8 mg/dL (0.2-1.0); Calcium 7.3 mg/dL (8.5-10.1); Total Protein 7.1 g/dL (6.4-8.2)
[2020-08-12 07:53] LABS: Band Neutrophils % (manual) 4; Eosinophils % (manual) 2 (0-7); Lymphocytes % (manual) 13 (10.0-50.0); Metamyelocytes % 1; Monocytes % (manual) 10 (0-12)
[2020-08-12 07:58] LABS: Platelet Count (auto) 323 10^3/uL (140-450)
[2020-08-12 09:00] VITALS: BP 93/48
[2020-08-12] MEDS ORDERED: FAMOTIDINE 20 MG TAB PO SCH ×2 (10:00)
[2020-08-12] MEDS ORDERED: LACTULOSE 20Gm/30ML SOLN PO SCH (10:00)
[2020-08-12] MEDS ORDERED: levoFLOXacin 250MG 50 ML IV SCH (10:00)
[2020-08-12] MEDS ORDERED: levoFLOXacin 500MG 100 ML IV SCH (10:00)
[2020-08-12] MEDS: metroNIDAZOLE 500MG/100ML 100 ML IV SCH ×2 (12:42→21:43)
[2020-08-12 13:00] VITALS: BP 98/49
[2020-08-12] MEDS ORDERED: POTASSIUM CHLORIDE 20 MEQ, LIDOCAINE 1% (LOCAL ANESTH.) 2 ML in SODIUM CHL 0.9% 100 ML IV ONE (13:30)
[2020-08-12] MEDS ORDERED: cefTRIAXone 1GM/50ML D5W 50 ML IV ONE (13:30)
[2020-08-12] MEDS: LACTULOSE 20Gm/30ML SOLN PO SCH ×2 (15:01→21:44)
[2020-08-12 17:44] VITALS: BP 84/96
[2020-08-12] MEDS ORDERED: MIDODRINE HCL 10 MG TAB PO ONE (18:00)
[2020-08-12 18:40] VITALS: BP 88/54
[2020-08-12] MEDS: FAMOTIDINE (10MG/ML) 2ML VL IV SCH (21:44)
[2020-08-12 22:00] VITALS: BP 91/40
[2020-08-13] VITALS (8 sets, daily range): BP systolic 87–112; BP diastolic 37–55
[2020-08-13 06:09] LABS: Hematocrit 24.4 % (36.0-46.0); Mean Corpuscular Hemoglobin 35.3 pg (28.0-32.0); Mean Corpuscular Volume 106.9 fL (80.0-100.0); Red Blood Cells 2.28 10^6/uL (4.0-5.20); Red Cell Distribution Width 17.8 % (11.8-14.3)
[2020-08-13] MEDS: metroNIDAZOLE 500MG/100ML 100 ML IV SCH ×3 (06:12→22:57)
[2020-08-13] MEDS: LACTULOSE 20Gm/30ML SOLN PO SCH (06:13)
[2020-08-13 06:15] LABS: Basophils % (manual) 0 (0.0-2.0); Blast Cells 0; Metamyelocytes % 0; Myelocytes % 0; Promyelocytes % 0; Reactive Lymphocytes 0
[2020-08-13 06:23] LABS: INR 2.16 (0.9-1.15); Partial Thromboplastin Time 50.5 sec (23.0-31.2)
[2020-08-13 06:35] LABS: BUN/Creatinine Ratio 9.4; Bilirubin, Total 5.1 mg/dL (0.2-1.0); Calcium 7.4 mg/dL (8.5-10.1); Total Protein 6.5 g/dL (6.4-8.2)
[2020-08-13 06:38] LABS: Potassium 2.8 mmol/L (3.5-5.1)
[2020-08-13 07:36] LABS: Band Neutrophils % (manual) 3; Eosinophils % (manual) 3 (0-7); Lymphocytes % (manual) 13 (10.0-50.0); Monocytes % (manual) 3 (0-12)
[2020-08-13 07:39] LABS: Platelet Count (auto) 302 10^3/uL (140-450)
[2020-08-13] MEDS ORDERED: cefTRIAXone 1GM/50ML D5W 50 ML IV SCH (09:00)
[2020-08-13] MEDS ORDERED: POTASSIUM CHL 20MEQ/100ML 100 ML IV SCH (09:00)
[2020-08-13] MEDS: FOLIC ACID 1 MG TAB PO SCH (09:38)
[2020-08-13] MEDS: rifAXIMin 550 MG TAB PO SCH ×2 (09:54→22:57)
[2020-08-13] MEDS: MULTIPLE VITAMIN TAB PO SCH (09:54)
[2020-08-13] MEDS: THIAMINE HCL 100 MG TAB PO SCH (10:00)
[2020-08-13] MEDS ORDERED: PHYTONADIONE (VIT K)10 MG/ML 1ML VIAL SUBCUT ONE (11:15)
[2020-08-13] MEDS ORDERED: POTASSIUM CHLORIDE 20 MEQ, LIDOCAINE 1% (LOCAL ANESTH.) 2 ML in SODIUM CHL 0.9% 100 ML IV ONE (11:45)
[2020-08-13] MEDS ORDERED: POTASSIUM CHLORIDE 60 MEQ, LIDOCAINE 1% (LOCAL ANESTH.) 6 ML in SODIUM CHL 0.9% 500 ML IV ONE (11:45)
[2020-08-13] MEDS: Ensure HIGH Protein Chocolate 8oz Bottle PO SCH ×2 (12:00→20:17)
[2020-08-13] MEDS: MIDODRINE HCL 10 MG TAB PO PRN (17:51)
[2020-08-13] MEDS: DEXTROSE 10% 1,000 ML IV SCH (20:18)
[2020-08-13] MEDS: VANCOMYCIN HCL 125MG/5ML ORAL SOL PO SCH ×3 (20:31→22:00)
[2020-08-13] MEDS: FAMOTIDINE (10MG/ML) 2ML VL IV SCH (22:57)
[2020-08-14] MEDS: LORazepam 2MG/ML-1ML VIAL IV PRN ×2 (01:25→20:47)
[2020-08-14 05:00] VITALS: BP 86/51
[2020-08-14] MEDS: MIDODRINE HCL 10 MG TAB PO PRN (05:56)
[2020-08-14] MEDS: metroNIDAZOLE 500MG/100ML 100 ML IV SCH ×3 (05:57→20:48)
[2020-08-14] MEDS: VANCOMYCIN HCL 125MG/5ML ORAL SOL PO SCH ×4 (05:57→20:48)
[2020-08-14 06:32] LABS: Hematocrit 26.6 % (36.0-46.0); Mean Corpuscular Hemoglobin 34.1 pg (28.0-32.0); Mean Corpuscular Hgb Conc. 30.2 g/dL (32.0-36.0); Mean Corpuscular Volume 112.7 fL (80.0-100.0); Platelet Count (auto) 261 10^3/uL (140-450); Red Blood Cells 2.36 10^6/uL (4.0-5.20); Red Cell Distribution Width 18.3 % (11.8-14.3); White Blood Cell 27.3 10^3/uL (4.4-10.8)
[2020-08-14 07:02] LABS: Calcium 7.3 mg/dL (8.5-10.1); Potassium 3.6 mmol/L (3.5-5.1)
[2020-08-14 07:05] LABS: BUN/Creatinine Ratio 9.6
[2020-08-14 07:08] LABS: Basophils % (manual) 0 (0.0-2.0); Blast Cells 0; Metamyelocytes % 0; Myelocytes % 0; Promyelocytes % 0; Reactive Lymphocytes 0
[2020-08-14] MEDS: Ensure HIGH Protein Chocolate 8oz Bottle PO SCH ×3 (08:13→18:00)
[2020-08-14 09:00] VITALS: BP 108/56
[2020-08-14] MEDS: MULTIPLE VITAMIN TAB PO SCH (09:30)
[2020-08-14] MEDS: FLORASTOR (S. BOULARDII) 250 MG CAP PO SCH (09:30)
[2020-08-14] MEDS: THIAMINE HCL 100 MG TAB PO SCH (09:30)
[2020-08-14] MEDS: FOLIC ACID 1 MG TAB PO SCH (09:30)
[2020-08-14] MEDS: rifAXIMin 550 MG TAB PO SCH ×2 (09:31→20:49)
[2020-08-14 14:39] LABS: Band Neutrophils % (manual) 5; Eosinophils % (manual) 3 (0-7); Lymphocytes % (manual) 13 (10.0-50.0); Monocytes % (manual) 1 (0-12)
[2020-08-14 17:00] VITALS: BP 113/61
[2020-08-14] MEDS: DEXTROSE 10% 1,000 ML IV SCH (17:42)
[2020-08-14] MEDS: MORPHINE SULF INJ 2 MG/ML SYRINGE 1ML IV PRN (18:08)
[2020-08-14] MEDS: FAMOTIDINE (10MG/ML) 2ML VL IV SCH (20:47)
[2020-08-14 22:00] VITALS: BP 110/60
[2020-08-15] MEDS: MORPHINE SULF INJ 2 MG/ML SYRINGE 1ML IV PRN (02:25)
[2020-08-15 05:00] VITALS: BP 99/59
[2020-08-15] MEDS: metroNIDAZOLE 500MG/100ML 100 ML IV SCH ×3 (05:20→21:51)
[2020-08-15] MEDS: VANCOMYCIN HCL 125MG/5ML ORAL SOL PO SCH ×4 (05:21→21:51)
[2020-08-15] MEDS: DEXTROSE 10% 1,000 ML IV SCH (07:30)
[2020-08-15] MEDS: Ensure HIGH Protein Chocolate 8oz Bottle PO SCH ×3 (08:00→17:32)
[2020-08-15 09:00] VITALS: BP 155/53
[2020-08-15] MEDS: MULTIPLE VITAMIN TAB PO SCH (10:00)
[2020-08-15] MEDS: FOLIC ACID 1 MG TAB PO SCH (10:00)
[2020-08-15] MEDS: THIAMINE HCL 100 MG TAB PO SCH (10:00)
[2020-08-15] MEDS: rifAXIMin 550 MG TAB PO SCH ×2 (10:04→21:51)
[2020-08-15] MEDS: FLORASTOR (S. BOULARDII) 250 MG CAP PO SCH (10:04)
[2020-08-15 12:42] VITALS: BP 138/66
[2020-08-15 17:00] VITALS: BP 134/68
[2020-08-15 21:00] VITALS: BP 93/51
[2020-08-15] MEDS: FAMOTIDINE (10MG/ML) 2ML VL IV SCH (21:51)
[2020-08-16 05:00] VITALS: BP 101/66
[2020-08-16] MEDS: VANCOMYCIN HCL 125MG/5ML ORAL SOL PO SCH ×4 (05:53→21:08)
[2020-08-16] MEDS: metroNIDAZOLE 500MG/100ML 100 ML IV SCH (05:53)
[2020-08-16 08:00] VITALS: BP 93/55
[2020-08-16] MEDS: Ensure HIGH Protein Chocolate 8oz Bottle PO SCH ×3 (08:00→21:29)
[2020-08-16 08:33] VITALS: BP 93/55
[2020-08-16] MEDS: FOLIC ACID 1 MG TAB PO SCH (10:30)
[2020-08-16] MEDS: rifAXIMin 550 MG TAB PO SCH ×2 (10:30→21:08)
[2020-08-16] MEDS: FLORASTOR (S. BOULARDII) 250 MG CAP PO SCH (10:30)
[2020-08-16] MEDS: THIAMINE HCL 100 MG TAB PO SCH (10:30)
[2020-08-16] MEDS: MULTIPLE VITAMIN TAB PO SCH (10:30)
[2020-08-16 13:00] VITALS: BP 100/60
[2020-08-16 13:55] LABS: Hepatitis A Ab IgM Negative; Hepatitis B Core IgM Negative; Hepatitis B Surface Antigen Negative (Negative); Hepatitis C Antibody Negative (Negative)
[2020-08-16 17:00] VITALS: BP 100/62
[2020-08-16] MEDS: MORPHINE SULF INJ 2 MG/ML SYRINGE 1ML IV PRN (18:44)
[2020-08-16] MEDS: FAMOTIDINE (10MG/ML) 2ML VL IV SCH (21:08)
[2020-08-16 22:00] VITALS: BP 100/56
[2020-08-17] VITALS (7 sets, daily range): BP systolic 95–101; BP diastolic 52–62
[2020-08-17] MEDS: MORPHINE SULF INJ 2 MG/ML SYRINGE 1ML IV PRN ×2 (02:03→22:21)
[2020-08-17] MEDS: VANCOMYCIN HCL 125MG/5ML ORAL SOL PO SCH ×4 (05:26→22:08)
[2020-08-17 05:45] LABS: Hematocrit 26.4 % (36.0-46.0); Red Blood Cells 2.51 10^6/uL (4.0-5.20)
[2020-08-17 05:49] LABS: Hemoglobin 8.5 g/dL (12.2-16.2); Mean Corpuscular Hemoglobin 33.9 pg (28.0-32.0); Mean Corpuscular Hgb Conc. 32.1 g/dL (32.0-36.0); Mean Corpuscular Volume 105.4 fL (80.0-100.0); Platelet Count (auto) 245 10^3/uL (140-450); Red Cell Distribution Width 17.8 % (11.8-14.3); White Blood Cell 27.5 10^3/uL (4.4-10.8)
[2020-08-17 05:57] LABS: Band Neutrophils % (manual) 0; Basophils % (manual) 0 (0.0-2.0); Blast Cells 0; Eosinophils % (manual) 0 (0-7); Metamyelocytes % 0; Promyelocytes % 0; Reactive Lymphocytes 0
[2020-08-17 06:06] LABS: Calcium 7.5 mg/dL (8.5-10.1); Potassium 3.4 mmol/L (3.5-5.1)
[2020-08-17 06:12] LABS: Bilirubin, Total 4.6 mg/dL (0.2-1.0); Total Protein 6.4 g/dL (6.4-8.2)
[2020-08-17 07:03] LABS: Lymphocytes % (manual) 20 (10.0-50.0); Monocytes % (manual) 2 (0-12); Myelocytes % 3
[2020-08-17] MEDS: Ensure HIGH Protein Chocolate 8oz Bottle PO SCH ×2 (08:00→12:00)
[2020-08-17] MEDS: rifAXIMin 550 MG TAB PO SCH ×2 (10:49→22:09)
[2020-08-17] MEDS: MULTIPLE VITAMIN TAB PO SCH (10:50)
[2020-08-17] MEDS: FLORASTOR (S. BOULARDII) 250 MG CAP PO SCH (10:50)
[2020-08-17] MEDS: FOLIC ACID 1 MG TAB PO SCH (10:50)
[2020-08-17] MEDS: THIAMINE HCL 100 MG TAB PO SCH (10:50)
[2020-08-17] MEDS ORDERED: POTASSIUM EFFERVESENT TAB 25 MEQ PO ONE (12:45)
[2020-08-17] MEDS: ENSURE CLEAR Apple 8oz Carton PO SCH (18:00)
[2020-08-17] MEDS: FAMOTIDINE (10MG/ML) 2ML VL IV SCH (22:08)
[2020-08-18] MEDS: MORPHINE SULF INJ 2 MG/ML SYRINGE 1ML IV PRN (02:29)
[2020-08-18 05:00] VITALS: BP 98/62
[2020-08-18] MEDS: VANCOMYCIN HCL 125MG/5ML ORAL SOL PO SCH ×4 (06:54→22:00)
[2020-08-18 09:00] VITALS: BP 104/58
[2020-08-18] MEDS: FOLIC ACID 1 MG TAB PO SCH (10:50)
[2020-08-18] MEDS: FLORASTOR (S. BOULARDII) 250 MG CAP PO SCH (10:50)
[2020-08-18] MEDS: MULTIPLE VITAMIN TAB PO SCH (10:50)
[2020-08-18] MEDS: ENSURE CLEAR Apple 8oz Carton PO SCH ×3 (10:50→18:33)
[2020-08-18] MEDS: LACTULOSE 20Gm/30ML SOLN PO SCH ×2 (10:50→21:59)
[2020-08-18] MEDS: rifAXIMin 550 MG TAB PO SCH ×2 (10:50→22:00)
[2020-08-18] MEDS: THIAMINE HCL 100 MG TAB PO SCH (10:51)
[2020-08-18] MEDS ORDERED: LACTULOSE 20Gm/30ML SOLN PO SCH (12:00)
[2020-08-18 17:00] VITALS: BP 96/60
[2020-08-18 21:00] VITALS: BP 94/60
[2020-08-18] MEDS: FAMOTIDINE (10MG/ML) 2ML VL IV SCH (21:59)
[2020-08-19 05:00] VITALS: BP 99/63
[2020-08-19 05:05] LABS: Hematocrit 30.9 % (36.0-46.0); Hemoglobin 9.4 g/dL (12.2-16.2); Mean Corpuscular Hemoglobin 32.9 pg (28.0-32.0); Mean Corpuscular Hgb Conc. 30.5 g/dL (32.0-36.0); Mean Corpuscular Volume 107.9 fL (80.0-100.0); Platelet Count (auto) 203 10^3/uL (140-450); Red Blood Cells 2.86 10^6/uL (4.0-5.20); Red Cell Distribution Width 18.1 % (11.8-14.3); White Blood Cell 29.8 10^3/uL (4.4-10.8)
[2020-08-19 05:18] LABS: Basophils % (manual) 0 (0.0-2.0); Blast Cells 0; Metamyelocytes % 0; Myelocytes % 0; Promyelocytes % 0; Reactive Lymphocytes 0
[2020-08-19] MEDS: VANCOMYCIN HCL 125MG/5ML ORAL SOL PO SCH ×4 (05:21→22:02)
[2020-08-19 06:34] LABS: Band Neutrophils % (manual) 2; Eosinophils % (manual) 1 (0-7); Lymphocytes % (manual) 16 (10.0-50.0); Monocytes % (manual) 5 (0-12)
[2020-08-19 09:00] VITALS: BP 98/60
[2020-08-19] MEDS: ENSURE CLEAR Apple 8oz Carton PO SCH ×3 (09:02→17:58)
[2020-08-19] MEDS: FOLIC ACID 1 MG TAB PO SCH (09:55)
[2020-08-19] MEDS: LACTULOSE 20Gm/30ML SOLN PO SCH ×2 (09:56→22:00)
[2020-08-19] MEDS: THIAMINE HCL 100 MG TAB PO SCH (09:56)
[2020-08-19] MEDS: rifAXIMin 550 MG TAB PO SCH ×2 (09:57→22:02)
[2020-08-19] MEDS: MULTIPLE VITAMIN TAB PO SCH (09:57)
[2020-08-19] MEDS: FLORASTOR (S. BOULARDII) 250 MG CAP PO SCH (09:57)
[2020-08-19] MEDS ORDERED: SPIRONOLACTONE 25 MG TAB PO ONE (12:00)
[2020-08-19 13:00] VITALS: BP 83/42
[2020-08-19] MEDS: MIDODRINE HCL 10 MG TAB PO PRN (14:17)
[2020-08-19 16:55] VITALS: BP 98/85
[2020-08-19] MEDS: SPIRONOLACTONE 25 MG TAB PO SCH (17:58)
[2020-08-19 21:00] VITALS: BP 97/55
[2020-08-19] MEDS: FAMOTIDINE (10MG/ML) 2ML VL IV SCH (22:02)
[2020-08-20 05:00] VITALS: BP 90/46
[2020-08-20] MEDS: VANCOMYCIN HCL 125MG/5ML ORAL SOL PO SCH ×5 (06:22→22:00)
[2020-08-20] MEDS: SPIRONOLACTONE 25 MG TAB PO SCH ×2 (06:39→18:00)
[2020-08-20] MEDS: ENSURE CLEAR Apple 8oz Carton PO SCH ×3 (08:21→18:00)
[2020-08-20 09:00] VITALS: BP 97/64
[2020-08-20] MEDS: THIAMINE HCL 100 MG TAB PO SCH (09:30)
[2020-08-20] MEDS: FLORASTOR (S. BOULARDII) 250 MG CAP PO SCH (09:30)
[2020-08-20] MEDS: LACTULOSE 20Gm/30ML SOLN PO SCH ×2 (09:30→22:00)
[2020-08-20] MEDS: FOLIC ACID 1 MG TAB PO SCH (09:30)
[2020-08-20] MEDS: rifAXIMin 550 MG TAB PO SCH ×2 (09:31→22:50)
[2020-08-20] MEDS: MULTIPLE VITAMIN TAB PO SCH (09:31)
[2020-08-20 13:00] VITALS: BP 94/63
[2020-08-20] MEDS ORDERED: ALBUMIN 5% 50 ML IV ONE ×2 (16:45→17:30)
[2020-08-20] MEDS ORDERED: FUROSEMIDE 20 MG TAB PO ONE (16:45)
[2020-08-20] MEDS ORDERED: ALBUMIN 25% 50 ML IV ONE (16:45)
[2020-08-20 16:59] VITALS: BP 97/66
[2020-08-20 21:53] VITALS: BP 96/58
[2020-08-20] MEDS: FAMOTIDINE (10MG/ML) 2ML VL IV SCH (22:00)
[2020-08-21 05:00] VITALS: BP 96/66
[2020-08-21] MEDS: SPIRONOLACTONE 25 MG TAB PO SCH ×2 (06:00→18:00)
[2020-08-21] MEDS: VANCOMYCIN HCL 125MG/5ML ORAL SOL PO SCH ×4 (06:00→21:11)
[2020-08-21] MEDS: ENSURE CLEAR Apple 8oz Carton PO SCH ×3 (08:00→18:00)
[2020-08-21 09:00] VITALS: BP 93/57
[2020-08-21] MEDS: FOLIC ACID 1 MG TAB PO SCH (10:00)
[2020-08-21] MEDS: LACTULOSE 20Gm/30ML SOLN PO SCH ×2 (10:00→21:11)
[2020-08-21] MEDS: FUROSEMIDE 20 MG TAB PO SCH (10:00)
[2020-08-21] MEDS: MULTIPLE VITAMIN TAB PO SCH (10:00)
[2020-08-21] MEDS: FLORASTOR (S. BOULARDII) 250 MG CAP PO SCH (10:00)
[2020-08-21] MEDS: rifAXIMin 550 MG TAB PO SCH ×2 (10:00→21:11)
[2020-08-21] MEDS: THIAMINE HCL 100 MG TAB PO SCH (10:00)
[2020-08-21 17:00] VITALS: BP 95/63
[2020-08-21] MEDS: MORPHINE SULF INJ 2 MG/ML SYRINGE 1ML IV PRN (21:10)
[2020-08-21] MEDS: FAMOTIDINE (10MG/ML) 2ML VL IV SCH (21:11)
[2020-08-21 22:21] VITALS: BP 102/60
[2020-08-22 05:00] VITALS: BP 94/48
[2020-08-22] MEDS: SPIRONOLACTONE 25 MG TAB PO SCH ×2 (05:25→18:00)
[2020-08-22] MEDS: VANCOMYCIN HCL 125MG/5ML ORAL SOL PO SCH ×4 (05:25→21:15)
[2020-08-22] MEDS: ENSURE CLEAR Apple 8oz Carton PO SCH ×3 (08:00→18:17)
[2020-08-22 09:00] VITALS: BP 93/52
[2020-08-22] MEDS: MULTIPLE VITAMIN TAB PO SCH (10:00)
[2020-08-22] MEDS: FUROSEMIDE 20 MG TAB PO SCH (10:00)
[2020-08-22] MEDS: LACTULOSE 20Gm/30ML SOLN PO SCH ×2 (10:00→21:15)
[2020-08-22] MEDS: FOLIC ACID 1 MG TAB PO SCH (12:09)
[2020-08-22] MEDS: FLORASTOR (S. BOULARDII) 250 MG CAP PO SCH (12:09)
[2020-08-22] MEDS: THIAMINE HCL 100 MG TAB PO SCH (12:09)
[2020-08-22] MEDS: rifAXIMin 550 MG TAB PO SCH ×2 (12:10→21:16)
[2020-08-22 13:00] VITALS: BP 108/62
[2020-08-22 17:00] VITALS: BP 101/61
[2020-08-22] MEDS: FAMOTIDINE (10MG/ML) 2ML VL IV SCH (21:14)
[2020-08-22 22:00] VITALS: BP 99/52
[2020-08-23] MEDS: SPIRONOLACTONE 25 MG TAB PO SCH ×2 (06:00→18:00)
[2020-08-23] MEDS: VANCOMYCIN HCL 125MG/5ML ORAL SOL PO SCH ×4 (06:00→22:20)
[2020-08-23] MEDS: ENSURE CLEAR Apple 8oz Carton PO SCH ×3 (08:00→18:00)
[2020-08-23 09:05] VITALS: BP 108/69
[2020-08-23] MEDS: rifAXIMin 550 MG TAB PO SCH ×3 (10:00→22:00)
[2020-08-23] MEDS: LACTULOSE 20Gm/30ML SOLN PO SCH ×2 (10:00→22:00)
[2020-08-23] MEDS: FUROSEMIDE 20 MG TAB PO SCH (10:00)
[2020-08-23] MEDS: MULTIPLE VITAMIN TAB PO SCH ×2 (10:00→10:44)
[2020-08-23] MEDS: FLORASTOR (S. BOULARDII) 250 MG CAP PO SCH ×2 (10:00→10:44)
[2020-08-23] MEDS: THIAMINE HCL 100 MG TAB PO SCH (10:44)
[2020-08-23] MEDS: FOLIC ACID 1 MG TAB PO SCH (10:44)
[2020-08-23 13:30] VITALS: BP 103/69
[2020-08-23 17:14] VITALS: BP 100/66
[2020-08-23] MEDS: FAMOTIDINE (10MG/ML) 2ML VL IV SCH (22:00)
[2020-08-23 23:30] VITALS: BP 117/68
[2020-08-24 05:16] VITALS: BP 141/103
[2020-08-24] MEDS: SPIRONOLACTONE 25 MG TAB PO SCH ×2 (06:04→18:00)
[2020-08-24] MEDS: VANCOMYCIN HCL 125MG/5ML ORAL SOL PO SCH ×4 (06:04→21:40)
[2020-08-24] MEDS: MORPHINE SULF INJ 2 MG/ML SYRINGE 1ML IV PRN (06:10)
[2020-08-24 08:49] VITALS: BP 103/69
[2020-08-24 09:30] LABS: Eosinophils # (auto) 0.1 10 ^3/uL (0-0.8); Eosinophils % (auto) 0.4 % (0.0-7.0)
[2020-08-24 09:31] LABS: Basophils # (auto) 0.1 10 ^3/uL (0-0.2); Basophils % (auto) 0.4 % (0.0-2.0); Hematocrit 23.9 % (36.0-46.0); Hemoglobin 7.5 g/dL (12.2-16.2); Lymphocytes # (auto) 3.5 10 ^3/uL (0.4-5.4); Lymphocytes % (auto) 11.7 % (10.0-50.0); Mean Corpuscular Hemoglobin 33.1 pg (28.0-32.0); Mean Corpuscular Hgb Conc. 31.6 g/dL (32.0-36.0); Mean Corpuscular Volume 104.6 fL (80.0-100.0); Monocytes # (auto) 1.6 10 ^3/uL (0-1.3); Monocytes % (auto) 5.3 % (0.0-12.0); Neutrophils # (auto) 24.7 10 ^3/uL (1.6-8.6); Neutrophils % (auto) 82.2 % (37.0-80.0); Nucleated Red Blood Cells % 0.1 %; Platelet Count (auto) 238 10^3/uL (140-450); Red Blood Cells 2.28 10^6/uL (4.0-5.20); Red Cell Distribution Width 18.2 % (11.8-14.3)
[2020-08-24 09:42] LABS: Albumin 1.2 g/dL (3.4-5.0); Calcium 7.7 mg/dL (8.5-10.1); Potassium 3.4 mmol/L (3.5-5.1)
[2020-08-24 09:45] LABS: BUN/Creatinine Ratio 16.5; Bilirubin, Total 5.7 mg/dL (0.2-1.0); Total Protein 6.9 g/dL (6.4-8.2)
[2020-08-24] MEDS: FLORASTOR (S. BOULARDII) 250 MG CAP PO SCH (10:00)
[2020-08-24] MEDS: FUROSEMIDE 20 MG TAB PO SCH (10:00)
[2020-08-24] MEDS: rifAXIMin 550 MG TAB PO SCH ×2 (10:00→21:40)
[2020-08-24] MEDS: FOLIC ACID 1 MG TAB PO SCH (10:00)
[2020-08-24] MEDS: THIAMINE HCL 100 MG TAB PO SCH (10:00)
[2020-08-24] MEDS: LACTULOSE 20Gm/30ML SOLN PO SCH ×2 (10:00→21:39)
[2020-08-24] MEDS: MULTIPLE VITAMIN TAB PO SCH (10:00)
[2020-08-24] MEDS: ENSURE CLEAR Apple 8oz Carton PO SCH ×3 (11:04→18:00)
[2020-08-24 13:30] VITALS: BP 91/52
[2020-08-24] MEDS ORDERED: POTASSIUM EFFERVESENT TAB 25 MEQ PO ONE (14:30)
[2020-08-24] MEDS ORDERED: FERROUS SULFATE 325 MG TAB PO ONE (14:30)
[2020-08-24] MEDS: ALBUMIN 25% 50 ML IV SCH (16:23)
[2020-08-24 17:11] VITALS: BP 108/69
[2020-08-24] MEDS: FERROUS SULFATE 325 MG TAB PO SCH (18:00)
[2020-08-24] MEDS: FAMOTIDINE (10MG/ML) 2ML VL IV SCH (21:39)
[2020-08-24 22:00] VITALS: BP 92/57
[2020-08-25] MEDS: ALBUMIN 25% 50 ML IV SCH ×2 (00:49→05:23)
[2020-08-25 05:00] VITALS: BP 149/53
[2020-08-25] MEDS: SPIRONOLACTONE 25 MG TAB PO SCH ×2 (05:22→17:42)
[2020-08-25] MEDS: VANCOMYCIN HCL 125MG/5ML ORAL SOL PO SCH ×4 (05:22→21:45)
[2020-08-25 08:00] VITALS: BP 101/59
[2020-08-25] MEDS: FERROUS SULFATE 325 MG TAB PO SCH ×2 (08:00→17:42)
[2020-08-25] MEDS: ENSURE CLEAR Apple 8oz Carton PO SCH ×3 (08:00→17:42)
[2020-08-25 09:23] LABS: Basophils # (auto) 0.1 10 ^3/uL (0-0.2); Basophils % (auto) 0.2 % (0.0-2.0); Eosinophils # (auto) 0.1 10 ^3/uL (0-0.8)
[2020-08-25 09:26] LABS: Eosinophils % (auto) 0.5 % (0.0-7.0); Hematocrit 23.9 % (36.0-46.0); Hemoglobin 7.8 g/dL (12.2-16.2); Lymphocytes # (auto) 3.9 10 ^3/uL (0.4-5.4); Lymphocytes % (auto) 13.6 % (10.0-50.0); Mean Corpuscular Hemoglobin 33.9 pg (28.0-32.0); Mean Corpuscular Hgb Conc. 32.5 g/dL (32.0-36.0); Mean Corpuscular Volume 104.5 fL (80.0-100.0); Monocytes # (auto) 1.5 10 ^3/uL (0-1.3); Monocytes % (auto) 5.2 % (0.0-12.0); Neutrophils # (auto) 23.4 10 ^3/uL (1.6-8.6); Neutrophils % (auto) 80.5 % (37.0-80.0); Platelet Count (auto) 244 10^3/uL (140-450); Red Blood Cells 2.29 10^6/uL (4.0-5.20); Red Cell Distribution Width 18.4 % (11.8-14.3); White Blood Cell 29.1 10^3/uL (4.4-10.8)
[2020-08-25 09:46] LABS: Albumin 1.4 g/dL (3.4-5.0); Calcium 7.9 mg/dL (8.5-10.1)
[2020-08-25 09:51] LABS: BUN/Creatinine Ratio 13.6; Bilirubin, Total 6.3 mg/dL (0.2-1.0); Total Protein 7.4 g/dL (6.4-8.2)
[2020-08-25] MEDS: THIAMINE HCL 100 MG TAB PO SCH (10:00)
[2020-08-25] MEDS: LACTULOSE 20Gm/30ML SOLN PO SCH ×2 (10:00→21:45)
[2020-08-25] MEDS: MULTIPLE VITAMIN TAB PO SCH (10:00)
[2020-08-25] MEDS: FLORASTOR (S. BOULARDII) 250 MG CAP PO SCH (10:00)
[2020-08-25] MEDS: rifAXIMin 550 MG TAB PO SCH ×2 (10:00→21:45)
[2020-08-25] MEDS: FOLIC ACID 1 MG TAB PO SCH (10:00)
[2020-08-25 12:00] VITALS: BP 95/50
[2020-08-25] MEDS ORDERED: POTASSIUM EFFERVESENT TAB 25 MEQ PO ONE (13:00)
[2020-08-25] MEDS ORDERED: POTASSIUM CHL 20 Meq TABLET PO ONE (13:00)
[2020-08-25 16:54] VITALS: BP 104/53
[2020-08-25] MEDS: FAMOTIDINE (10MG/ML) 2ML VL IV SCH (21:45)
[2020-08-25] MEDS: MORPHINE SULF INJ 2 MG/ML SYRINGE 1ML IV PRN (21:48)
[2020-08-25 22:00] VITALS: BP 105/53
[2020-08-26 05:00] VITALS: BP 98/56
[2020-08-26] MEDS: VANCOMYCIN HCL 125MG/5ML ORAL SOL PO SCH ×4 (06:21→22:23)
[2020-08-26] MEDS: SPIRONOLACTONE 25 MG TAB PO SCH ×2 (06:21→17:48)
[2020-08-26] MEDS: MORPHINE SULF INJ 2 MG/ML SYRINGE 1ML IV PRN (06:22)
[2020-08-26] MEDS: FERROUS SULFATE 325 MG TAB PO SCH ×2 (08:00→17:48)
[2020-08-26 09:00] VITALS: BP 98/52
[2020-08-26] MEDS: FLORASTOR (S. BOULARDII) 250 MG CAP PO SCH (10:00)
[2020-08-26] MEDS: THIAMINE HCL 100 MG TAB PO SCH (10:00)
[2020-08-26] MEDS: MULTIPLE VITAMIN TAB PO SCH (10:00)
[2020-08-26] MEDS: rifAXIMin 550 MG TAB PO SCH ×2 (10:00→22:24)
[2020-08-26] MEDS: FOLIC ACID 1 MG TAB PO SCH (10:00)
[2020-08-26] MEDS ORDERED: metroNIDAZOLE 500MG/100ML 100 ML IV ONE (12:00)
[2020-08-26 13:00] VITALS: BP 147/82
[2020-08-26] MEDS: ENSURE CLEAR Apple 8oz Carton PO SCH ×3 (13:10→17:49)
[2020-08-26 17:00] VITALS: BP 96/57
[2020-08-26 22:00] VITALS: BP 92/58
[2020-08-26] MEDS: metroNIDAZOLE 500MG/100ML 100 ML IV SCH (22:23)
[2020-08-26] MEDS: FAMOTIDINE (10MG/ML) 2ML VL IV SCH (22:23)
[2020-08-27] MEDS: MORPHINE SULF INJ 2 MG/ML SYRINGE 1ML IV PRN ×3 (01:31→22:38)
[2020-08-27 02:35] VITALS: BP 90/50
[2020-08-27 05:00] VITALS: BP 95/50
[2020-08-27] MEDS: metroNIDAZOLE 500MG/100ML 100 ML IV SCH ×3 (05:31→22:37)
[2020-08-27] MEDS: SPIRONOLACTONE 25 MG TAB PO SCH ×2 (05:31→18:00)
[2020-08-27] MEDS: VANCOMYCIN HCL 125MG/5ML ORAL SOL PO SCH ×4 (05:31→22:00)
[2020-08-27 06:38] LABS: Albumin 1.2 g/dL (3.4-5.0); Calcium 7.4 mg/dL (8.5-10.1); Potassium 3.3 mmol/L (3.5-5.1)
[2020-08-27 06:41] LABS: BUN/Creatinine Ratio 15.1; Bilirubin, Total 5.9 mg/dL (0.2-1.0); Total Protein 6.8 g/dL (6.4-8.2)
[2020-08-27 06:48] LABS: Basophils # (auto) 0.1 10 ^3/uL (0-0.2); Basophils % (auto) 0.3 % (0.0-2.0); Eosinophils # (auto) 0.2 10 ^3/uL (0-0.8); Hemoglobin 7.1 g/dL (12.2-16.2)
[2020-08-27 06:51] LABS: Eosinophils % (auto) 0.9 % (0.0-7.0); Hematocrit 22.7 % (36.0-46.0); Lymphocytes # (auto) 4.1 10 ^3/uL (0.4-5.4); Lymphocytes % (auto) 15.9 % (10.0-50.0); Mean Corpuscular Hemoglobin 33.5 pg (28.0-32.0); Mean Corpuscular Hgb Conc. 31.1 g/dL (32.0-36.0); Mean Corpuscular Volume 107.5 fL (80.0-100.0); Monocytes # (auto) 1.5 10 ^3/uL (0-1.3); Monocytes % (auto) 5.7 % (0.0-12.0); Neutrophils # (auto) 20.2 10 ^3/uL (1.6-8.6); Neutrophils % (auto) 77.2 % (37.0-80.0); Nucleated Red Blood Cells % 0.1 %; Red Blood Cells 2.11 10^6/uL (4.0-5.20); Red Cell Distribution Width 19.6 % (11.8-14.3); White Blood Cell 26.1 10^3/uL (4.4-10.8)
[2020-08-27] MEDS: ENSURE CLEAR Apple 8oz Carton PO SCH ×3 (08:00→18:00)
[2020-08-27] MEDS: FERROUS SULFATE 325 MG TAB PO SCH ×2 (08:00→18:00)
[2020-08-27 08:55] LABS: Platelet Count (auto) 192 10^3/uL (140-450)
[2020-08-27 09:00] VITALS: BP 94/51
[2020-08-27] MEDS: FOLIC ACID 1 MG TAB PO SCH (10:00)
[2020-08-27] MEDS: rifAXIMin 550 MG TAB PO SCH ×2 (10:00→22:00)
[2020-08-27] MEDS: THIAMINE HCL 100 MG TAB PO SCH (10:00)
[2020-08-27] MEDS: FLORASTOR (S. BOULARDII) 250 MG CAP PO SCH (10:00)
[2020-08-27] MEDS: MULTIPLE VITAMIN TAB PO SCH (10:00)
[2020-08-27] MEDS ORDERED: cefTRIAXone 1GM/50ML D5W 50 ML IV ONE (12:45)
[2020-08-27] MEDS ORDERED: SERTRALINE HCL 50 MG TAB PO ONE ×2 (12:45→13:15)
[2020-08-27] MEDS ORDERED: VANCOMYCIN PER PHARMACY 0 MG IV SCH (12:45)
[2020-08-27] MEDS ORDERED: POTASSIUM EFFERVESENT TAB 25 MEQ PO ONE (12:45)
[2020-08-27 13:00] VITALS: BP 94/56
[2020-08-27] MEDS ORDERED: VANCOMYCIN 1GM/250ML 250 ML IV ONE (15:00)
[2020-08-27 20:00] VITALS: BP 100/62
[2020-08-27] MEDS: FAMOTIDINE (10MG/ML) 2ML VL IV SCH (22:37)
[2020-08-27] MEDS: MUPIROCIN 2% OINT 15gm or 22gm EACHNOSTRI SCH (22:37)
[2020-08-28] MEDS: VANCOMYCIN 1GM/250ML 250 ML IV SCH ×3 (01:14→21:01)
[2020-08-28 05:00] VITALS: BP 99/56
[2020-08-28] MEDS: VANCOMYCIN HCL 125MG/5ML ORAL SOL PO SCH ×4 (06:00→22:00)
[2020-08-28] MEDS: SPIRONOLACTONE 25 MG TAB PO SCH ×2 (06:00→17:31)
[2020-08-28 07:01] LABS: Basophils # (auto) 0.1 10 ^3/uL (0-0.2); Basophils % (auto) 0.3 % (0.0-2.0); Eosinophils # (auto) 0.1 10 ^3/uL (0-0.8); Hemoglobin 7.5 g/dL (12.2-16.2)
[2020-08-28 07:05] LABS: Eosinophils % (auto) 0.6 % (0.0-7.0); Lymphocytes # (auto) 3.4 10 ^3/uL (0.4-5.4); Mean Corpuscular Hemoglobin 33.5 pg (28.0-32.0); Mean Corpuscular Hgb Conc. 31.3 g/dL (32.0-36.0); Mean Corpuscular Volume 107.2 fL (80.0-100.0); Monocytes # (auto) 1.3 10 ^3/uL (0-1.3); Monocytes % (auto) 5.5 % (0.0-12.0); Neutrophils # (auto) 19.7 10 ^3/uL (1.6-8.6); Neutrophils % (auto) 79.6 % (37.0-80.0); Nucleated Red Blood Cells % 0.1 %; Platelet Count (auto) 195 10^3/uL (140-450); Red Blood Cells 2.24 10^6/uL (4.0-5.20); Red Cell Distribution Width 19.6 % (11.8-14.3); White Blood Cell 24.7 10^3/uL (4.4-10.8)
[2020-08-28] MEDS: metroNIDAZOLE 500MG/100ML 100 ML IV SCH ×3 (07:28→23:24)
[2020-08-28] MEDS: FERROUS SULFATE 325 MG TAB PO SCH ×2 (08:00→17:37)
[2020-08-28] MEDS: ENSURE CLEAR Apple 8oz Carton PO SCH ×3 (08:00→17:37)
[2020-08-28 08:57] VITALS: BP 100/61
[2020-08-28] MEDS: FOLIC ACID 1 MG TAB PO SCH (10:00)
[2020-08-28] MEDS: MULTIPLE VITAMIN TAB PO SCH (10:00)
[2020-08-28] MEDS: FLORASTOR (S. BOULARDII) 250 MG CAP PO SCH (10:00)
[2020-08-28] MEDS: rifAXIMin 550 MG TAB PO SCH ×2 (10:00→21:35)
[2020-08-28] MEDS: SERTRALINE HCL 50 MG TAB PO SCH (10:00)
[2020-08-28] MEDS: THIAMINE HCL 100 MG TAB PO SCH (10:00)
[2020-08-28] MEDS: MUPIROCIN 2% OINT 15gm or 22gm EACHNOSTRI SCH ×2 (10:00→21:34)
[2020-08-28] MEDS: cefTRIAXone 1GM/50ML D5W 50 ML IV SCH (10:30)
[2020-08-28] MEDS: MORPHINE SULF INJ 2 MG/ML SYRINGE 1ML IV PRN ×3 (10:31→21:01)
[2020-08-28 12:48] VITALS: BP 104/62
[2020-08-28 16:34] VITALS: BP 107/63
[2020-08-28] MEDS: FAMOTIDINE (10MG/ML) 2ML VL IV SCH (21:34)
[2020-08-28 22:00] VITALS: BP 103/61
[2020-08-29 05:00] VITALS: BP 98/57
[2020-08-29] MEDS: VANCOMYCIN 1GM/250ML 250 ML IV SCH (05:38)
[2020-08-29] MEDS: VANCOMYCIN HCL 125MG/5ML ORAL SOL PO SCH ×4 (05:38→21:28)
[2020-08-29] MEDS: SPIRONOLACTONE 25 MG TAB PO SCH ×2 (05:39→18:00)
[2020-08-29] MEDS: metroNIDAZOLE 500MG/100ML 100 ML IV SCH ×3 (05:52→21:28)
[2020-08-29] MEDS: MORPHINE SULF INJ 2 MG/ML SYRINGE 1ML IV PRN ×2 (05:53→18:57)
[2020-08-29 06:08] LABS: Basophils # (auto) 0 10 ^3/uL (0-0.2); Basophils % (auto) 0.1 % (0.0-2.0); Monocytes # (auto) 1.6 10 ^3/uL (0-1.3); Monocytes % (auto) 7.6 % (0.0-12.0); White Blood Cell 21.6 10^3/uL (4.4-10.8)
[2020-08-29 06:09] LABS: Eosinophils # (auto) 0.3 10 ^3/uL (0-0.8); Eosinophils % (auto) 1.2 % (0.0-7.0); Hematocrit 23.9 % (36.0-46.0); Hemoglobin 7.4 g/dL (12.2-16.2); Lymphocytes # (auto) 2.8 10 ^3/uL (0.4-5.4); Lymphocytes % (auto) 12.8 % (10.0-50.0); Mean Corpuscular Hemoglobin 33.1 pg (28.0-32.0); Mean Corpuscular Hgb Conc. 30.8 g/dL (32.0-36.0); Mean Corpuscular Volume 107.6 fL (80.0-100.0); Neutrophils # (auto) 16.9 10 ^3/uL (1.6-8.6); Neutrophils % (auto) 78.3 % (37.0-80.0); Platelet Count (auto) 212 10^3/uL (140-450); Red Blood Cells 2.22 10^6/uL (4.0-5.20); Red Cell Distribution Width 19.8 % (11.8-14.3)
[2020-08-29 06:26] LABS: BUN/Creatinine Ratio 12.8; Calcium 7.8 mg/dL (8.5-10.1); Potassium 3.1 mmol/L (3.5-5.1)
[2020-08-29 08:00] VITALS: BP 88/46
[2020-08-29] MEDS: ENSURE CLEAR Apple 8oz Carton PO SCH ×3 (08:00→18:00)
[2020-08-29 09:00] VITALS: BP 100/58
[2020-08-29] MEDS: FERROUS SULFATE 325 MG TAB PO SCH ×2 (09:28→18:00)
[2020-08-29] MEDS: cefTRIAXone 1GM/50ML D5W 50 ML IV SCH (09:28)
[2020-08-29] MEDS: FOLIC ACID 1 MG TAB PO SCH (09:29)
[2020-08-29] MEDS: MUPIROCIN 2% OINT 15gm or 22gm EACHNOSTRI SCH ×2 (09:29→21:27)
[2020-08-29] MEDS: THIAMINE HCL 100 MG TAB PO SCH (09:29)
[2020-08-29] MEDS: SERTRALINE HCL 50 MG TAB PO SCH (09:30)
[2020-08-29] MEDS: rifAXIMin 550 MG TAB PO SCH ×2 (09:30→21:28)
[2020-08-29] MEDS: MULTIPLE VITAMIN TAB PO SCH (09:30)
[2020-08-29] MEDS: FLORASTOR (S. BOULARDII) 250 MG CAP PO SCH (09:30)
[2020-08-29] MEDS ORDERED: POTASSIUM CHL 20 Meq TABLET PO ONE (10:15)
[2020-08-29 13:00] VITALS: BP 100/56
[2020-08-29] MEDS: POTASSIUM CHL 20MEQ/100ML 100 ML IV SCH ×2 (15:10→17:16)
[2020-08-29 16:50] VITALS: BP 102/58
[2020-08-29] MEDS: FAMOTIDINE (10MG/ML) 2ML VL IV SCH (21:28)
[2020-08-29 22:00] VITALS: BP 98/55
[2020-08-30 05:00] VITALS: BP 96/54
[2020-08-30] MEDS: MORPHINE SULF INJ 2 MG/ML SYRINGE 1ML IV PRN (05:05)
[2020-08-30] MEDS: VANCOMYCIN HCL 125MG/5ML ORAL SOL PO SCH ×4 (05:47→22:32)
[2020-08-30] MEDS: SPIRONOLACTONE 25 MG TAB PO SCH (05:47)
[2020-08-30] MEDS: metroNIDAZOLE 500MG/100ML 100 ML IV SCH ×3 (05:47→22:31)
[2020-08-30] MEDS: ENSURE CLEAR Apple 8oz Carton PO SCH ×3 (08:00→18:00)
[2020-08-30] MEDS: FERROUS SULFATE 325 MG TAB PO SCH ×2 (08:00→18:00)
[2020-08-30 08:06] LABS: BUN/Creatinine Ratio 11.8; Calcium 7.6 mg/dL (8.5-10.1)
[2020-08-30 09:00] VITALS: BP 94/56
[2020-08-30] MEDS: cefTRIAXone 1GM/50ML D5W 50 ML IV SCH (09:00)
[2020-08-30] MEDS: FLORASTOR (S. BOULARDII) 250 MG CAP PO SCH (10:00)
[2020-08-30] MEDS: FOLIC ACID 1 MG TAB PO SCH (10:00)
[2020-08-30] MEDS: MULTIPLE VITAMIN TAB PO SCH (10:00)
[2020-08-30] MEDS: SERTRALINE HCL 50 MG TAB PO SCH (10:00)
[2020-08-30] MEDS: MUPIROCIN 2% OINT 15gm or 22gm EACHNOSTRI SCH ×2 (10:00→22:31)
[2020-08-30] MEDS: rifAXIMin 550 MG TAB PO SCH ×2 (10:00→22:32)
[2020-08-30] MEDS: THIAMINE HCL 100 MG TAB PO SCH (10:00)
[2020-08-30] MEDS ORDERED: SODIUM CHLORIDE 0.9% 1,000 ML IV SCH (12:30)
[2020-08-30 13:00] VITALS: BP 97/51
[2020-08-30 21:40] VITALS: BP 98/55
[2020-08-30] MEDS: FAMOTIDINE (10MG/ML) 2ML VL IV SCH (22:31)
[2020-08-30] MEDS: DOXYCYCLINE 100 MG TAB/CAP PO SCH (22:32)
[2020-08-31 05:00] VITALS: BP 99/52
[2020-08-31] MEDS: metroNIDAZOLE 500MG/100ML 100 ML IV SCH ×3 (05:46→22:17)
[2020-08-31] MEDS: VANCOMYCIN HCL 125MG/5ML ORAL SOL PO SCH ×4 (05:51→22:17)
[2020-08-31 08:00] VITALS: BP 98/64
[2020-08-31] MEDS: ENSURE CLEAR Apple 8oz Carton PO SCH ×3 (08:00→17:53)
[2020-08-31] MEDS: cefTRIAXone 1GM/50ML D5W 50 ML IV SCH (09:00)
[2020-08-31] MEDS: DOXYCYCLINE 100 MG TAB/CAP PO SCH ×2 (10:00→22:18)
[2020-08-31] MEDS: THIAMINE HCL 100 MG TAB PO SCH (10:00)
[2020-08-31] MEDS: FLORASTOR (S. BOULARDII) 250 MG CAP PO SCH (10:00)
[2020-08-31] MEDS: MUPIROCIN 2% OINT 15gm or 22gm EACHNOSTRI SCH ×2 (10:00→22:17)
[2020-08-31] MEDS: rifAXIMin 550 MG TAB PO SCH ×2 (10:54→22:18)
[2020-08-31] MEDS: FERROUS SULFATE 325 MG TAB PO SCH ×2 (10:54→17:52)
[2020-08-31] MEDS: MULTIPLE VITAMIN TAB PO SCH (10:54)
[2020-08-31] MEDS: FOLIC ACID 1 MG TAB PO SCH (10:55)
[2020-08-31] MEDS: SERTRALINE HCL 50 MG TAB PO SCH (10:56)
[2020-08-31] MEDS ORDERED: FUROSEMIDE 20 MG/2 ML VIAL IV ONE (11:00)
[2020-08-31] MEDS ORDERED: ALBUMIN 5% 250 ML IV ONE (11:00)
[2020-08-31 11:10] LABS: Albumin 1.3 g/dL (3.4-5.0); BUN/Creatinine Ratio 11.6; Bilirubin, Total 7.2 mg/dL (0.2-1.0); Calcium 7.9 mg/dL (8.5-10.1); Potassium 3.8 mmol/L (3.5-5.1); Total Protein 7.2 g/dL (6.4-8.2)
[2020-08-31 11:25] LABS: Eosinophils # (auto) 0.2 10 ^3/uL (0-0.8); Eosinophils % (auto) 0.9 % (0.0-7.0); Nucleated Red Blood Cells % 0.1 %
[2020-08-31 11:26] LABS: Basophils # (auto) 0.1 10 ^3/uL (0-0.2); Basophils % (auto) 0.3 % (0.0-2.0); Hemoglobin 8.1 g/dL (12.2-16.2); Lymphocytes # (auto) 2.6 10 ^3/uL (0.4-5.4); Lymphocytes % (auto) 13.2 % (10.0-50.0); Mean Corpuscular Hgb Conc. 31.4 g/dL (32.0-36.0); Mean Corpuscular Volume 108.5 fL (80.0-100.0); Monocytes # (auto) 1.8 10 ^3/uL (0-1.3); Monocytes % (auto) 8.9 % (0.0-12.0); Neutrophils # (auto) 15.3 10 ^3/uL (1.6-8.6); Neutrophils % (auto) 76.7 % (37.0-80.0); Platelet Count (auto) 232 10^3/uL (140-450); Red Blood Cells 2.39 10^6/uL (4.0-5.20); Red Cell Distribution Width 22.8 % (11.8-14.3); White Blood Cell 19.9 10^3/uL (4.4-10.8)
[2020-08-31 12:00] VITALS: BP 100/56
[2020-08-31 17:00] VITALS: BP 93/56
[2020-08-31 22:00] VITALS: BP 110/62
[2020-08-31] MEDS: FAMOTIDINE (10MG/ML) 2ML VL IV SCH (22:17)
[2020-09-01 05:00] VITALS: BP 98/59
[2020-09-01] MEDS: metroNIDAZOLE 500MG/100ML 100 ML IV SCH ×2 (05:44→13:06)
[2020-09-01] MEDS: VANCOMYCIN HCL 125MG/5ML ORAL SOL PO SCH ×2 (05:44→11:27)
[2020-09-01] MEDS: ENSURE CLEAR Apple 8oz Carton PO SCH ×2 (08:00→11:27)
[2020-09-01] MEDS: FERROUS SULFATE 325 MG TAB PO SCH (08:00)
[2020-09-01 09:00] VITALS: BP 94/43
[2020-09-01] MEDS: cefTRIAXone 1GM/50ML D5W 50 ML IV SCH (09:00)
[2020-09-01] MEDS: THIAMINE HCL 100 MG TAB PO SCH (09:50)
[2020-09-01] MEDS: FLORASTOR (S. BOULARDII) 250 MG CAP PO SCH (09:50)
[2020-09-01] MEDS: FOLIC ACID 1 MG TAB PO SCH (09:50)
[2020-09-01] MEDS: DOXYCYCLINE 100 MG TAB/CAP PO SCH (09:51)
[2020-09-01] MEDS: MULTIPLE VITAMIN TAB PO SCH (09:51)
[2020-09-01] MEDS: SERTRALINE HCL 50 MG TAB PO SCH (09:51)
[2020-09-01] MEDS: rifAXIMin 550 MG TAB PO SCH (09:51)
[2020-09-01] MEDS: MUPIROCIN 2% OINT 15gm or 22gm EACHNOSTRI SCH (09:58)
[2020-09-01 13:00] VITALS: BP 91/52
== END 2020-09-01 16:44 | disposition hospice, home (50) | DRG 871 ==
LOC: ER 16:46 → EDBD 16:46 → TELE 16:47 → TELE-WESTW 08-12 08:30 → WEST WING 08-18 03:27
PROVIDERS: ADMIT Nurse Practitioner; ATTEND Internal Medicine
PROC: 0W9G3ZZ Drainage of Peritoneal Cavity, Percutaneous Approach (ICD-10-PCS; principal; 2020-08-13)
DX: A41.4 Sepsis due to anaerobes (principal); E43 Unspecified severe protein-calorie malnutrition; L89.153 Pressure ulcer of sacral region, stage 3; G92 Toxic encephalopathy; N39.0 Urinary tract infection, site not specified; A04.72 Enterocolitis due to Clostridium difficile, not specified as recurrent; L89.310 Pressure ulcer of right buttock, unstageable; D64.9 Anemia, unspecified; Z68.33 Body mass index [BMI] 33.0-33.9, adult; E87.6 Hypokalemia; F10.10 Alcohol abuse, uncomplicated; F17.200 Nicotine dependence, unspecified, uncomplicated; F32.9 Major depressive disorder, single episode, unspecified; G62.9 Polyneuropathy, unspecified; K70.31 Alcoholic cirrhosis of liver with ascites; K72.90 Hepatic failure, unspecified without coma; N18.9 Chronic kidney disease, unspecified; Z20.828 Contact with and (suspected) exposure to other viral communicable diseases; Z51.5 Encounter for palliative care; Z79.899 Other long term (current) drug therapy; Z80.3 Family history of malignant neoplasm of breast; Z90.49 Acquired absence of other specified parts of digestive tract; Z91.19 Patient's noncompliance with other medical treatment and regimen; Z98.84 Bariatric surgery status
CPT/HCPCS: 10022; 36415; 51702; 70450; 71045; 71250; 74176; 76700; 76942; 80048; 80053; 80074; 80202; 80320; 81001; 81025; 82140; 82565; 82962; 83605; 83690; 83735; 83986; 84484; 85007; 85025; 85027; 85610; 85730; 87040; 87045; 87081; 87205; 87427; 87493; 89051; 93005; 96365; 96366; 96367; 96375; 97110; 97116; 97530; G0378; J0696; J1956; J2001; J2405; J2543; J3430; J3480; J3490